=== PATIENT | male | born 1930 | race Caucasian/White ===

== ENCOUNTER 2016-07-24 11:16 | Inpatient (IN) | payer MEDICARE, BC ==
[2016-07-24] MEDS: Albuterol/Ipratropium 3.0-0.5 MG/3 ML Neb Soln NEB SCH ×3 (12:00→20:33)
[2016-07-24 12:30] LABS: CHLORIDE,CL 97 mEq/L (98-106); SODIUM,NA 135 mEq/L (136-145)
[2016-07-24] MEDS ORDERED: Magnesium Hydroxide 400 MG/5 ML Susp 30 ML Cup PO PRN (13:12)
[2016-07-24] MEDS ORDERED: Acetaminophen 325 MG Tab PO PRN (13:12)
[2016-07-24] MEDS ORDERED: Azithromycin 500 MG in Sodium Chloride 0.9% 250 ML IV ONE (14:30)
[2016-07-24] MEDS ORDERED: Insulin Aspart 100 Units/ML 3 ML Pen SUBCUT ONE (14:45)
[2016-07-24] MEDS: Furosemide 40 MG Tab PO SCH (15:35)
[2016-07-24] MEDS: Insulin Aspart 100 Units/ML 3 ML Pen SUBCUT SCH ×2 (17:28→20:35)
[2016-07-24] MEDS: Folic Acid 1 MG Tab PO SCH (19:40)
[2016-07-24] MEDS: Lisinopril 20 MG Tab PO SCH (19:40)
[2016-07-24] MEDS: Carvedilol 12.5 MG Tab PO SCH (19:41)
[2016-07-24] MEDS: Simvastatin 20 MG Tab PO SCH (19:41)
[2016-07-24] MEDS: Budesonide 0.5 MG/2 ML Neb Susp NEB SCH (20:33)
[2016-07-24] MEDS: Insulin Detemir 100 Units/ML 3 ML Pen SUBCUT SCH (20:36)
[2016-07-24] MEDS: Zolpidem 5 MG Tab PO PRN (20:40)
[2016-07-25] MEDS: Psyllium Husk Powder Sugar Free 5.85 GM Packet PO SCH (07:47)
[2016-07-25] MEDS: Aspirin 81 MG Tab.EC PO SCH (07:47)
[2016-07-25] MEDS: Furosemide 40 MG Tab PO SCH ×2 (07:48→16:00)
[2016-07-25] MEDS: Carvedilol 12.5 MG Tab PO SCH ×2 (07:48→19:34)
[2016-07-25] MEDS: Lisinopril 20 MG Tab PO SCH ×2 (07:48→19:34)
[2016-07-25] MEDS: Insulin Aspart 100 Units/ML 3 ML Pen SUBCUT SCH ×4 (07:50→20:43)
[2016-07-25] MEDS: [UNRECOGNIZED DRUG - REMARK] SCH (07:50)
[2016-07-25] MEDS ORDERED: Azithromycin 500 MG in Sodium Chloride 0.9% 250 ML IV SCH (08:00)
[2016-07-25 08:09] LABS: CHLORIDE,CL 103 mEq/L (98-106); SODIUM,NA 140 mEq/L (136-145)
[2016-07-25] MEDS: Albuterol/Ipratropium 3.0-0.5 MG/3 ML Neb Soln NEB SCH ×4 (10:21→20:45)
[2016-07-25] MEDS: Budesonide 0.5 MG/2 ML Neb Susp NEB SCH ×2 (10:21→20:45)
[2016-07-25] MEDS: Digoxin 250 MCG Tab PO SCH (12:29)
[2016-07-25] MEDS ORDERED: Warfarin 2.5 MG Tab PO ONE (14:30)
[2016-07-25] MEDS: Fluconazole 100 MG Tab PO SCH (16:00)
[2016-07-25] MEDS: Folic Acid 1 MG Tab PO SCH (19:33)
[2016-07-25] MEDS: Simvastatin 20 MG Tab PO SCH (19:33)
[2016-07-25] MEDS: Insulin Detemir 100 Units/ML 3 ML Pen SUBCUT SCH (20:39)
[2016-07-25] MEDS: Zolpidem 5 MG Tab PO PRN (20:51)
--- NOTE | 2016-07-26 07:06 | PN ---
DATE: 07/25/2016 S: Veronica Lawrence came in with uncontrolled diabetes yesterday, admitted in the hospital, started on insulin. He is doing nicely. Blood sugars have dropped nicely at 16 units of short-acting and then longer acting 12 units at night. Still coughing. O: NECK: Supple. CHEST: Wheezing. CARDIAC: Sounds are good. ASSESSMENT: BRONCHIOLITIS. C-REACTIVE PROTEIN IS NORMAL. SO, I AM QUESTIONING WHETHER HE MAY HAVE LIKE A YEAST TYPE INFECTION, SO I AM GOING TO GO AHEAD AND STOP ZITHROMAX AND START HIM ON DIFLUCAN, AND MONITOR HIS BLOOD SUGARS AND HIS INR. DIAGNOSES: 1. Uncontrolled diabetes. 2. Bronchiolitis. 3. Atrial fibrillation. 4. Left ventricular systolic congestive heart failure. We will get an echo. WILLIAN /[id number]
[2016-07-26 07:19] LABS: CHLORIDE,CL 106 mEq/L (98-106); SODIUM,NA 140 mEq/L (136-145)
[2016-07-26] MEDS: Psyllium Husk Powder Sugar Free 5.85 GM Packet PO SCH (07:40)
[2016-07-26] MEDS: Aspirin 81 MG Tab.EC PO SCH (07:41)
[2016-07-26] MEDS: Fluconazole 100 MG Tab PO SCH (07:41)
[2016-07-26] MEDS: Carvedilol 12.5 MG Tab PO SCH (07:41)
[2016-07-26] MEDS: Furosemide 40 MG Tab PO SCH (07:42)
[2016-07-26] MEDS: Lisinopril 20 MG Tab PO SCH (07:42)
[2016-07-26] MEDS: [UNRECOGNIZED DRUG - REMARK] SCH (07:43)
[2016-07-26] MEDS: Insulin Aspart 100 Units/ML 3 ML Pen SUBCUT SCH ×2 (07:43→12:11)
[2016-07-26] MEDS: Albuterol/Ipratropium 3.0-0.5 MG/3 ML Neb Soln NEB SCH ×2 (09:12→13:03)
[2016-07-26] MEDS: Budesonide 0.5 MG/2 ML Neb Susp NEB SCH (09:12)
--- NOTE | 2016-07-26 11:21 | PN ---
DATE: 07/26/2016 S: Veronica Lawrence has congestive heart failure, bronchiolitis, uncontrolled diabetes. He says he feels much better today. O: NECK: Supple. CHEST: Occasional wheeze. CARDIAC: Sounds are good. No edema. ASSESSMENT: 1. LEFT VENTRICULAR SYSTOLIC CONGESTIVE HEART FAILURE. ECHO PENDING. 2. UNCONTROLLED DIABETES, THAT IS NOW CONTROLLED. HE HAS BEEN INSTRUCTED TO HOW TO INJECT HIS INSULIN. 3. BRONCHIOLITIS. I STARTED HIM ON DIFLUCAN. HE HAS THE POSSIBILITY OF YEAST INFECTION, MUCH IMPROVED. HOPEFULLY THAT IS WHAT THE PROBLEM IS. ABHIJEET/SANTO /[id number]
[2016-07-26 11:42] VITALS: BP 127/73
[2016-07-26] MEDS: Digoxin 250 MCG Tab PO SCH (12:12)
--- NOTE | 2016-07-29 07:20 | DISCH ---
Veronica Lawrence is an elderly gentleman who came in to the clinic feeling markedly weak with a diagnosis of bronchiolitis, congestive heart failure and uncontrolled diabetes. Admitted to the hospital, started on insulin and responded nicely. At the time of discharge, blood sugars were running great fasting 90 on 12 units. He was given diabetic teaching and also glucose monitoring teaching while here in the hospital. I was concerned because the antibiotics had not been doing his bronchiolitis any good, so I switched him over to Diflucan and in fact he does have yeast in his sputum and much improved just through yesterday and today after being on the yeast medications. 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 I am more concerned about the fungal infection myself. Echocardiogram is pending. Labs, CBC looked good. INRs were iatrogenically elevated. Blood sugar went from 622 to 87. Creatinine is normal. Potassium looked good. Digoxin level was perfect, proBNP 2583 that is about where he had been at before and we will follow that as soon as he gets the diabetes under control. An echo is pending. DISPOSITION: The patient now discharged home. He will see diabetic teaching next week. He will see me back next week to do a panel with a 2 hour postprandial blood sugar in it, INR. DISCHARGE MEDICATIONS: Home medications plus Diflucan 100 daily for 10 days. Levemir 12 units. DISCHARGE DIAGNOSIS: 1. UNCONTROLLED DIABETES. 2. YEAST BRONCHIOLITIS. 3. LEFT VENTRICULAR SYSTOLIC CONGESTIVE HEART FAILURE. 4. CORONARY ARTERY DISEASE. 5. HYPERTENSION. 6. HYPERLIPIDEMIA. WILLIAN /[id number]
== END 2016-07-26 14:45 | disposition home or self-care (01) | DRG 638 ==
LOC: CC.MS 11:16 → CC.FCMC 11:16 → UNDOADMIN 12:22 → CC.MS 12:22
PROVIDERS: ADMIT General Practice; ATTEND General Practice
DX: E11.65 Type 2 diabetes mellitus with hyperglycemia (principal); J21.8 Acute bronchiolitis due to other specified organisms; I50.20 Unspecified systolic (congestive) heart failure; I10 Essential (primary) hypertension; I25.10 Atherosclerotic heart disease of native coronary artery without angina pectoris; E11.9 Type 2 diabetes mellitus without complications; E78.00 Pure hypercholesterolemia, unspecified; Z85.46 Personal history of malignant neoplasm of prostate; E78.5 Hyperlipidemia, unspecified; I48.91 Unspecified atrial fibrillation; Z88.1 Allergy status to other antibiotic agents; Z79.82 Long term (current) use of aspirin; Z79.01 Long term (current) use of anticoagulants; Z79.899 Other long term (current) drug therapy
CPT/HCPCS: 36415; 71020; 80048; 80162; 82607; 82746; 82962; 83735; 83880; 84443; 85025; 85610; 86140; 87070; 87077; 87106; 87186; 87205; 93005; 93010; 93306; 94640; 94640-76; A9270-GY; J0456; J1815-GY; J3370; J7050

== ENCOUNTER 2016-08-27 16:30 | Inpatient (IN) | payer MEDICARE, BC ==
[2016-08-27] MEDS ORDERED: Docusate Sodium 100 MG Cap PO PRN (17:28)
[2016-08-27] MEDS ORDERED: Magnesium Hydroxide 400 MG/5 ML Susp 30 ML Cup PO PRN (17:28)
[2016-08-27] MEDS ORDERED: Sodium Chloride 0.9% 10 ML Syringe FLUSH PRN (17:28)
[2016-08-27 18:09] LABS: CHLORIDE,CL 106 mEq/L (98-106); SODIUM,NA 142 mEq/L (136-145)
[2016-08-27] MEDS ORDERED: Levofloxacin/Dextrose 5%-Water 500 MG in Premix Bag 1 BAG IV ONE (19:00)
[2016-08-27] MEDS: Carvedilol 12.5 MG Tab PO SCH (19:54)
[2016-08-27] MEDS: Furosemide 40 MG Tab PO SCH (19:55)
[2016-08-27] MEDS: Lisinopril 20 MG Tab PO SCH (19:55)
[2016-08-27] MEDS: Simvastatin 20 MG Tab PO SCH (19:56)
[2016-08-27] MEDS ORDERED: Insulin Detemir 100 Units/ML 3 ML Pen SUBCUT SCH ×2 (20:00→20:36)
[2016-08-27] MEDS: Temazepam 15 MG Cap PO PRN (20:57)
[2016-08-27] MEDS ORDERED: Budesonide 0.5 MG/2 ML Neb Susp NEB SCH (21:00)
[2016-08-28] MEDS: Acetaminophen 325 MG Tab PO PRN ×2 (05:38→19:47)
[2016-08-28] MEDS: Furosemide 40 MG Tab PO SCH ×2 (07:41→13:00)
[2016-08-28] MEDS: Aspirin 81 MG Tab.EC PO SCH (07:42)
[2016-08-28] MEDS: Carvedilol 12.5 MG Tab PO SCH ×2 (07:42→19:47)
[2016-08-28] MEDS: Ascorbic Acid 500 MG Tab PO SCH (07:42)
[2016-08-28] MEDS: Lisinopril 20 MG Tab PO SCH ×2 (07:42→19:47)
[2016-08-28 08:00] LABS: CHLORIDE,CL 107 mEq/L (98-106); SODIUM,NA 142 mEq/L (136-145)
[2016-08-28] MEDS ORDERED: Insulin Detemir 100 Units/ML 3 ML Pen SUBCUT SCH ×4 (08:00→20:00)
[2016-08-28] MEDS ORDERED: Fluconazole 100 MG Tab PO SCH (08:00)
--- NOTE | 2016-08-28 12:45 | PN ---
DATE: 08/28/2016 Veronica Lawrence is in with probable MRSA of his left upper extremity. He came in with moderate severe cellulitis, started him on IV vancomycin. He responded dramatically and today he is 50% better. He has less pain. Rest of lab looks good. INR was adequate. Panel-8 looks good. ABHIJEET/SANTO /[id number]
[2016-08-28] MEDS: Digoxin 250 MCG Tab PO SCH (13:00)
[2016-08-28] MEDS ORDERED: Furosemide 40 MG Tab PO SCH (16:00)
[2016-08-28] MEDS: Warfarin 2 MG Tab PO SCH (17:33)
[2016-08-28] MEDS: Levofloxacin/Dextrose 5%-Water 500 MG in Premix Bag 1 BAG IV SCH (19:43)
[2016-08-28] MEDS: Folic Acid 1 MG Tab PO SCH (19:46)
[2016-08-28] MEDS: Simvastatin 20 MG Tab PO SCH (19:46)
[2016-08-28] MEDS: Insulin Detemir 100 Units/ML 3 ML Pen SUBCUT SCH (19:50)
[2016-08-28] MEDS: Temazepam 15 MG Cap PO PRN (21:56)
[2016-08-29 07:44] LABS: CHLORIDE,CL 108 mEq/L (98-106); SODIUM,NA 142 mEq/L (136-145)
[2016-08-29] MEDS: Carvedilol 12.5 MG Tab PO SCH ×2 (08:30→20:50)
[2016-08-29] MEDS: Furosemide 40 MG Tab PO SCH ×2 (08:31→12:41)
[2016-08-29] MEDS: Ascorbic Acid 500 MG Tab PO SCH (08:32)
[2016-08-29] MEDS: Aspirin 81 MG Tab.EC PO SCH (08:33)
[2016-08-29] MEDS: Insulin Detemir 100 Units/ML 3 ML Pen SUBCUT SCH ×2 (08:34→20:51)
[2016-08-29] MEDS: Lisinopril 20 MG Tab PO SCH ×2 (08:34→20:50)
--- NOTE | 2016-08-29 10:42 | PN ---
DATE: 08/29/2016 PROBLEM: MRSA, significant cellulitis of left upper extremity. O: On examination, the patient is alert, orientated. The swelling, erythema, and edema are gone down. ASSESSMENT: CELLULITIS. P: Continue present therapy. ABHIJEET/SANTO /[id number]
[2016-08-29] MEDS: Warfarin 2 MG Tab PO SCH (12:18)
[2016-08-29] MEDS: Digoxin 250 MCG Tab PO SCH (12:18)
[2016-08-29] MEDS: Folic Acid 1 MG Tab PO SCH (20:49)
[2016-08-29] MEDS: Simvastatin 20 MG Tab PO SCH (20:49)
[2016-08-29] MEDS: Temazepam 15 MG Cap PO PRN (20:50)
[2016-08-29] MEDS: Levofloxacin/Dextrose 5%-Water 500 MG in Premix Bag 1 BAG IV SCH (20:50)
[2016-08-30] MEDS: Furosemide 40 MG Tab PO SCH ×2 (07:51→12:23)
[2016-08-30] MEDS: Carvedilol 12.5 MG Tab PO SCH (07:51)
[2016-08-30] MEDS: Aspirin 81 MG Tab.EC PO SCH (07:51)
[2016-08-30] MEDS: Lisinopril 20 MG Tab PO SCH (07:52)
[2016-08-30] MEDS: Ascorbic Acid 500 MG Tab PO SCH (07:52)
[2016-08-30] MEDS: Insulin Detemir 100 Units/ML 3 ML Pen SUBCUT SCH (08:22)
[2016-08-30 08:32] LABS: CHLORIDE,CL 108 mEq/L (98-106); SODIUM,NA 141 mEq/L (136-145)
[2016-08-30 11:40] VITALS: BP 133/76
[2016-08-30] MEDS: Digoxin 250 MCG Tab PO SCH (12:19)
--- NOTE | 2016-09-02 07:26 | DISCH ---
HOSPITAL COURSE: Veronica Lawrence came in with moderate severe cellulitis of his left upper extremity, probably MRSA because he has improved after we started him on IV vancomycin. He has had MRSA before in his lungs, responded nicely at the time of discharge, minimal erythema, minimal edema of that left upper extremity. He said he felt well enough to go home. LABORATORY DATA: Labs here in the hospital, CBC looked good. INR's remained stable. For his atrial fibrillation Panel-8 looked good. Blood sugars were good. C-reactive protein was elevated and now is coming down. Urine looked clear. Digoxin level was good. DISPOSITION: The patient now is discharged home. We will see him back in the clinic on Friday. We will check an INR and a panel 8 because of the outpatient IV vancomycin for 7 days. DISCHARGE MEDICATIONS: Hospital medications except Levaquin, he will be on IV vancomycin. I will give him prednisone 20 daily. DISCHARGE DIAGNOSIS: 1. CELLULITIS. 2. ATRIAL FIBRILLATION. 3. CHRONIC LEFT VENTRICULAR SYSTOLIC CONGESTIVE HEART FAILURE. 4. DIABETES MELLITUS. 5. HYPERTENSION. 6. HYPERLIPIDEMIA. WILLIAN /[id number]
== END 2016-08-30 13:00 | disposition home or self-care (01) | DRG 603 ==
LOC: CC.MS 16:30 → UNDOADMIN 16:30 → CC.MS 17:28
PROVIDERS: ADMIT General Practice; ATTEND General Practice
DX: L03.114 Cellulitis of left upper limb (principal); I50.22 Chronic systolic (congestive) heart failure; A49.02 Methicillin resistant Staphylococcus aureus infection, unspecified site; I48.91 Unspecified atrial fibrillation; M19.90 Unspecified osteoarthritis, unspecified site; I11.0 Hypertensive heart disease with heart failure; E78.5 Hyperlipidemia, unspecified; E78.00 Pure hypercholesterolemia, unspecified; E11.9 Type 2 diabetes mellitus without complications; Z85.46 Personal history of malignant neoplasm of prostate; Z79.01 Long term (current) use of anticoagulants; Z79.82 Long term (current) use of aspirin; Z79.4 Long term (current) use of insulin; Z79.899 Other long term (current) drug therapy; Z88.1 Allergy status to other antibiotic agents
CPT/HCPCS: 36415; 80048; 80053; 80162; 80202; 81001; 82962; 83735; 84443; 85025; 85610; 86140; A9270-GY; J1815-GY; J1956; J3370; J7050

== ENCOUNTER 2016-12-30 15:42 | Inpatient (IN) | payer MEDICARE, BC ==
[2016-12-30] MEDS ORDERED: Acetaminophen 325 MG Tab PO ONE (16:26)
[2016-12-30] MEDS ORDERED: Sodium Chloride 0.9% 10 ML Syringe FLUSH PRN (16:30)
[2016-12-30] MEDS ORDERED: Temazepam 15 MG Cap PO PRN (16:30)
[2016-12-30] MEDS ORDERED: Magnesium Hydroxide 400 MG/5 ML Susp 30 ML Cup PO PRN (16:30)
[2016-12-30] MEDS: Albuterol/Ipratropium 3.0-0.5 MG/3 ML Neb Soln NEB SCH ×2 (17:00→20:26)
[2016-12-30] MEDS ORDERED: methylPREDNISolone Sodium Succinate 125 MG/2 ML SDV IV ONE (17:00)
[2016-12-30] MEDS: cefTRIAXone 1 GM Vial IVPUSH SCH (17:02)
[2016-12-30] MEDS: Furosemide 40 MG Tab PO SCH (17:11)
[2016-12-30 17:20] LABS: CHLORIDE,CL 103 mEq/L (98-106); SODIUM,NA 139 mEq/L (136-145)
[2016-12-30] MEDS ORDERED: Insulin Aspart 100 Units/ML 3 ML Pen SUBCUT SCH (17:30)
[2016-12-30] MEDS: Insulin Aspart 100 Units/ML 3 ML Pen SUBCUT SCH ×2 (17:46→20:29)
[2016-12-30] MEDS: Azithromycin 500 MG in Sodium Chloride 0.9% 250 ML IV SCH (18:04)
[2016-12-30] MEDS: Lisinopril 20 MG Tab PO SCH (19:46)
[2016-12-30] MEDS: Simvastatin 20 MG Tab PO SCH (19:46)
[2016-12-30] MEDS: Folic Acid 1 MG Tab PO SCH (19:46)
[2016-12-30] MEDS: Carvedilol 12.5 MG Tab PO SCH (19:47)
[2016-12-30] MEDS: Psyllium Husk Powder Sugar Free 5.85 GM Packet PO SCH (19:49)
[2016-12-30] MEDS: Insulin Detemir 100 Units/ML 3 ML Pen SUBCUT SCH (20:29)
[2016-12-30] MEDS: Zolpidem 5 MG Tab PO PRN (20:58)
[2016-12-31 07:35] LABS: CHLORIDE,CL 105 mEq/L (98-106); SODIUM,NA 139 mEq/L (136-145)
[2016-12-31] MEDS: methylPREDNISolone Sodium Succinate 125 MG/2 ML SDV IVPUSH SCH (07:56)
[2016-12-31] MEDS ORDERED: Non-Formulary Medication 1 Each (Psyllium Husk [Metamucil] 660 GM) PO SCH (08:00)
[2016-12-31] MEDS ORDERED: ASPARTAME PO SCH (08:00)
[2016-12-31] MEDS ORDERED: PSYLLIUM SEED PO SCH (08:00)
[2016-12-31] MEDS: Carvedilol 12.5 MG Tab PO SCH ×2 (08:04→19:45)
[2016-12-31] MEDS: Spironolactone 25 MG Tab PO SCH (08:04)
[2016-12-31] MEDS: Aspirin 81 MG Tab.EC PO SCH (08:04)
[2016-12-31] MEDS: Lisinopril 20 MG Tab PO SCH ×2 (08:04→19:40)
[2016-12-31] MEDS: Furosemide 40 MG Tab PO SCH ×2 (08:05→12:23)
[2016-12-31] MEDS: Psyllium Husk Powder Sugar Free 5.85 GM Packet PO SCH (08:06)
[2016-12-31] MEDS: Insulin Detemir 100 Units/ML 3 ML Pen SUBCUT SCH ×3 (08:07→20:33)
[2016-12-31] MEDS: Insulin Aspart 100 Units/ML 3 ML Pen SUBCUT SCH ×4 (08:08→20:35)
[2016-12-31] MEDS: Albuterol/Ipratropium 3.0-0.5 MG/3 ML Neb Soln NEB SCH ×4 (09:01→20:27)
--- NOTE | 2016-12-31 10:17 | PN ---
DATE: 12/31/2016 S: This gentleman came in with [id number] bronchiolitis and congestive heart failure, which is chronic. O: NECK: Supple. CHEST: A little bit of wheezing, but much improved. CARDIAC: Sounds are okay. EXTREMITIES: No edema. ASSESSMENT: 1. CHRONIC LEFT VENTRICULAR SYSTOLIC CONGESTIVE HEART FAILURE. 2. BRONCHIOLITIS. P: Continue present therapy. ABHIJEET/SANTO /[id number]
[2016-12-31] MEDS ORDERED: Digoxin 250 MCG Tab PO SCH (12:00)
[2016-12-31] MEDS: cefTRIAXone 1 GM Vial IVPUSH SCH (15:50)
[2016-12-31] MEDS: Azithromycin 500 MG in Sodium Chloride 0.9% 250 ML IV SCH (16:47)
[2016-12-31] MEDS: Simvastatin 20 MG Tab PO SCH (19:44)
[2016-12-31] MEDS: Folic Acid 1 MG Tab PO SCH (19:45)
[2016-12-31] MEDS: Zolpidem 5 MG Tab PO PRN (20:27)
[2017-01-01] MEDS: Zolpidem 5 MG Tab PO PRN (00:24)
[2017-01-01] MEDS: Aspirin 81 MG Tab.EC PO SCH (07:31)
[2017-01-01] MEDS: Carvedilol 12.5 MG Tab PO SCH (07:31)
[2017-01-01] MEDS: Spironolactone 25 MG Tab PO SCH (07:31)
[2017-01-01] MEDS: Furosemide 40 MG Tab PO SCH (07:32)
[2017-01-01] MEDS: methylPREDNISolone Sodium Succinate 125 MG/2 ML SDV IVPUSH SCH (07:33)
[2017-01-01] MEDS: Lisinopril 20 MG Tab PO SCH (07:33)
[2017-01-01 07:34] VITALS: BP 142/70
[2017-01-01] MEDS: Insulin Detemir 100 Units/ML 3 ML Pen SUBCUT SCH (07:43)
[2017-01-01] MEDS: Insulin Aspart 100 Units/ML 3 ML Pen SUBCUT SCH (07:46)
[2017-01-01] MEDS ORDERED: Psyllium Husk Powder Sugar Free 5.85 GM Packet PO SCH (08:00)
[2017-01-01] MEDS: Albuterol/Ipratropium 3.0-0.5 MG/3 ML Neb Soln NEB SCH (09:01)
[2017-01-01] MEDS ORDERED: Warfarin 2 MG Tab PO SCH (12:00)
--- NOTE | 2017-01-02 08:37 | DISCH ---
HOSPITAL COURSE: Veronica Lawrence is an elderly gentleman came in with shortness of breath, diagnosis of bronchiolitis, admitted, now started on IV antibiotics. Some IV steroids have caused his blood sugar to go high. At the time of discharge, neck was supple, chest clear, cardiac sounds are good. He had no edema. Lab here in the hospital, digoxin level borderline. INR was going up from IV antibiotics. We will modify that. On admission, his white count was 14.6 and now repeat that. Kidney functions were good. Blood sugars were elevated. C- reactive protein 5.3. ProBNP was 3238, which he has been at for years from his chronic congestive heart failure. Urinalysis looked good. DISPOSITION: The patient now discharged home. We will see him back in the clinic next Friday for an INR. DISCHARGE MEDICATIONS: Home medications, but we will decrease his Coumadin to 1 mg daily because of continue antibiotics. Discharge medications, again home medications other than the Coumadin and prednisone 20 daily for 5 days, Levaquin 500 daily. DISCHARGE DIAGNOSIS: 1. ACUTE BRONCHIOLITIS. 2. LEFT VENTRICULAR SYSTOLIC CONGESTIVE HEART FAILURE. 3. DIABETES MELLITUS. 4. ATRIAL FIBRILLATION. 5. HYPERLIPIDEMIA. 6. HYPERTENSION. 7. CORONARY ARTERY DISEASE. 8. PROSTATE CANCER. ABHIJEET/SANTO /[id number]
== END 2017-01-01 10:15 | disposition home or self-care (01) | DRG 202 ==
LOC: CC.MS 16:02 → UNDOADMIN 16:02 → CC.MS 16:30
PROVIDERS: ADMIT General Practice; ATTEND General Practice
DX: J21.9 Acute bronchiolitis, unspecified (principal); I50.1 Left ventricular failure, unspecified; I50.22 Chronic systolic (congestive) heart failure; I11.0 Hypertensive heart disease with heart failure; I48.91 Unspecified atrial fibrillation; E11.9 Type 2 diabetes mellitus without complications; E78.5 Hyperlipidemia, unspecified; I25.10 Atherosclerotic heart disease of native coronary artery without angina pectoris; C61 Malignant neoplasm of prostate; Z79.01 Long term (current) use of anticoagulants; Z79.82 Long term (current) use of aspirin; Z79.4 Long term (current) use of insulin; Z79.899 Other long term (current) drug therapy
CPT/HCPCS: 36415; 71020; 80048; 80053; 80162; 81001; 82962; 83735; 83880; 84443; 85025; 85610; 86140; 87070; 87205; 93005; 94640; 94640-76; 94644; 97161-GP; A9270-GY; J0456; J0696; J1815-GY; J2930; J7050

== ENCOUNTER 2017-05-05 10:53 | Inpatient (IN) | payer MEDICARE, BC ==
[2017-05-05] MEDS ORDERED: Temazepam 15 MG Cap PO PRN (12:07)
[2017-05-05] MEDS ORDERED: Acetaminophen 325 MG Tab PO PRN (12:07)
[2017-05-05] MEDS ORDERED: Sodium Chloride 0.9% 10 ML Syringe FLUSH PRN (12:07)
[2017-05-05] MEDS ORDERED: Ondansetron 4 MG/2 ML SDV IV PRN (12:07)
[2017-05-05] MEDS ORDERED: Magnesium Hydroxide 400 MG/5 ML Susp 30 ML Cup PO PRN (12:07)
[2017-05-05] MEDS ORDERED: IPRATROPIUM BROMIDE NS PRN (13:02)
[2017-05-05] MEDS: Albuterol/Ipratropium 3.0-0.5 MG/3 ML Neb Soln NEB SCH ×3 (13:34→21:01)
[2017-05-05] MEDS: cefTRIAXone 1 GM Vial IVPUSH SCH (13:52)
[2017-05-05] MEDS: methylPREDNISolone Sodium Succinate 125 MG/2 ML SDV IVPUSH SCH (13:53)
[2017-05-05] MEDS: Warfarin 2 MG Tab PO SCH (14:56)
[2017-05-05] MEDS: Azithromycin 500 MG in Sodium Chloride 0.9% 250 ML IV SCH (14:57)
[2017-05-05] MEDS: Insulin Aspart 100 Units/ML 3 ML Pen SUBCUT SCH ×2 (19:02→21:00)
[2017-05-05] MEDS: Carvedilol 12.5 MG Tab PO SCH (20:02)
[2017-05-05] MEDS: Simvastatin 20 MG Tab PO SCH (20:02)
[2017-05-05] MEDS: Cholecalciferol (Vitamin D3) 1,000 Unit Tab PO SCH (20:03)
[2017-05-05] MEDS: Folic Acid 1 MG Tab PO SCH (20:03)
[2017-05-05] MEDS: Insulin Detemir 100 Units/ML 3 ML Pen SUBCUT SCH (21:00)
[2017-05-05] MEDS: Zolpidem 5 MG Tab PO PRN (21:29)
[2017-05-06] MEDS: Carvedilol 12.5 MG Tab PO SCH ×2 (08:00→20:02)
[2017-05-06] MEDS: Aspirin 81 MG Tab.EC PO SCH (08:00)
[2017-05-06] MEDS: Spironolactone 25 MG Tab PO SCH (08:00)
[2017-05-06] MEDS: Montelukast 10 MG Tab PO SCH (08:00)
[2017-05-06] MEDS: Warfarin 2 MG Tab PO SCH (08:00)
[2017-05-06] MEDS: Furosemide 40 MG Tab PO SCH ×2 (08:00→12:00)
[2017-05-06] MEDS: Insulin Detemir 100 Units/ML 3 ML Pen SUBCUT SCH ×2 (08:00→20:04)
[2017-05-06] MEDS: Digoxin 125 MCG Tab PO SCH (08:00)
[2017-05-06] MEDS: Psyllium Husk Powder Sugar Free 5.85 GM Packet PO SCH (08:00)
[2017-05-06] MEDS: Albuterol/Ipratropium 3.0-0.5 MG/3 ML Neb Soln NEB SCH ×4 (08:00→20:02)
[2017-05-06] MEDS: Insulin Aspart 100 Units/ML 3 ML Pen SUBCUT SCH ×4 (12:00→20:48)
[2017-05-06] MEDS: Azithromycin 500 MG in Sodium Chloride 0.9% 250 ML IV SCH (14:36)
[2017-05-06] MEDS: methylPREDNISolone Sodium Succinate 125 MG/2 ML SDV IVPUSH SCH (14:38)
[2017-05-06] MEDS: cefTRIAXone 1 GM Vial IVPUSH SCH (14:38)
[2017-05-06] MEDS: Cholecalciferol (Vitamin D3) 1,000 Unit Tab PO SCH (20:02)
[2017-05-06] MEDS: Simvastatin 20 MG Tab PO SCH (20:02)
[2017-05-06] MEDS: Folic Acid 1 MG Tab PO SCH (20:02)
[2017-05-06] MEDS: Zolpidem 5 MG Tab PO PRN (20:51)
[2017-05-07] MEDS: Psyllium Husk Powder Sugar Free 5.85 GM Packet PO SCH (08:08)
[2017-05-07] MEDS: Albuterol/Ipratropium 3.0-0.5 MG/3 ML Neb Soln NEB SCH ×4 (08:08→21:05)
[2017-05-07] MEDS: Carvedilol 12.5 MG Tab PO SCH ×2 (08:09→21:04)
[2017-05-07] MEDS: Lisinopril 5 MG Tab PO SCH (08:09)
[2017-05-07] MEDS: Spironolactone 25 MG Tab PO SCH (08:09)
[2017-05-07] MEDS: Furosemide 40 MG Tab PO SCH ×2 (08:10→11:32)
[2017-05-07] MEDS: Digoxin 125 MCG Tab PO SCH (08:10)
[2017-05-07] MEDS: Aspirin 81 MG Tab.EC PO SCH (08:10)
[2017-05-07] MEDS: Montelukast 10 MG Tab PO SCH (08:10)
[2017-05-07] MEDS: Insulin Detemir 100 Units/ML 3 ML Pen SUBCUT SCH ×2 (08:11→21:07)
[2017-05-07] MEDS: Insulin Aspart 100 Units/ML 3 ML Pen SUBCUT SCH ×4 (08:11→21:07)
[2017-05-07] MEDS: Warfarin 2 MG Tab PO SCH (08:12)
--- NOTE | 2017-05-07 08:20 | PN ---
DATE: 05/06/2017 S: Veronica Lawrence is in with acute bronchiolitis, atrial fibrillation, and congestive heart failure, presently on IV therapy. He says he feels much better today. O: NECK: Supple. CHEST: Only occasional wheeze today. CARDIAC: Sounds are good. No edema. ASSESSMENT: BRONCHIOLITIS, QUESTION EARLY ASPIRATION PNEUMONITIS. P: Continue present therapy. ABHIJEET/SANTO /[id number]
[2017-05-07] MEDS: Lactated Ringers 1,000 ML IV SCH ×2 (11:32→21:43)
--- NOTE | 2017-05-07 11:59 | PN ---
DATE: 05/07/2017 Veronica Lawrence is in with probably aspiration bronchiolitis with left ventricular systolic congestive heart failure. On review of lab, his white counts drop, INR is adequate, blood sugars have been okay, C-reactive protein is up a little bit. Otherwise, he is doing better physically, so we will continue to monitor him. DIAGNOSES: Bronchiolitis, question aspiration pneumonitis; left ventricular systolic congestive heart failure; and diabetes mellitus. ABHIJEET/SANTO /[id number]
[2017-05-07] MEDS: Azithromycin 500 MG in Sodium Chloride 0.9% 250 ML IV SCH (13:00)
[2017-05-07] MEDS: cefTRIAXone 1 GM Vial IVPUSH SCH (13:00)
[2017-05-07] MEDS: methylPREDNISolone Sodium Succinate 125 MG/2 ML SDV IVPUSH SCH (13:00)
[2017-05-07] MEDS: Sulfamethoxazole/Trimethoprim 800-160 MG Tab PO SCH (21:04)
[2017-05-07] MEDS: Folic Acid 1 MG Tab PO SCH (21:04)
[2017-05-07] MEDS: Cholecalciferol (Vitamin D3) 1,000 Unit Tab PO SCH (21:04)
[2017-05-07] MEDS: Simvastatin 20 MG Tab PO SCH (21:05)
[2017-05-07] MEDS: Zolpidem 5 MG Tab PO PRN (21:43)
[2017-05-08] MEDS: Carvedilol 12.5 MG Tab PO SCH ×2 (07:53→19:52)
[2017-05-08] MEDS: Albuterol/Ipratropium 3.0-0.5 MG/3 ML Neb Soln NEB SCH ×4 (07:53→19:52)
[2017-05-08] MEDS: Sulfamethoxazole/Trimethoprim 800-160 MG Tab PO SCH ×2 (07:53→19:52)
[2017-05-08] MEDS: Montelukast 10 MG Tab PO SCH (07:53)
[2017-05-08] MEDS: Lisinopril 5 MG Tab PO SCH (07:53)
[2017-05-08] MEDS: Digoxin 125 MCG Tab PO SCH (07:53)
[2017-05-08] MEDS: Psyllium Husk Powder Sugar Free 5.85 GM Packet PO SCH (07:53)
[2017-05-08] MEDS: Aspirin 81 MG Tab.EC PO SCH (07:53)
[2017-05-08] MEDS: Spironolactone 25 MG Tab PO SCH (07:53)
[2017-05-08] MEDS: Furosemide 40 MG Tab PO SCH ×2 (07:53→11:51)
[2017-05-08] MEDS: Warfarin 2 MG Tab PO SCH (07:53)
[2017-05-08] MEDS: Insulin Aspart 100 Units/ML 3 ML Pen SUBCUT SCH ×4 (07:55→20:07)
[2017-05-08] MEDS: Insulin Detemir 100 Units/ML 3 ML Pen SUBCUT SCH ×2 (07:57→20:07)
--- NOTE | 2017-05-08 09:54 | PCM.PN ---
- General Info Date of Service: 05/08/17 Admission Dx/Problem (Free Text): RUL and RML Pneumonia Subjective Update: Patient reports he was feeling better yesterday. He reports he was up walking around in the halls. He does report that this morning he feels a little worse. Patient is requiring 1 L O2. He reports continued cough, productive of a small amount of sputum. Denies any fever or chills. Denies any shortness of breath at rest. Functional Status: Reports: Pain Controlled, Tolerating Diet, Ambulating, Urinating. Denies: New Symptoms - Review of Systems General: Reports: No Symptoms. Denies: Fever, Weakness, Fatigue HEENT: Reports: No Symptoms Pulmonary: Reports: Cough, Wheezing. Denies: Shortness of Breath, Pleuritic Chest Pain, Sputum, Hemoptysis Cardiovascular: Reports: Dyspnea on Exertion. Denies: Chest Pain, Palpitations , Edema, Lightheadedness Gastrointestinal: Reports: No Symptoms Genitourinary: Reports: No Symptoms Musculoskeletal: Reports: No Symptoms Skin: Reports: No Symptoms Neurological: Reports: No Symptoms Psychiatric: Reports: No Symptoms - Patient Data Vitals - Most Recent: Last Vital Signs Temp 96.2 F 05/08/17 08:00 Pulse 70 05/08/17 08:00 Resp 21 H 05/08/17 08:00 BP 148/75 H 05/08/17 08:00 Pulse Ox 95 05/08/17 08:00 Weight - Most Recent: 170 lb I&O - Last 24 Hours: Intake & Output 05/07/17 05/08/17 05/08/17 22:59 06:59 14:59 Intake Total 764 Balance 764 Lab Results Last 24 Hours: Laboratory Results - last 24 hr 05/07/17 05/07/17 05/07/17 Range/Units 11:41 17:11 19:56 WBC (5.0-10.0) 10^3/uL RBC (4.50-6.00) 10^6/uL Hgb (14.0-18.0) g/dL Hct (40.0-54.0) % MCV (82.0-94.0) fL MCH (27.0-32.0) pg MCHC (33.0-38.0) g/dL RDW Coeff of Brooke (11.0-15.0) % Plt Count (150-400) 10^3/uL Neut % (Auto) (35-85) % Lymph % (Auto) (10-55) % [place] % (Auto) (0-16) % Eos % (Auto) (0-5) % Baso % (Auto) (0-3) % Neut # (Auto) (1.80-7.00) 10^3/uL Lymph # (Auto) (1.00-4.80) 10^3/uL [place] # (Auto) (0.00-0.80) 10^3/uL Eos # (Auto) (0.00-0.45) 10^3/uL Baso # (Auto) 10^3/uL PT (9.7-12.3) SEC INR (0.92-1.18) Sodium (136-145) mEq/L Potassium (3.5-5.0) mEq/L Chloride (98-106) mEq/L Carbon Dioxide (21-32) mmol/L BUN (7-18) mg/dL Creatinine (0.7-1.3) mg/dL Est Cr Clr Drug Dosing mL/min Estimated GFR (MDRD) (>=60) mL/min Glucose (75-99) mg/dL POC Glucose 238 H 162 H 237 H (75-105) mg/dl Calcium (8.4-10.1) mg/dL C-Reactive Protein (0.2-0.8) mg/dL 05/08/17 05/08/17 05/08/17 Range/Units 07:15 07:15 07:15 WBC 16.1 H (5.0-10.0) 10^3/uL RBC 4.22 L (4.50-6.00) 10^6/uL Hgb 13.4 L (14.0-18.0) g/dL Hct 40.9 (40.0-54.0) % MCV 96.9 H (82.0-94.0) fL MCH 31.8 (27.0-32.0) pg MCHC 32.8 L (33.0-38.0) g/dL RDW Coeff of Brooke 14.8 (11.0-15.0) % Plt Count 246 (150-400) 10^3/uL Neut % (Auto) 89.5 H (35-85) % Lymph % (Auto) 5.7 L (10-55) % [place] % (Auto) 4.8 (0-16) % Eos % (Auto) 0 (0-5) % Baso % (Auto) 0 (0-3) % Neut # (Auto) 14.36 H (1.80-7.00) 10^3/uL Lymph # (Auto) 0.92 L (1.00-4.80) 10^3/uL [place] # (Auto) 0.77 (0.00-0.80) 10^3/uL Eos # (Auto) 0.00 (0.00-0.45) 10^3/uL Baso # (Auto) 0.00 10^3/uL PT 28.5 H (9.7-12.3) SEC INR 2.56 H (0.92-1.18) Sodium 142 (136-145) mEq/L Potassium 4.3 (3.5-5.0) mEq/L Chloride 108 H (98-106) mEq/L Carbon Dioxide 28 (21-32) mmol/L BUN 44 H (7-18) mg/dL Creatinine 1.4 H (0.7-1.3) mg/dL Est Cr Clr Drug Dosing 34.81 mL/min Estimated GFR (MDRD) 48 L (>=60) mL/min Glucose 137 H (75-99) mg/dL POC Glucose (75-105) mg/dl Calcium 8.4 (8.4-10.1) mg/dL C-Reactive Protein 3.9 H (0.2-0.8) mg/dL 05/08/17 Range/Units 07:50 WBC (5.0-10.0) 10^3/uL RBC (4.50-6.00) 10^6/uL Hgb (14.0-18.0) g/dL Hct (40.0-54.0) % MCV (82.0-94.0) fL MCH (27.0-32.0) pg MCHC (33.0-38.0) g/dL RDW Coeff of Brooke (11.0-15.0) % Plt Count (150-400) 10^3/uL Neut % (Auto) (35-85) % Lymph % (Auto) (10-55) % [place] % (Auto) (0-16) % Eos % (Auto) (0-5) % Baso % (Auto) (0-3) % Neut # (Auto) (1.80-7.00) 10^3/uL Lymph # (Auto) (1.00-4.80) 10^3/uL [place] # (Auto) (0.00-0.80) 10^3/uL Eos # (Auto) (0.00-0.45) 10^3/uL Baso # (Auto) 10^3/uL PT (9.7-12.3) SEC INR (0.92-1.18) Sodium (136-145) mEq/L Potassium (3.5-5.0) mEq/L Chloride (98-106) mEq/L Carbon Dioxide (21-32) mmol/L BUN (7-18) mg/dL Creatinine (0.7-1.3) mg/dL Est Cr Clr Drug Dosing mL/min Estimated GFR (MDRD) (>=60) mL/min Glucose (75-99) mg/dL POC Glucose 128 H (75-105) mg/dl Calcium (8.4-10.1) mg/dL C-Reactive Protein (0.2-0.8) mg/dL [place] Results Last 24 Hours: Microbiology 05/05/17 12:07 Gram Stain - Final Sputum - Expectorated Sputum Culture - Final (Mrsa) Staphylococcus Aureus Med Orders - Current: Current Medications Acetaminophen (Tylenol) 650 mg PO Q4H PRN PRN Reason: Pain (Mild 1-3)/fever Last Admin: 05/05/17 14:05 Dose: 650 mg Albuterol/Ipratropium (Duoneb 3.0-0.5 Mg/3 Ml) 3 ml NEB QID [facility] Last Admin: 05/08/17 07:53 Dose: 3 ml Aspirin (Halfprin) 81 mg PO DAILY [facility] Last Admin: 05/08/17 07:53 Dose: 81 mg Carvedilol (Coreg) 25 mg PO BID [facility] Last Admin: 05/08/17 07:53 Dose: 25 mg Cholecalciferol (Vitamin D3) 2,000 units PO BEDTIME [facility] Last Admin: 05/07/17 21:04 Dose: 2,000 units Digoxin (Lanoxin) 125 mcg PO DAILY [facility] Last Admin: 05/08/17 07:53 Dose: 125 mcg Folic Acid (Folic Acid) 0.5 mg PO BEDTIME [facility] Last Admin: 05/07/17 21:04 Dose: 0.5 mg Furosemide (Lasix) 40 mg PO 1200 [facility] Last Admin: 05/07/17 11:32 Dose: 40 mg Furosemide (Lasix) 40 mg PO WITHBREAKFAST [facility] Last Admin: 05/08/17 07:53 Dose: 40 mg Lactated Ringer's (Ringers, Lactated) 1,000 mls @ 75 mls/hr IV ASDIRECTED [facility] Last Admin: 05/07/17 21:43 Dose: 75 mls/hr Vancomycin HCl 1 gm/ Sodium (Chloride) 250 mls @ 167 mls/hr IV Q24H [facility] Last Admin: 05/08/17 07:55 Dose: 167 mls/hr Insulin Aspart (Novolog) 0 unit SUBCUT WITHMEALSANDBED [facility] PRN Reason: Protocol Last Admin: 05/08/17 07:55 Dose: Not Given Insulin Detemir (Levemir) 8 unit SUBCUT BEDTIME [facility] Last Admin: 05/07/17 21:07 Dose: 8 units Insulin Detemir (Levemir) 12 unit SUBCUT WITHBREAKFAST [facility] Last Admin: 05/08/17 07:57 Dose: 12 units Lisinopril (Prinivil) 5 mg PO DAILY [facility] Last Admin: 05/08/17 07:53 Dose: 5 mg Magnesium Hydroxide (Milk Of Magnesia) 30 ml PO Q12H PRN PRN Reason: Constipation Methylprednisolone Sodium Succinate (Solu-Medrol) 62.5 mg IVPUSH Q24H [facility] Last Admin: 05/07/17 13:00 Dose: 62.5 mg Montelukast Sodium (Singulair) 10 mg PO DAILY [facility] Last Admin: 05/08/17 07:53 Dose: 10 mg Ondansetron HCl (Zofran) 4 mg IV Q6H PRN PRN Reason: Nausea/Vomiting Psyllium Husk (Metamucil Sugar Free) 1 pkt PO DAILY [facility] Last Admin: 05/08/17 07:53 Dose: 1 pkt Simvastatin (Zocor) 20 mg PO BEDTIME [facility] Last Admin: 05/07/17 21:05 Dose: 20 mg Sodium Chloride (Saline Flush) 10 ml FLUSH ASDIRECTED PRN PRN Reason: Keep Vein Open Spironolactone (Aldactone) 25 mg PO DAILY [facility] Last Admin: 05/08/17 07:53 Dose: 25 mg Temazepam (Restoril) 15 mg PO BEDTIME PRN PRN Reason: Sleep Trimethoprim/Sulfamethoxazole (Septra Ds) 1 tab PO BID [facility] Last Admin: 05/08/17 07:53 Dose: 1 tab Vancomycin HCl (Pharmacy To Dose - Vancomycin) 1 dose .XX ASDIRECTED [facility] Warfarin Sodium (Coumadin) 2 mg PO DAILY [facility] Last Admin: 05/08/17 07:53 Dose: 2 mg Zolpidem Tartrate (Ambien) 5 mg PO BEDTIME PRN PRN Reason: Insomnia Last Admin: 05/07/17 21:43 Dose: 5 mg Discontinued Medications Ceftriaxone Sodium (Rocephin) 1 gm IVPUSH Q24H [facility] Last Admin: 05/07/17 13:00 Dose: 1 gm Azithromycin 500 mg/ Sodium (Chloride) 250 mls @ 250 mls/hr IV Q24H [facility] Last Admin: 05/07/17 13:00 Dose: 250 mls/hr - Exam Quality Assessment: Supplemental Oxygen, DVT Prophylaxis General: Alert, Oriented, No Acute Distress HEENT: Pupils Equal, Pupils Reactive, EOMI, Mucous Membr. Moist/Bug Tussle Neck: Supple Lungs: Decreased Breath Sounds, Wheezing Cardiovascular: Regular Rate, Regular Rhythm, No Murmurs GI/Abdominal Exam: Normal Bowel Sounds, Soft, Non-Tender, No Organomegaly, No Distention, No Abnormal Bruit, No Mass, Pelvis Stable Back Exam: Normal Inspection, Full Range of Motion Extremities: Normal Inspection, Normal Range of Motion, Non-Tender, No Pedal Edema, Normal Capillary Refill Skin: Warm, Dry, Intact Neurological: No New Focal Deficit Psy/Mental Status: Alert, Normal Affect, Normal Mood - Problem List & Annotations (1) Pneumonia SNOMED Code(s): 845838972 Code(s): J18.9 - PNEUMONIA, UNSPECIFIED ORGANISM Status: Acute Priority: High Current Visit: Yes Qualifiers: Pneumonia type: due to methicillin-resistant Staphylococcus aureus (MRSA) Laterality: right Lung location: upper lobe of lung Qualified Code(s): J15.212 - Pneumonia due to Methicillin resistant Staphylococcus aureus (2) Congestive heart failure (CHF) SNOMED Code(s): 84633830 Code(s): I50.9 - HEART FAILURE, UNSPECIFIED Status: Chronic Current Visit : No Qualifiers: Congestive heart failure type: systolic Congestive heart failure chronicity : chronic Qualified Code(s): I50.22 - Chronic systolic (congestive) heart failure (3) HTN, Benign hypertension SNOMED Code(s): 80192089 Code(s): I10 - ESSENTIAL (PRIMARY) HYPERTENSION Status: Chronic Priority : Medium Current Visit: No (4) Hyperlipidemia SNOMED Code(s): 55833956 Code(s): E78.5 - HYPERLIPIDEMIA, UNSPECIFIED Status: Chronic Priority: Low Current Visit: No - Problem List Review Problem List Initiated/Reviewed/Updated: Yes - My Orders Last 24 Hours: My Active Orders 05/09/17 06:00 BMP [BASIC METABOLIC PANEL,BMP] [CHEM] DAILY C-REACTIVE PROTEIN [CHEM] DAILY CBC WITH AUTO DIFF [HEME] DAILY INR,PT,PROTHROMBIN TIME [COAG] DAILY - Plan Plan:: WBCs remain elevated at 16.1. They are trending down. CRP also trending down. Will switch patient to IV Vancomycin as sputum culture shows MRSA. Wean oxygen as able. Plan to get at least 2 doses of IV Vanco prior to discharge. Will reevaluate patient tomorrow morning to determine readiness for discharge.
[2017-05-08] MEDS: methylPREDNISolone Sodium Succinate 125 MG/2 ML SDV IVPUSH SCH (12:20)
[2017-05-08] MEDS: Lactated Ringers 1,000 ML IV SCH ×2 (17:26→19:53)
[2017-05-08] MEDS: Folic Acid 1 MG Tab PO SCH (19:52)
[2017-05-08] MEDS: Simvastatin 20 MG Tab PO SCH (19:53)
[2017-05-08] MEDS: Zolpidem 5 MG Tab PO PRN (19:53)
[2017-05-08] MEDS: Cholecalciferol (Vitamin D3) 1,000 Unit Tab PO SCH (19:53)
[2017-05-09] MEDS: Psyllium Husk Powder Sugar Free 5.85 GM Packet PO SCH (07:23)
[2017-05-09] MEDS: Albuterol/Ipratropium 3.0-0.5 MG/3 ML Neb Soln NEB SCH (07:23)
[2017-05-09] MEDS: Warfarin 2 MG Tab PO SCH (07:24)
[2017-05-09] MEDS: Sulfamethoxazole/Trimethoprim 800-160 MG Tab PO SCH (07:24)
[2017-05-09] MEDS: Montelukast 10 MG Tab PO SCH (07:24)
[2017-05-09] MEDS: Digoxin 125 MCG Tab PO SCH (07:24)
[2017-05-09] MEDS: Furosemide 40 MG Tab PO SCH (07:24)
[2017-05-09] MEDS: Carvedilol 12.5 MG Tab PO SCH (07:24)
[2017-05-09] MEDS: Lisinopril 5 MG Tab PO SCH (07:24)
[2017-05-09] MEDS: Aspirin 81 MG Tab.EC PO SCH (07:24)
[2017-05-09] MEDS: Spironolactone 25 MG Tab PO SCH (07:24)
[2017-05-09] MEDS: Insulin Detemir 100 Units/ML 3 ML Pen SUBCUT SCH (07:28)
[2017-05-09] MEDS: Insulin Aspart 100 Units/ML 3 ML Pen SUBCUT SCH (07:31)
[2017-05-09] MEDS ORDERED: Furosemide 40 MG Tab PO ONE (08:18)
[2017-05-09 08:20] VITALS: BP 139/72
--- NOTE | 2017-05-09 08:29 | PCM.DCSUM1 ---
Discharge Summary - Discharge Data Discharge Date: 05/09/17 Discharge Disposition: DC/Tfer W/I Hosp To Swing 61 Condition: Good - Discharge Diagnosis/Problem(s) (1) Pneumonia SNOMED Code(s): 575174171 ICD Code: J18.9 - PNEUMONIA, UNSPECIFIED ORGANISM Status: Acute Priority : High Qualifiers: Pneumonia type: due to methicillin-resistant Staphylococcus aureus (MRSA) Laterality: right Lung location: upper lobe of lung Qualified Code(s): J15.212 - Pneumonia due to Methicillin resistant Staphylococcus aureus (2) Congestive heart failure (CHF) SNOMED Code(s): 82173389 ICD Code: I50.9 - HEART FAILURE, UNSPECIFIED Status: Chronic Qualifiers: Congestive heart failure type: systolic Congestive heart failure chronicity : acute on chronic Qualified Code(s): I50.23 - Acute on chronic systolic ( congestive) heart failure (3) HTN, Benign hypertension SNOMED Code(s): 55750312 ICD Code: I10 - ESSENTIAL (PRIMARY) HYPERTENSION Status: Chronic Priority : Medium (4) Hyperlipidemia SNOMED Code(s): 99145674 ICD Code: E78.5 - HYPERLIPIDEMIA, UNSPECIFIED Status: Chronic Priority: Low (5) Palliative care patient SNOMED Code(s): 329120390 ICD Code: Z51.5 - ENCOUNTER FOR PALLIATIVE CARE Status: Chronic - Patient Summary/Data Hospital Course: Patient was admitted to the hospital on 05/05/2017 from the clinic with RUL pneumonia. At time of admission patient's WBCs were 26.2. Throughout hospital stay, WBCs have been trending down. Today WBCs are 12.3. CRP has also trended down. CRP was highest at 16.2. Today CRP is 1.9. Patient continues to have expiratory wheezes and crackles in bilateral lungs. He continues to have dyspnea with exertion. He does complain of productive cough. He does feel that he is improving, but still does not feel back to baseline. Today, he is on room air at rest. Nursing reports he desats to the upper 80's with activity and gets very winded with activity. Patient reports he does still feel fatigued. We will transfer him to swing bed for continued IV antibiotics and respiratory monitoring. Will increase morning dose of lasix as patient has CHF with an EF of 35%. Will also stop IVF. - Patient Instructions Diet: Diabetic Diet Activity: As Tolerated - Discharge Plan Home Medications: Home Meds Ascorbate Calcium [Vitamin C] 500 mg PO DAILY 12/20/13 [History] Aspirin [Halfprin] 81 mg PO DAILY 12/20/13 [History] Calcium Carb/Mag Ox/Zinc Gluc [Hmlcoze-Jigaehhvd-Glyy] 2 each PO DAILY 12/20/13 [History] Carvedilol 25 mg PO BID 12/20/13 [History] Cholecalciferol (Vitamin D3) [Vitamin D3] 2,000 unit PO BEDTIME 12/20/13 [ History] Digoxin 125 mcg PO DAILY 12/20/13 [History] Folic Acid 0.4 mg PO BEDTIME 12/20/13 [History] Psyllium Seed/Aspartame [Metamucil Powder] 1 tbsp PO DAILY 12/20/13 [History] Zolpidem [Ambien] 1 - 2 tab PO BEDTIME PRN 12/20/13 [History] Vitamin B Complex [B Complex] 1 tab PO DAILY 11/22/15 [History] Simvastatin [Zocor] 20 mg PO BEDTIME tablet 11/25/15 [Rx] Insulin Detemir [Levemir] 12 units SQ WITHBREAKFAST 08/27/16 [History] Furosemide 40 mg PO 1200 08/28/16 [History] Furosemide 40 mg PO WITHBREAKFAST 08/28/16 [History] Insulin Detemir [Levemir Flextouch] 8 unit SUBCUT BEDTIME 08/28/16 [History] Spironolactone [Aldactone] 25 mg PO DAILY 12/30/16 [History] Montelukast Sodium 10 mg PO DAILY 05/05/17 [History] Warfarin [Coumadin] 2 mg PO DAILY 05/05/17 [History] Patient Handouts: Pneumonitis, Community-Acquired Pneumonia, Adult - Discharge Summary/Plan Comment Discharge Summary/Plan Comment: Transfer to swing bed for continued IV antibiotics and oxygen needs Patients lung sounds continue to have wheezes and crackles. Patient continues to desat to upper 80's and get short of breath with activity. Continue to monitor oxygen saturations. Would like to keep him for continued IV antibiotics given MRSA infection. Continue IV vancomycin. Pharmacy to dose based on creatinine clearance. Will increase lasix dose to 80 in am and 40 at noon given underlying CHF with EF of 35%. Discontinue IVF. Hold coumadin today given INR of 3.26 Stop telemetry - General Info Date of Service: 05/09/17 Admission Dx/Problem (Free Text: RUL and RML Pneumonia Subjective Update: Patient reports he still does not feel back to baseline. He reports continued cough, productive of a small amount of sputum. Denies any fever or chills. Denies any shortness of breath at rest. Nursing reports he gets very short of breath with activity. He is currently on RA. Functional Status: Reports: Pain Controlled, Tolerating Diet, Ambulating, Urinating. Denies: New Symptoms - Review of Systems General: Reports: Weakness, Fatigue. Denies: Fever, Chills HEENT: Reports: No Symptoms Pulmonary: Reports: Cough, Sputum. Denies: Shortness of Breath Cardiovascular: Reports: Dyspnea on Exertion. Denies: Chest Pain, Palpitations , Lightheadedness Gastrointestinal: Reports: No Symptoms Genitourinary: Reports: No Symptoms Musculoskeletal: Reports: No Symptoms Skin: Reports: No Symptoms Neurological: Reports: No Symptoms Psychiatric: Reports: No Symptoms - Patient Data Vitals - Most Recent: Last Vital Signs Temp 97.4 F 05/09/17 08:00 Pulse 70 05/09/17 08:00 Resp 18 05/09/17 08:00 BP 139/72 05/09/17 08:00 Pulse Ox 94 L 05/09/17 08:00 Weight - Most Recent: 170 lb I&O - Last 24 hours: Intake & Output 05/08/17 05/09/17 05/09/17 22:59 06:59 14:59 Intake Total 184 Balance 184 Lab Results - Last 24 hrs: Laboratory Results - last 24 hr 05/08/17 05/08/17 05/08/17 Range/Units 11:57 17:19 19:57 WBC (5.0-10.0) 10^3/uL RBC (4.50-6.00) 10^6/uL Hgb (14.0-18.0) g/dL Hct (40.0-54.0) % MCV (82.0-94.0) fL MCH (27.0-32.0) pg MCHC (33.0-38.0) g/dL RDW Coeff of Brooke (11.0-15.0) % Plt Count (150-400) 10^3/uL Neut % (Auto) (35-85) % Lymph % (Auto) (10-55) % [place] % (Auto) (0-16) % Eos % (Auto) (0-5) % Baso % (Auto) (0-3) % Neut # (Auto) (1.80-7.00) 10^3/uL Lymph # (Auto) (1.00-4.80) 10^3/uL [place] # (Auto) (0.00-0.80) 10^3/uL Eos # (Auto) (0.00-0.45) 10^3/uL Baso # (Auto) 10^3/uL PT (9.7-12.3) SEC INR (0.92-1.18) Sodium (136-145) mEq/L Potassium (3.5-5.0) mEq/L Chloride (98-106) mEq/L Carbon Dioxide (21-32) mmol/L BUN (7-18) mg/dL Creatinine (0.7-1.3) mg/dL Est Cr Clr Drug Dosing mL/min Estimated GFR (MDRD) (>=60) mL/min Glucose (75-99) mg/dL POC Glucose 226 H 129 H 226 H (75-105) mg/dl Calcium (8.4-10.1) mg/dL C-Reactive Protein (0.2-0.8) mg/dL 05/09/17 05/09/17 05/09/17 Range/Units 07:00 07:00 07:00 WBC 12.3 H (5.0-10.0) 10^3/uL RBC 4.11 L (4.50-6.00) 10^6/uL Hgb 13.0 L (14.0-18.0) g/dL Hct 39.5 L (40.0-54.0) % MCV 96.1 H (82.0-94.0) fL MCH 31.6 (27.0-32.0) pg MCHC 32.9 L (33.0-38.0) g/dL RDW Coeff of Brooke 14.5 (11.0-15.0) % Plt Count 252 (150-400) 10^3/uL Neut % (Auto) 83.5 (35-85) % Lymph % (Auto) 9.2 L (10-55) % [place] % (Auto) 7.3 (0-16) % Eos % (Auto) 0 (0-5) % Baso % (Auto) 0 (0-3) % Neut # (Auto) 10.22 H (1.80-7.00) 10^3/uL Lymph # (Auto) 1.13 (1.00-4.80) 10^3/uL [place] # (Auto) 0.90 H (0.00-0.80) 10^3/uL Eos # (Auto) 0.00 (0.00-0.45) 10^3/uL Baso # (Auto) 0.00 10^3/uL PT 36.5 H (9.7-12.3) SEC INR 3.26 H (0.92-1.18) Sodium 142 (136-145) mEq/L Potassium 4.4 (3.5-5.0) mEq/L Chloride 107 H (98-106) mEq/L Carbon Dioxide 27 (21-32) mmol/L BUN 40 H (7-18) mg/dL Creatinine 1.5 H (0.7-1.3) mg/dL Est Cr Clr Drug Dosing 32.49 mL/min Estimated GFR (MDRD) 44 L (>=60) mL/min Glucose 152 H (75-99) mg/dL POC Glucose (75-105) mg/dl Calcium 8.2 L (8.4-10.1) mg/dL C-Reactive Protein 1.9 H (0.2-0.8) mg/dL 05/09/17 Range/Units 07:28 WBC (5.0-10.0) 10^3/uL RBC (4.50-6.00) 10^6/uL Hgb (14.0-18.0) g/dL Hct (40.0-54.0) % MCV (82.0-94.0) fL MCH (27.0-32.0) pg MCHC (33.0-38.0) g/dL RDW Coeff of Brooke (11.0-15.0) % Plt Count (150-400) 10^3/uL Neut % (Auto) (35-85) % Lymph % (Auto) (10-55) % [place] % (Auto) (0-16) % Eos % (Auto) (0-5) % Baso % (Auto) (0-3) % Neut # (Auto) (1.80-7.00) 10^3/uL Lymph # (Auto) (1.00-4.80) 10^3/uL [place] # (Auto) (0.00-0.80) 10^3/uL Eos # (Auto) (0.00-0.45) 10^3/uL Baso # (Auto) 10^3/uL PT (9.7-12.3) SEC INR (0.92-1.18) Sodium (136-145) mEq/L Potassium (3.5-5.0) mEq/L Chloride (98-106) mEq/L Carbon Dioxide (21-32) mmol/L BUN (7-18) mg/dL Creatinine (0.7-1.3) mg/dL Est Cr Clr Drug Dosing mL/min Estimated GFR (MDRD) (>=60) mL/min Glucose (75-99) mg/dL POC Glucose 129 H (75-105) mg/dl Calcium (8.4-10.1) mg/dL C-Reactive Protein (0.2-0.8) mg/dL Med Orders - Current: Current Medications Acetaminophen (Tylenol) 650 mg PO Q4H PRN PRN Reason: Pain (Mild 1-3)/fever Last Admin: 05/05/17 14:05 Dose: 650 mg Albuterol/Ipratropium (Duoneb 3.0-0.5 Mg/3 Ml) 3 ml NEB QID [facility] Last Admin: 05/09/17 07:23 Dose: 3 ml Aspirin (Halfprin) 81 mg PO DAILY [facility] Last Admin: 05/09/17 07:24 Dose: 81 mg Carvedilol (Coreg) 25 mg PO BID [facility] Last Admin: 05/09/17 07:24 Dose: 25 mg Cholecalciferol (Vitamin D3) 2,000 units PO BEDTIME [facility] Last Admin: 05/08/17 19:53 Dose: 2,000 units Digoxin (Lanoxin) 125 mcg PO DAILY [facility] Last Admin: 05/09/17 07:24 Dose: 125 mcg Folic Acid (Folic Acid) 0.5 mg PO BEDTIME [facility] Last Admin: 05/08/17 19:52 Dose: 0.5 mg Furosemide (Lasix) 40 mg PO 1200 [facility] Last Admin: 05/08/17 11:51 Dose: 40 mg Furosemide (Lasix) 80 mg PO DAILY [facility] Furosemide (Lasix) 40 mg PO ONETIME ONE Stop: 05/09/17 08:19 Vancomycin HCl 1 gm/ Sodium (Chloride) 250 mls @ 167 mls/hr IV Q24H [facility] Last Admin: 05/09/17 07:27 Dose: 167 mls/hr Insulin Aspart (Novolog) 0 unit SUBCUT WITHMEALSANDBED [facility] PRN Reason: Protocol Last Admin: 05/09/17 07:31 Dose: Not Given Insulin Detemir (Levemir) 8 unit SUBCUT BEDTIME [facility] Last Admin: 05/08/17 20:07 Dose: 8 units Insulin Detemir (Levemir) 12 unit SUBCUT WITHBREAKFAST [facility] Last Admin: 05/09/17 07:28 Dose: 12 units Lisinopril (Prinivil) 5 mg PO DAILY [facility] Last Admin: 05/09/17 07:24 Dose: 5 mg Magnesium Hydroxide (Milk Of Magnesia) 30 ml PO Q12H PRN PRN Reason: Constipation Methylprednisolone Sodium Succinate (Solu-Medrol) 62.5 mg IVPUSH Q24H [facility] Last Admin: 05/08/17 12:20 Dose: 62.5 mg Montelukast Sodium (Singulair) 10 mg PO DAILY [facility] Last Admin: 05/09/17 07:24 Dose: 10 mg Ondansetron HCl (Zofran) 4 mg IV Q6H PRN PRN Reason: Nausea/Vomiting Psyllium Husk (Metamucil Sugar Free) 1 pkt PO DAILY [facility] Last Admin: 05/09/17 07:23 Dose: 1 pkt Simvastatin (Zocor) 20 mg PO BEDTIME [facility] Last Admin: 05/08/17 19:53 Dose: 20 mg Sodium Chloride (Saline Flush) 10 ml FLUSH ASDIRECTED PRN PRN Reason: Keep Vein Open Spironolactone (Aldactone) 25 mg PO DAILY [facility] Last Admin: 05/09/17 07:24 Dose: 25 mg Temazepam (Restoril) 15 mg PO BEDTIME PRN PRN Reason: Sleep Trimethoprim/Sulfamethoxazole (Septra Ds) 1 tab PO BID [facility] Last Admin: 12/22/17 07:24 Dose: 1 tab Vancomycin HCl (Pharmacy To Dose - Vancomycin) 1 dose .XX ASDIRECTED [facility] Warfarin Sodium (Coumadin) 2 mg PO DAILY [facility] Last Admin: 05/09/17 07:24 Dose: 2 mg Zolpidem Tartrate (Ambien) 5 mg PO BEDTIME PRN PRN Reason: Insomnia Last Admin: 05/08/17 19:53 Dose: 5 mg Discontinued Medications Ceftriaxone Sodium (Rocephin) 1 gm IVPUSH Q24H [facility] Last Admin: 05/07/17 13:00 Dose: 1 gm Furosemide (Lasix) 40 mg PO WITHBREAKFAST [facility] Last Admin: 05/09/17 07:24 Dose: 40 mg Azithromycin 500 mg/ Sodium (Chloride) 250 mls @ 250 mls/hr IV Q24H [facility] Last Admin: 05/07/17 13:00 Dose: 250 mls/hr Lactated Ringer's (Ringers, Lactated) 1,000 mls @ 75 mls/hr IV ASDIRECTED [facility] Last Admin: 05/08/17 19:53 Dose: 75 mls/hr - Exam Quality Assessment: Denies: Supplemental Oxygen General: Reports: Alert, Oriented, No Acute Distress Neck: Reports: Supple Lungs: Reports: Crackles, Wheezing Cardiovascular: Reports: Regular Rate, Regular Rhythm, No Murmurs GI/Abdominal Exam: Normal Bowel Sounds, Soft, Non-Tender, No Organomegaly, No Distention, No Abnormal Bruit, No Mass, Pelvis Stable Extremities: Normal Inspection, Normal Range of Motion, Non-Tender, No Pedal Edema, Normal Capillary Refill Skin: Reports: Warm, Dry, Intact Neurological: Reports: No New Focal Deficit Psy/Mental Status: Reports: Alert, Normal Affect, Normal Mood *Q Meaningful Use (DIS) - VTE *Q VTE Criteria *Q: - Stroke *Q Stroke Criteria *Q: - AMI *Q AMI Criteria *Q:
[2017-05-10] MEDS ORDERED: Furosemide 80 MG Tab PO SCH (08:00)
== END 2017-05-09 08:34 | disposition swing bed (61) | DRG 177 ==
LOC: UNDOADMIN 10:53 → CC.MS 10:53
PROVIDERS: ADMIT General Practice; ATTEND General Practice
DX: J15.212 Pneumonia due to Methicillin resistant Staphylococcus aureus (principal); I50.23 Acute on chronic systolic (congestive) heart failure; I11.0 Hypertensive heart disease with heart failure; E11.9 Type 2 diabetes mellitus without complications; Z85.46 Personal history of malignant neoplasm of prostate; E78.5 Hyperlipidemia, unspecified; M19.90 Unspecified osteoarthritis, unspecified site; I48.91 Unspecified atrial fibrillation; Z79.82 Long term (current) use of aspirin; Z79.01 Long term (current) use of anticoagulants; Z88.1 Allergy status to other antibiotic agents; Z51.5 Encounter for palliative care; Z79.4 Long term (current) use of insulin
CPT/HCPCS: 36415; 71020; 80048; 80053; 80162; 81001; 82962; 83735; 83880; 84443; 85025; 85610; 86140; 87070; 87077; 87186; 87205; 93005; 94640; A9270-GY; J0456; J0696; J1815-GY; J2930; J3370; J7050; J7120

== ENCOUNTER 2019-05-18 11:25 | Inpatient (IN) | payer MEDICARE, BC ==
[2019-05-18] MEDS ORDERED: Albuterol/Ipratropium 3.0-0.5 MG/3 ML Neb Soln ONE (11:31)
[2019-05-18] MEDS ORDERED: Albuterol/Ipratropium 3.0-0.5 MG/3 ML Neb Soln NEB ONE (11:47)
[2019-05-18] MEDS ORDERED: Ondansetron 4 MG Tab.DIS PO PRN (14:11)
[2019-05-18] MEDS ORDERED: Sodium Chloride 0.9% 10 ML Syringe FLUSH PRN (14:11)
[2019-05-18] MEDS ORDERED: Temazepam 15 MG Cap PO PRN (14:11)
[2019-05-18] MEDS ORDERED: Ondansetron 4 MG/2 ML SDV IV PRN (14:11)
[2019-05-18] MEDS ORDERED: Acetaminophen 325 MG Tab PO PRN (14:11)
[2019-05-18] MEDS ORDERED: Furosemide 20 MG Tab PO SCH (14:45)
--- NOTE | 2019-05-18 15:19 | EDM.PDOC ---
ED HPI GENERAL MEDICAL PROBLEM - General Chief Complaint: Respiratory Problem Stated Complaint: cough Time Seen by Provider: 05/18/19 11:40 Source of Information: Reports: Patient, Family History Limitations: Reports: No Limitations - History of Present Illness INITIAL COMMENTS - FREE TEXT/NARRATIVE: Patient presents to ER with complaints of increased shortness of breath for the last few days. He has noted increased cough with sputum production. Has been chilled at times, denies any fevers. He notes his chest has been wheezy and rattly. Daughter states he has been more weak, not eating or drinking as much as his norm. Patient states he got his second shingles vaccine last week and wonders if that led to this. Hypoxic on arrival, oxygen sats 88% on room air. Onset: Gradual Duration: Day(s):, Getting Worse Location: Reports: Chest Quality: Reports: Ache Improves with: Reports: Rest Worsens with: Reports: Movement Associated Symptoms: Reports: Cough, cough w sputum, Fever/Chills, Shortness of Breath, Weakness. Denies: Confusion, Chest Pain, Headaches, Loss of Appetite, Nausea/Vomiting - Related Data Allergies Allergy/AdvReac Type Severity Reaction Status Date / Time amoxicillin Allergy Abdominal Verified 05/18/19 12:17 Pain Home Meds: Home Meds Ascorbate Calcium [Vitamin C] 500 mg PO DAILY 12/20/13 [History] Calcium Carb/Mag Ox/Zinc Gluc [Jxmsatv-Hsxqkcapq-Neah] 2 each PO DAILY 12/20/13 [History] Cholecalciferol (Vitamin D3) [Vitamin D3] 2,000 unit PO BEDTIME 12/20/13 [ History] Folic Acid 0.4 mg PO BEDTIME 12/20/13 [History] Psyllium Seed/Aspartame [Metamucil Powder] 1 tbsp PO DAILY 12/20/13 [History] Zolpidem [Ambien] 2 tab PO BEDTIME PRN 12/20/13 [History] carvediloL [Carvedilol] 12.5 mg PO BID 12/20/13 [History] Vitamin B Complex [B Complex] 1 tab PO DAILY 11/22/15 [History] Simvastatin [Zocor] 20 mg PO BEDTIME tablet 11/25/15 [Rx] Insulin Detemir [Levemir] 8 units SQ WITHBREAKFAST 08/27/16 [History] Furosemide 20 mg PO 1200 08/28/16 [History] Furosemide 20 mg PO WITHBREAKFAST 08/28/16 [History] Insulin Detemir [Levemir Flextouch] 8 unit SUBCUT BEDTIME 08/28/16 [History] Spironolactone [Aldactone] 12.5 mg PO 1200 12/30/16 [History] Montelukast Sodium 10 mg PO DAILY 05/05/17 [History] Warfarin [Coumadin] 1 mg PO SUTUWETHFRSA 05/05/17 [History] Albuterol/Ipratropium [DuoNeb 3.0-0.5 MG/3 ML] 3 ml NEB DAILY 05/18/19 [History] Warfarin [Coumadin] 2 mg PO MO 05/18/19 [History] allopurinoL [Zyloprim] 100 mg PO 1200 05/18/19 [History] Past Medical History HEENT History: Reports: Hard of Hearing, Impaired Vision Other HEENT History: wears bilateral hearing aides Cardiovascular History: Reports: Bypass, Heart Failure, High Cholesterol, Hypertension, [place], Pacemaker, SOB on Exertion Other Cardiovascular History: 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 Dermatologic History: Reports: Cellulitis Other Dermatologic History: buttock rash at times, skin cancerous cells removed to right side of face. - Infectious Disease History Infectious Disease History: Reports: MRSA - Past Surgical History Cardiovascular Surgical History: Reports: Pacer GI Surgical History: Reports: Appendectomy, Colonoscopy Male Surgical History: Reports: Prostatectomy Social & Family History - Family History Family Medical History: Noncontributory - Tobacco Use Smoking Status *Q: Never Smoker - Caffeine Use Caffeine Use: Reports: None - Recreational Drug Use Recreational Drug Use: No ED ROS GENERAL - Review of Systems Review Of Systems: See Below Constitutional: Reports: Fever, Chills, Malaise, Weakness, Fatigue, Decreased Appetite HEENT: Reports: Rhinitis. Denies: Ear Pain, Throat Pain, Vertigo Respiratory: Reports: Shortness of Breath, Wheezing, Cough, Sputum Cardiovascular: Denies: Chest Pain, Edema, Lightheadedness Endocrine: Reports: Fatigue GI/Abdominal: Denies: Abdominal Pain, Nausea, Vomiting : Reports: No Symptoms Musculoskeletal: Reports: No Symptoms Skin: Reports: No Symptoms Neurological: Reports: Weakness. Denies: Dizziness, Headache ED EXAM, GENERAL - Physical Exam Exam: See Below Exam Limited By: No Limitations General Appearance: Alert, WD/WN, Mild Distress Ears: Normal External Exam, Normal TMs Nose: Normal Inspection, Normal Mucosa, No Blood Throat/Mouth: Normal Inspection, Normal Oropharynx Head: Normocephalic Neck: Normal Inspection, Supple, Non-Tender Respiratory/Chest: Respiratory Distress, Rhonchi, Wheezing Cardiovascular: Regular Rate, Rhythm GI/Abdominal: Normal Bowel Sounds, Soft, Non-Tender Extremities: Normal Inspection, No Pedal Edema Neurological: Alert, Oriented Skin Exam: Warm, Dry Course - Vital Signs Last Recorded V/S: Last Vital Signs Temp 97.8 F 05/18/19 11:30 Pulse 100 05/18/19 11:30 Resp 20 05/18/19 11:30 BP 117/61 05/18/19 11:30 Pulse Ox 90 L 05/18/19 12:15 - Orders/Labs/Meds Orders: Active Orders 24 hr Category Date Time Status RT Aerosol Therapy [RC] ASDIRECTED Care 05/18/19 11:48 Active Chest 2V [CR] Stat Exams 05/18/19 11:48 Taken Medication Orders Acetaminophen (Tylenol) 650 mg PO Q4H PRN PRN Reason: Pain (Mild 1-3)/fever Albuterol (Proventil Neb Soln) 2.5 mg NEB QIDRT [facility] Allopurinol (Zyloprim) 100 mg PO DAILY@1200 [facility] Calcium/Magnesium/Zinc (Calcium & Magnesium Plus Zinc) 2 tab PO DAILY [facility] Carvedilol (Coreg) 12.5 mg PO BID [facility] Ceftriaxone Sodium (Rocephin) 1 gm IVPUSH Q24H [facility] Cholecalciferol (Vitamin D3) 50 mcg PO BEDTIME JADEN Folic Acid (Folic Acid) 0.5 mg PO BEDTIME JADEN Furosemide (Lasix) 20 mg PO BID@0800,1200 [facility] Azithromycin 500 mg/ Sodium (Chloride) 250 mls @ 250 mls/hr IV Q24H [facility] Insulin Glargine (Lantus Solostar) 8 units SUBCUT BID [facility] Insulin Human Lispro (Humalog) 0 unit SUBCUT WITHMEALSANDBED [facility]; Protocol Methylprednisolone Sodium Succinate (Solu-Medrol) 62.5 mg IVPUSH Q12H [facility] Montelukast Sodium (Singulair) 10 mg PO DAILY [facility] Ondansetron HCl (Zofran Odt) 4 mg PO Q4H PRN PRN Reason: nausea, able to take PO Ondansetron HCl (Zofran) 4 mg IV Q4H PRN PRN Reason: Nausea/Vomiting Psyllium Husk (Metamucil Sugar Free) 1 pkt PO DAILY [facility] Simvastatin (Zocor) 20 mg PO BEDTIME [facility] Sodium Chloride (Saline Flush) 10 ml FLUSH ASDIRECTED PRN PRN Reason: Keep Vein Open Spironolactone (Aldactone) 12.5 mg PO DAILY@1200 [facility] Temazepam (Restoril) 15 mg PO BEDTIME PRN PRN Reason: Sleep Vitamin B Complex (Vitamin B Complex) 1 each PO DAILY [facility] Warfarin Sodium (Coumadin) 1 mg PO SuTuWeThFrSa@1200 [facility] Warfarin Sodium (Coumadin) 2 mg PO Mo@1200 [facility] Labs: Laboratory Tests 05/18/19 05/18/19 05/18/19 Range/Units 11:47 11:47 11:47 WBC 16.9 H (5.0-10.0) 10^3/uL RBC 4.34 L (4.50-6.00) 10^6/uL Hgb 14.2 (14.0-18.0) g/dL Hct 42.6 (40.0-54.0) % MCV 98.2 H (82.0-94.0) fL MCH 32.7 H (27.0-32.0) pg MCHC 33.3 (33.0-38.0) g/dL RDW Coeff of Brooke 14.3 (11.0-15.0) % Plt Count 175 (150-400) 10^3/uL Neut % (Auto) 86.9 H (35-85) % Lymph % (Auto) 7.9 L (10-55) % [place] % (Auto) 5.1 (0-16) % Eos % (Auto) 0 (0-5) % Baso % (Auto) 0.1 (0-3) % Neut # (Auto) 14.65 H (1.80-7.00) 10^3/uL Lymph # (Auto) 1.33 (1.00-4.80) 10^3/uL [place] # (Auto) 0.86 H (0.00-0.80) 10^3/uL Eos # (Auto) 0.00 (0.00-0.45) 10^3/uL Baso # (Auto) 0.01 10^3/uL PT 24.4 H (9.7-12.3) SEC INR 2.49 H (0.92-1.18) D-Dimer, Quantitative 0.46 (0.00-0.50) Sodium 139 (136-145) mEq/L Potassium 4.7 (3.5-5.0) mEq/L Chloride 103 (98-106) mEq/L Carbon Dioxide 28 (21-32) mmol/L BUN 64 H D (7-18) mg/dL Creatinine 2.1 H (0.7-1.3) mg/dL Est Cr Clr Drug Dosing 22.36 mL/min Estimated GFR (MDRD) 30 L (>=60) mL/min Glucose 131 H D (75-99) mg/dL Calcium 9.3 (8.4-10.1) mg/dL Total Bilirubin 1.6 H (0.0-1.0) mg/dL AST 44 H (15-37) U/L ALT 41 (12-78) U/L Alkaline Phosphatase 81 (46-116) U/L C-Reactive Protein 55.7 H (0.2-0.8) mg/dL Total Protein 7.1 (6.4-8.2) g/dL Albumin 2.9 L (3.4-5.0) g/dL Meds: Medications Generic Name Dose Route Start Last Admin Trade Name Freq PRN Reason Stop Dose Admin Acetaminophen 650 mg 05/18/19 14:11 Tylenol PO Q4H PRN Pain (Mild 1-3)/fever Albuterol 2.5 mg 05/18/19 16:00 Proventil Neb Soln NEB QIDRT JADEN Allopurinol 100 mg 05/18/19 14:45 Zyloprim PO DAILY@1200 [facility] Calcium/Magnesium/Zinc 2 tab 05/19/19 08:00 Calcium & Magnesium Plus Zinc PO DAILY [facility] Carvedilol 12.5 mg 05/18/19 20:00 Coreg PO BID [facility] Ceftriaxone Sodium 1 gm 05/18/19 14:30 Rocephin IVPUSH Q24H [facility] Cholecalciferol 50 mcg 05/18/19 20:00 Vitamin D3 PO BEDTIME [facility] Folic Acid 0.5 mg 05/18/19 20:00 Folic Acid PO BEDTIME [facility] Furosemide 20 mg 05/18/19 14:45 Lasix PO BID@0800,1200 [facility] Azithromycin 500 mg/ Sodium 250 mls @ 250 mls/hr 05/18/19 14:30 Chloride IV Q24H [facility] Insulin Glargine 8 units 05/18/19 20:00 Lantus Solostar SUBCUT BID [facility] Insulin Human Lispro 0 unit 05/18/19 17:30 Humalog SUBCUT WITHMEALSANDBED [facility] Protocol Methylprednisolone Sodium Succinate 62.5 mg 05/18/19 14:30 Solu-Medrol IVPUSH Q12H [facility] Montelukast Sodium 10 mg 05/19/19 08:00 Singulair PO DAILY [facility] Ondansetron HCl 4 mg 05/18/19 14:11 Zofran Odt PO Q4H PRN nausea, able to take PO Ondansetron HCl 4 mg 05/18/19 14:11 Zofran IV Q4H PRN Nausea/Vomiting Psyllium Husk 1 pkt 05/19/19 08:00 Metamucil Sugar Free PO DAILY [facility] Simvastatin 20 mg 05/18/19 20:00 Zocor PO BEDTIME [facility] Sodium Chloride 10 ml 05/18/19 14:11 Saline Flush FLUSH ASDIRECTED PRN Keep Vein Open Spironolactone 12.5 mg 05/18/19 14:45 Aldactone PO DAILY@1200 [facility] Temazepam 15 mg 05/18/19 14:11 Restoril PO BEDTIME PRN Sleep Vitamin B Complex 1 each 05/19/19 08:00 Vitamin B Complex PO DAILY [facility] Warfarin Sodium 1 mg 05/18/19 14:45 Coumadin PO SuTuWeThFrSa@1200 [facility] Warfarin Sodium 2 mg 05/24/19 12:00 Coumadin PO Mo@1200 [facility] Discontinued Medications Generic Name Dose Route Start Last Admin Trade Name Freq PRN Reason Stop Dose Admin Albuterol/Ipratropium 3 ml 05/18/19 11:47 05/18/19 11:50 Duoneb 3.0-0.5 Mg/3 Ml NEB 05/18/19 11:48 3 ml ONETIME ONE Administration Albuterol/Ipratropium Confirm 05/18/19 11:31 05/18/19 12:37 Duoneb 3.0-0.5 Mg/3 Ml Administered 05/18/19 11:32 Not Given Dose 3 ml .ROUTE .STK-MED ONE Furosemide 20 mg 05/19/19 12:00 Lasix PO 1200 [facility] Non-Formulary Medication 8 unit 05/18/19 20:00 Insulin Detemir [Levemir Flextouch] SUBCUT BEDTIME [facility] - Re-Assessments/Exams Free Text/Narrative Re-Assessment/Exam: 05/18/19 Labs noted, elevated WBC at 16.9, CRP of 55.7. BUN 64, creatinine 2.1, baseline 1.5. Liver enzymes mildly elevated. INR stable at 2.49. chest xray shows right mid lobe infiltrate. Will admit to acute inpatient, start nebs, IV antibiotics and steroids. Departure - Departure Time of Disposition: 14:10 Disposition: Admitted As Inpatient 67 Condition: Fair Clinical Impression: Respiratory distress Pneumonia Qualifiers: Pneumonia type: due to methicillin-resistant Staphylococcus aureus (MRSA) Laterality: right Lung location: middle lobe of lung Qualified Code(s): J15.212 - Pneumonia due to Methicillin resistant Staphylococcus aureus - Discharge Information *PRESCRIPTION DRUG MONITORING PROGRAM REVIEWED*: No *COPY OF PRESCRIPTION DRUG MONITORING REPORT IN PATIENT ADRIENNE: No Sepsis Event Note - Evaluation Sepsis Screening Result: No Definite Risk - Focused Exam Vital Signs: Vital Signs Temp Pulse Resp BP Pulse Ox 05/18/19 12:15 90 L 05/18/19 11:30 97.8 F 100 20 117/61 88 L Date Exam was Performed: 05/18/19 Time Exam was Performed: 14:59 - Problem List & Annotations (1) Diabetes mellitus SNOMED Code(s): 67722227 Code(s): E11.9 - TYPE 2 DIABETES MELLITUS WITHOUT COMPLICATIONS Status: Acute Priority: Medium Current Visit: Yes Qualifiers: Diabetes mellitus type: type 2 Diabetes mellitus mcc insulin use: with mcc use Diabetes mellitus complication status: without complication Qualified Code(s): E11.9 - Type 2 diabetes mellitus without complications; Z79.4 - buttermilk drier operator (current) use of insulin (2) Pneumonia SNOMED Code(s): 645863861 Code(s): J18.9 - PNEUMONIA, UNSPECIFIED ORGANISM Status: Acute Priority: High Current Visit: Yes Qualifiers: Pneumonia type: due to other aerobic Gram-negative bacteria Laterality: right Lung location: middle lobe of lung Qualified Code(s): J15.6 - Pneumonia due to other Gram-negative bacteria (3) Palliative care patient SNOMED Code(s): 947602288 Code(s): Z51.5 - ENCOUNTER FOR PALLIATIVE CARE Status: Chronic Priority: High Current Visit: Yes (4) General weakness SNOMED Code(s): 06931614 Code(s): R53.1 - WEAKNESS Status: Acute Priority: High Current Visit: Yes (5) Respiratory distress SNOMED Code(s): 186541996 Code(s): R06.03 - ACUTE RESPIRATORY DISTRESS Status: Acute Priority: High Current Visit: Yes - Problem List Review Problem List Initiated/Reviewed/Updated: Yes - My Orders Last 24 Hours: My Active Orders 05/18/19 11:48 RT Aerosol Therapy [RC] ASDIRECTED Chest 2V [CR] Stat - Assessment/Plan Admission H&P: Please use this note as an admission H&P Last 24 Hours: My Active Orders 05/18/19 11:48 RT Aerosol Therapy [RC] ASDIRECTED Chest 2V [CR] Stat Assessment:: Pneumonia, RML Respiratory Distress Weakness Diabetes mellitus Plan: Admit inpatient to Dr. Da Silva for RML pneumonia. Will start IV antibiotics, steroids, nebs. Cover with humalog per sliding scale, blood sugars QID. Dr. Da Silva aware of admission and agrees with plan.
[2019-05-18] MEDS: Allopurinol 100 MG Tab PO SCH (16:23)
[2019-05-18] MEDS: Albuterol 0.083% 2.5 MG/3 ML Neb Soln NEB SCH ×2 (16:23→20:06)
[2019-05-18] MEDS: Spironolactone 25 MG Tab PO SCH (16:23)
[2019-05-18] MEDS: cefTRIAXone 1 GM Vial IVPUSH SCH (16:40)
[2019-05-18] MEDS: methylPREDNISolone Sodium Succinate 125 MG/2 ML SDV IVPUSH SCH (16:42)
[2019-05-18] MEDS: Azithromycin 500 MG in Sodium Chloride 0.9% 250 ML IV SCH (16:45)
[2019-05-18] MEDS: Insulin Lispro 100 Units/ML 3 ML Vial SUBCUT SCH ×2 (17:29→20:24)
[2019-05-18] MEDS ORDERED: INSULIN DETEMIR 8 UNIT SUBCUT SCH (20:00)
[2019-05-18] MEDS: Folic Acid 1 MG Tab PO SCH (20:02)
[2019-05-18] MEDS: Cholecalciferol (Vitamin D3) 25 MCG Tab PO SCH (20:02)
[2019-05-18] MEDS: Carvedilol 12.5 MG Tab PO SCH (20:02)
[2019-05-18] MEDS: Simvastatin 20 MG Tab PO SCH (20:02)
[2019-05-18] MEDS: Insulin Glargine,Human Rec. Analog 100 Units/ML 3 ML Pen SUBCUT SCH (20:25)
[2019-05-18] MEDS ORDERED: Zolpidem 5 MG Tab ONE (21:58)
[2019-05-18] MEDS ORDERED: Zolpidem 5 MG Tab PO PRN (22:30)
[2019-05-18] MEDS: Albuterol 0.083% 2.5 MG/3 ML Neb Soln NEB PRN (22:49)
[2019-05-19] MEDS ORDERED: Furosemide 40 MG/4 ML VIAL IVPUSH SCH (00:15)
[2019-05-19] MEDS: methylPREDNISolone Sodium Succinate 125 MG/2 ML SDV IVPUSH SCH ×2 (02:20→19:50)
[2019-05-19] MEDS: Albuterol 0.083% 2.5 MG/3 ML Neb Soln NEB PRN (03:15)
[2019-05-19] MEDS: Albuterol 0.083% 2.5 MG/3 ML Neb Soln NEB SCH ×4 (07:33→19:50)
[2019-05-19] MEDS: Calcium Carbonate/Magnesium Oxide/Zinc Oxide Tab PO SCH (07:34)
[2019-05-19] MEDS: Montelukast 10 MG Tab PO SCH (07:34)
[2019-05-19] MEDS: Carvedilol 12.5 MG Tab PO SCH ×2 (07:34→19:51)
[2019-05-19] MEDS: Psyllium Husk Powder Sugar Free 5.85 GM Packet PO SCH (07:34)
[2019-05-19] MEDS: Vitamin B Complex Cap PO SCH (07:35)
[2019-05-19] MEDS: Insulin Glargine,Human Rec. Analog 100 Units/ML 3 ML Pen SUBCUT SCH ×2 (07:36→20:00)
[2019-05-19] MEDS: Insulin Lispro 100 Units/ML 3 ML Vial SUBCUT SCH ×4 (07:51→20:01)
[2019-05-19] MEDS ORDERED: Furosemide 40 MG Tab PO SCH (12:00)
[2019-05-19] MEDS: Allopurinol 100 MG Tab PO SCH (13:01)
[2019-05-19] MEDS: Spironolactone 25 MG Tab PO SCH (13:01)
--- NOTE | 2019-05-19 14:00 | PCM.PN ---
- General Info Date of Service: 05/19/19 Subjective Update: Veronica's oxygen saturation did drop into the 80's last night, which I did come in and examine. We did do further work up to include influenza screen, ProBNp, which did show mild CHF. We were able to keep oxygen saturation greater than 92% . He admits to sleeping well. States today he is feeling better than yesterday. Admits he does get short of breath with exertion but this has slightly improved as well. He overall feels as if he is getting better. Functional Status: Reports: Pain Controlled - Review of Systems General: Reports: Weakness, Fatigue. Denies: Fever HEENT: Reports: No Symptoms Pulmonary: Reports: Cough, Sputum, Wheezing Cardiovascular: Denies: Chest Pain, Palpitations, Dyspnea on Exertion Gastrointestinal: Reports: No Symptoms Genitourinary: Reports: No Symptoms Neurological: Reports: No Symptoms Psychiatric: Reports: No Symptoms - Patient Data Vitals - Most Recent: Last Vital Signs Temp 97.5 F 05/19/19 11:40 Pulse 68 05/19/19 11:40 Resp 22 H 05/19/19 11:40 BP 103/58 L 05/19/19 11:40 Pulse Ox 92 L 05/19/19 11:40 Weight - Most Recent: 192 lb 12.8 oz Lab Results Last 24 Hours: Laboratory Results - last 24 hr 05/18/19 05/18/19 05/18/19 Range/Units 17:25 20:19 22:25 WBC (5.0-10.0) 10^3/uL RBC (4.50-6.00) 10^6/uL Hgb (14.0-18.0) g/dL Hct (40.0-54.0) % MCV (82.0-94.0) fL MCH (27.0-32.0) pg MCHC (33.0-38.0) g/dL RDW Coeff of Brooke (11.0-15.0) % Plt Count (150-400) 10^3/uL Neut % (Auto) (35-85) % Lymph % (Auto) (10-55) % Haakon % (Auto) (0-16) % Eos % (Auto) (0-5) % Baso % (Auto) (0-3) % Neut # (Auto) (1.80-7.00) 10^3/uL Lymph # (Auto) (1.00-4.80) 10^3/uL Haakon # (Auto) (0.00-0.80) 10^3/uL Eos # (Auto) (0.00-0.45) 10^3/uL Baso # (Auto) 10^3/uL Sodium (136-145) mEq/L Potassium (3.5-5.0) mEq/L Chloride (98-106) mEq/L Carbon Dioxide (21-32) mmol/L BUN (7-18) mg/dL Creatinine (0.7-1.3) mg/dL Est Cr Clr Drug Dosing mL/min Estimated GFR (MDRD) (>=60) mL/min Glucose (75-99) mg/dL POC Glucose 124 H 188 H (75-105) mg/dl Lactic Acid 1.0 (0.4-2.0) mmol/L Calcium (8.4-10.1) mg/dL Total Bilirubin (0.0-1.0) mg/dL AST (15-37) U/L ALT (12-78) U/L Alkaline Phosphatase (46-116) U/L Creatine Kinase (35-232) U/L Troponin I (0.00-0.06) ng/mL C-Reactive Protein (0.2-0.8) mg/dL NT-Pro-B Natriuret Pep (0-1000) pg/mL Total Protein (6.4-8.2) g/dL Albumin (3.4-5.0) g/dL 05/18/19 05/19/19 05/19/19 Range/Units 23:25 06:55 06:55 WBC 10.2 H (5.0-10.0) 10^3/uL RBC 4.09 L (4.50-6.00) 10^6/uL Hgb 13.2 L (14.0-18.0) g/dL Hct 40.7 (40.0-54.0) % MCV 99.5 H (82.0-94.0) fL MCH 32.3 H (27.0-32.0) pg MCHC 32.4 L (33.0-38.0) g/dL RDW Coeff of Brooke 14.1 (11.0-15.0) % Plt Count 180 (150-400) 10^3/uL Neut % (Auto) 88.8 H (35-85) % Lymph % (Auto) 8.8 L (10-55) % Haakon % (Auto) 2.3 (0-16) % Eos % (Auto) 0 (0-5) % Baso % (Auto) 0.1 (0-3) % Neut # (Auto) 9.05 H (1.80-7.00) 10^3/uL Lymph # (Auto) 0.90 L (1.00-4.80) 10^3/uL Haakon # (Auto) 0.23 (0.00-0.80) 10^3/uL Eos # (Auto) 0.00 (0.00-0.45) 10^3/uL Baso # (Auto) 0.01 10^3/uL Sodium 139 (136-145) mEq/L Potassium 4.5 (3.5-5.0) mEq/L Chloride 102 (98-106) mEq/L Carbon Dioxide 26 (21-32) mmol/L BUN 66 H (7-18) mg/dL Creatinine 2.0 H (0.7-1.3) mg/dL Est Cr Clr Drug Dosing 23.48 mL/min Estimated GFR (MDRD) 32 L (>=60) mL/min Glucose 162 H (75-99) mg/dL POC Glucose (75-105) mg/dl Lactic Acid (0.4-2.0) mmol/L Calcium 8.3 L (8.4-10.1) mg/dL Total Bilirubin 0.7 (0.0-1.0) mg/dL AST 32 (15-37) U/L ALT 37 (12-78) U/L Alkaline Phosphatase 71 (46-116) U/L Creatine Kinase 361 H (35-232) U/L Troponin I 0.026 (0.00-0.06) ng/mL C-Reactive Protein 25.3 H (0.2-0.8) mg/dL NT-Pro-B Natriuret Pep 3558 H (0-1000) pg/mL Total Protein 6.5 (6.4-8.2) g/dL Albumin 2.4 L (3.4-5.0) g/dL 05/19/19 Range/Units 11:34 WBC (5.0-10.0) 10^3/uL RBC (4.50-6.00) 10^6/uL Hgb (14.0-18.0) g/dL Hct (40.0-54.0) % MCV (82.0-94.0) fL MCH (27.0-32.0) pg MCHC (33.0-38.0) g/dL RDW Coeff of Brooke (11.0-15.0) % Plt Count (150-400) 10^3/uL Neut % (Auto) (35-85) % Lymph % (Auto) (10-55) % Haakon % (Auto) (0-16) % Eos % (Auto) (0-5) % Baso % (Auto) (0-3) % Neut # (Auto) (1.80-7.00) 10^3/uL Lymph # (Auto) (1.00-4.80) 10^3/uL Haakon # (Auto) (0.00-0.80) 10^3/uL Eos # (Auto) (0.00-0.45) 10^3/uL Baso # (Auto) 10^3/uL Sodium (136-145) mEq/L Potassium (3.5-5.0) mEq/L Chloride (98-106) mEq/L Carbon Dioxide (21-32) mmol/L BUN (7-18) mg/dL Creatinine (0.7-1.3) mg/dL Est Cr Clr Drug Dosing mL/min Estimated GFR (MDRD) (>=60) mL/min Glucose (75-99) mg/dL POC Glucose 251 H (75-105) mg/dl Lactic Acid (0.4-2.0) mmol/L Calcium (8.4-10.1) mg/dL Total Bilirubin (0.0-1.0) mg/dL AST (15-37) U/L ALT (12-78) U/L Alkaline Phosphatase (46-116) U/L Creatine Kinase (35-232) U/L Troponin I (0.00-0.06) ng/mL C-Reactive Protein (0.2-0.8) mg/dL NT-Pro-B Natriuret Pep (0-1000) pg/mL Total Protein (6.4-8.2) g/dL Albumin (3.4-5.0) g/dL [place] Results Last 24 Hours: Microbiology 05/18/19 15:24 Gram Stain - Final Sputum - Expectorated 05/18/19 23:25 Influenza Type A Antigen Screen - Final Nasopharyngeal Swab NEGATIVE INFLUENZA A VIRUS AG REFERENCE RANGE: NEGATIVE Influenza Type B Antigen Screen - Final NEGATIVE INFLUENZA B VIRUS AG REFERENCE RANGE: NEGATIVE Med Orders - Current: Current Medications Acetaminophen (Tylenol) 650 mg PO Q4H PRN PRN Reason: Pain (Mild 1-3)/fever Albuterol (Proventil Neb Soln) 2.5 mg NEB QIDRT [facility] Last Admin: 05/19/19 13:01 Dose: 2.5 mg Albuterol (Proventil Neb Soln) 2.5 mg NEB Q4H PRN PRN Reason: Dyspnea Last Admin: 05/19/19 03:15 Dose: 2.5 mg Allopurinol (Zyloprim) 100 mg PO DAILY@1200 [facility] Last Admin: 05/19/19 13:01 Dose: 100 mg Calcium/Magnesium/Zinc (Calcium & Magnesium Plus Zinc) 2 tab PO DAILY [facility] Last Admin: 05/19/19 07:34 Dose: 2 tab Carvedilol (Coreg) 12.5 mg PO BID [facility] Last Admin: 05/19/19 07:34 Dose: 12.5 mg Ceftriaxone Sodium (Rocephin) 1 gm IVPUSH Q24H [facility] Last Admin: 05/18/19 16:40 Dose: 1 gm Cholecalciferol (Vitamin D3) 50 mcg PO BEDTIME [facility] Last Admin: 05/18/19 20:02 Dose: 50 mcg Folic Acid (Folic Acid) 0.5 mg PO BEDTIME [facility] Last Admin: 05/18/19 20:02 Dose: 0.5 mg Furosemide (Lasix) 40 mg IVPUSH Q24H [facility] Azithromycin 500 mg/ Sodium (Chloride) 250 mls @ 250 mls/hr IV Q24H [facility] Last Admin: 05/18/19 16:45 Dose: 250 mls/hr Insulin Glargine (Lantus Solostar) 8 units SUBCUT BID [facility] Last Admin: 05/19/19 07:36 Dose: 8 units Insulin Human Lispro (Humalog) 0 unit SUBCUT WITHMEALSANDBED [facility]; Protocol Last Admin: 05/19/19 13:05 Dose: 9 units Methylprednisolone Sodium Succinate (Solu-Medrol) 62.5 mg IVPUSH Q12H [facility] Montelukast Sodium (Singulair) 10 mg PO DAILY [facility] Last Admin: 05/19/19 07:34 Dose: 10 mg Ondansetron HCl (Zofran Odt) 4 mg PO Q4H PRN PRN Reason: nausea, able to take PO Ondansetron HCl (Zofran) 4 mg IV Q4H PRN PRN Reason: Nausea/Vomiting Psyllium Husk (Metamucil Sugar Free) 1 pkt PO DAILY [facility] Last Admin: 05/19/19 07:34 Dose: 1 pkt Simvastatin (Zocor) 20 mg PO BEDTIME [facility] Last Admin: 05/18/19 20:02 Dose: 20 mg Sodium Chloride (Saline Flush) 10 ml FLUSH ASDIRECTED PRN PRN Reason: Keep Vein Open Spironolactone (Aldactone) 12.5 mg PO DAILY@1200 [facility] Last Admin: 05/19/19 13:01 Dose: 12.5 mg Vitamin B Complex (Vitamin B Complex) 1 each PO DAILY [facility] Last Admin: 05/19/19 07:35 Dose: 1 each Warfarin Sodium (Coumadin) 1 mg PO SuTuWeThFrSa@1200 [facility] Last Admin: 05/19/19 13:04 Dose: 1 mg Warfarin Sodium (Coumadin) 2 mg PO Mo@1200 [facility] Zolpidem Tartrate (Ambien) 10 mg PO BEDTIME PRN PRN Reason: Insomnia Discontinued Medications Albuterol/Ipratropium (Duoneb 3.0-0.5 Mg/3 Ml) 3 ml NEB ONETIME ONE Stop: 05/18/19 11:48 Last Admin: 05/18/19 11:50 Dose: 3 ml Albuterol/Ipratropium (Duoneb 3.0-0.5 Mg/3 Ml) Confirm Administered Dose 3 ml .ROUTE .STK-MED ONE Stop: 05/18/19 11:32 Last Admin: 05/18/19 12:37 Dose: Not Given Furosemide (Lasix) 20 mg PO 1200 [facility] Furosemide (Lasix) 20 mg PO BID@0800,1200 [facility] Last Admin: 05/18/19 16:23 Dose: 20 mg Furosemide (Lasix) 40 mg IVPUSH Q24H [facility] Last Admin: 05/19/19 02:20 Dose: 40 mg Methylprednisolone Sodium Succinate (Solu-Medrol) 62.5 mg IVPUSH Q12H [facility] Last Admin: 05/19/19 02:20 Dose: 62.5 mg Non-Formulary Medication (Insulin Detemir [Levemir Flextouch]) 8 unit SUBCUT BEDTIME [facility] Temazepam (Restoril) 15 mg PO BEDTIME PRN PRN Reason: Sleep Last Admin: 05/18/19 20:25 Dose: 15 mg Zolpidem Tartrate (Ambien) Confirm Administered Dose 5 mg .ROUTE .STK-MED ONE Stop: 05/18/19 21:59 Last Admin: 05/18/19 22:46 Dose: Not Given Zolpidem Tartrate (Ambien) 5 mg PO BEDTIME PRN PRN Reason: Insomnia - Exam Quality Assessment: Supplemental Oxygen General: Alert, Oriented, Cooperative HEENT: Mucous Membr. Moist/[place] Neck: Supple Lungs: Rhonchi, Wheezing (improved from last night) Cardiovascular: Regular Rate, Regular Rhythm GI/Abdominal Exam: Normal Bowel Sounds, Soft, No Distention, No Mass Extremities: Normal Inspection, No Pedal Edema, Normal Capillary Refill Skin: Warm, Dry, Intact Neurological: No New Focal Deficit Psy/Mental Status: Alert, Normal Affect Sepsis Event Note - Evaluation Sepsis Screening Result: No Definite Risk - Focused Exam Vital Signs: Vital Signs Temp Pulse Pulse Resp BP BP Pulse Ox 05/19/19 11:40 97.5 F 68 22 H 103/58 L 92 L 05/19/19 07:34 76 116/62 05/19/19 06:36 97.9 F 80 20 118/62 91 L 05/19/19 03:18 98.2 F 75 18 118/58 L 92 L Date Exam was Performed: 05/19/19 Time Exam was Performed: 13:54 - Problem List & Annotations (1) Pneumonia SNOMED Code(s): 774491688 Code(s): J18.9 - PNEUMONIA, UNSPECIFIED ORGANISM Status: Acute Priority: High Current Visit: Yes Qualifiers: Pneumonia type: due to other aerobic Gram-negative bacteria Laterality: right Lung location: middle lobe of lung Qualified Code(s): J15.6 - Pneumonia due to other Gram-negative bacteria (2) Palliative care patient SNOMED Code(s): 968065070 Code(s): Z51.5 - ENCOUNTER FOR PALLIATIVE CARE Status: Chronic Priority: High Current Visit: Yes (3) Congestive heart failure (CHF) SNOMED Code(s): 84667272 Code(s): I50.9 - HEART FAILURE, UNSPECIFIED Status: Chronic Current Visit : No Qualifiers: Qualified Code(s): I50.23 - Acute on chronic systolic (congestive) heart failure - Problem List Review Problem List Initiated/Reviewed/Updated: Yes - My Orders Last 24 Hours: My Active Orders 05/19/19 23:01 Zolpidem [Ambien] 10 mg PO BEDTIME PRN 05/20/19 08:00 Furosemide [Lasix] 40 mg IVPUSH Q24H 05/18/19 22:31 Albuterol [Proventil Neb Soln] 2.5 mg NEB Q4H PRN - Plan Plan:: [place] appears better today than last night. WBC and CRP have improved today. We did start IV lasix for elevated ProBNP and lung sounds have improved today. We will continue current treatment plan. Will closely monitor.
[2019-05-19] MEDS: Azithromycin 500 MG in Sodium Chloride 0.9% 250 ML IV SCH (15:01)
[2019-05-19] MEDS: cefTRIAXone 1 GM Vial IVPUSH SCH (15:01)
[2019-05-19] MEDS: Cholecalciferol (Vitamin D3) 25 MCG Tab PO SCH (19:50)
[2019-05-19] MEDS: Simvastatin 20 MG Tab PO SCH (19:51)
[2019-05-19] MEDS: Folic Acid 1 MG Tab PO SCH (19:51)
[2019-05-19] MEDS ORDERED: Zolpidem 5 MG Tab ONE ×2 (20:06→20:18)
[2019-05-19] MEDS: Zolpidem 5 MG Tab PO PRN (20:08)
[2019-05-20] MEDS: Calcium Carbonate/Magnesium Oxide/Zinc Oxide Tab PO SCH (08:28)
[2019-05-20] MEDS: Montelukast 10 MG Tab PO SCH (08:28)
[2019-05-20] MEDS: Vitamin B Complex Cap PO SCH (08:28)
[2019-05-20] MEDS: Psyllium Husk Powder Sugar Free 5.85 GM Packet PO SCH (08:29)
[2019-05-20] MEDS: Carvedilol 12.5 MG Tab PO SCH ×2 (08:29→19:53)
[2019-05-20] MEDS: methylPREDNISolone Sodium Succinate 125 MG/2 ML SDV IVPUSH SCH ×2 (08:30→19:54)
[2019-05-20] MEDS: Albuterol 0.083% 2.5 MG/3 ML Neb Soln NEB SCH ×4 (08:32→19:53)
[2019-05-20] MEDS: Furosemide 40 MG/4 ML VIAL IVPUSH SCH (08:33)
--- NOTE | 2019-05-20 09:21 | PCM.PN ---
- General Info Date of Service: 05/20/19 Admission Dx/Problem (Free Text): RML pneumonia Respiratory Distress Functional Status: Reports: Pain Controlled, Tolerating Diet. Denies: Ambulating - Review of Systems General: Reports: Weakness, Fatigue, Malaise. Denies: Fever HEENT: Reports: Rhinitis. Denies: Ear Pain, Sinus Congestion Pulmonary: Reports: Shortness of Breath, Cough, Sputum, Hemoptysis, Wheezing Cardiovascular: Denies: Chest Pain, Edema, Lightheadedness Gastrointestinal: Denies: Abdominal Pain, Nausea, Vomiting Genitourinary: Reports: No Symptoms Musculoskeletal: Reports: No Symptoms Skin: Reports: No Symptoms Neurological: Reports: Weakness - Patient Data Vitals - Most Recent: Last Vital Signs Temp 96.9 F 05/20/19 08:00 Pulse 77 05/20/19 08:29 Resp 22 H 05/20/19 08:00 BP 118/73 05/20/19 08:29 Pulse Ox 92 L 05/20/19 08:00 Weight - Most Recent: 192 lb 12.8 oz Lab Results Last 24 Hours: Laboratory Results - last 24 hr 05/19/19 05/19/19 05/19/19 Range/Units 11:34 15:58 19:37 WBC (5.0-10.0) 10^3/uL RBC (4.50-6.00) 10^6/uL Hgb (14.0-18.0) g/dL Hct (40.0-54.0) % MCV (82.0-94.0) fL MCH (27.0-32.0) pg MCHC (33.0-38.0) g/dL RDW Coeff of Brooke (11.0-15.0) % Plt Count (150-400) 10^3/uL Neut % (Auto) (35-85) % Lymph % (Auto) (10-55) % Cottle % (Auto) (0-16) % Eos % (Auto) (0-5) % Baso % (Auto) (0-3) % Neut # (Auto) (1.80-7.00) 10^3/uL Lymph # (Auto) (1.00-4.80) 10^3/uL Cottle # (Auto) (0.00-0.80) 10^3/uL Eos # (Auto) (0.00-0.45) 10^3/uL Baso # (Auto) 10^3/uL PT (9.7-12.3) SEC INR (0.92-1.18) Sodium (136-145) mEq/L Potassium (3.5-5.0) mEq/L Chloride (98-106) mEq/L Carbon Dioxide (21-32) mmol/L BUN (7-18) mg/dL Creatinine (0.7-1.3) mg/dL Est Cr Clr Drug Dosing mL/min Estimated GFR (MDRD) (>=60) mL/min Glucose (75-99) mg/dL POC Glucose 251 H 269 H 209 H (75-105) mg/dl Calcium (8.4-10.1) mg/dL C-Reactive Protein (0.2-0.8) mg/dL 05/20/19 05/20/19 05/20/19 Range/Units 07:47 07:55 07:55 WBC 16.6 H (5.0-10.0) 10^3/uL RBC 4.09 L (4.50-6.00) 10^6/uL Hgb 13.3 L (14.0-18.0) g/dL Hct 40.0 (40.0-54.0) % MCV 97.8 H (82.0-94.0) fL MCH 32.5 H (27.0-32.0) pg MCHC 33.3 (33.0-38.0) g/dL RDW Coeff of Brooke 13.7 (11.0-15.0) % Plt Count 206 (150-400) 10^3/uL Neut % (Auto) 89.3 H (35-85) % Lymph % (Auto) 6.6 L (10-55) % Cottle % (Auto) 4.0 (0-16) % Eos % (Auto) 0 (0-5) % Baso % (Auto) 0.1 (0-3) % Neut # (Auto) 14.80 H (1.80-7.00) 10^3/uL Lymph # (Auto) 1.10 (1.00-4.80) 10^3/uL Cottle # (Auto) 0.67 (0.00-0.80) 10^3/uL Eos # (Auto) 0.00 (0.00-0.45) 10^3/uL Baso # (Auto) 0.01 10^3/uL PT 45.7 H (9.7-12.3) SEC INR 4.85 H* (0.92-1.18) Sodium (136-145) mEq/L Potassium (3.5-5.0) mEq/L Chloride (98-106) mEq/L Carbon Dioxide (21-32) mmol/L BUN (7-18) mg/dL Creatinine (0.7-1.3) mg/dL Est Cr Clr Drug Dosing mL/min Estimated GFR (MDRD) (>=60) mL/min Glucose (75-99) mg/dL POC Glucose 158 H (75-105) mg/dl Calcium (8.4-10.1) mg/dL C-Reactive Protein (0.2-0.8) mg/dL 05/20/19 Range/Units 07:55 WBC (5.0-10.0) 10^3/uL RBC (4.50-6.00) 10^6/uL Hgb (14.0-18.0) g/dL Hct (40.0-54.0) % MCV (82.0-94.0) fL MCH (27.0-32.0) pg MCHC (33.0-38.0) g/dL RDW Coeff of Brooke (11.0-15.0) % Plt Count (150-400) 10^3/uL Neut % (Auto) (35-85) % Lymph % (Auto) (10-55) % Cottle % (Auto) (0-16) % Eos % (Auto) (0-5) % Baso % (Auto) (0-3) % Neut # (Auto) (1.80-7.00) 10^3/uL Lymph # (Auto) (1.00-4.80) 10^3/uL Cottle # (Auto) (0.00-0.80) 10^3/uL Eos # (Auto) (0.00-0.45) 10^3/uL Baso # (Auto) 10^3/uL PT (9.7-12.3) SEC INR (0.92-1.18) Sodium 140 (136-145) mEq/L Potassium 4.3 (3.5-5.0) mEq/L Chloride 103 (98-106) mEq/L Carbon Dioxide 26 (21-32) mmol/L BUN 72 H* (7-18) mg/dL Creatinine 1.8 H (0.7-1.3) mg/dL Est Cr Clr Drug Dosing 26.09 mL/min Estimated GFR (MDRD) 36 L (>=60) mL/min Glucose 167 H (75-99) mg/dL POC Glucose (75-105) mg/dl Calcium 8.2 L (8.4-10.1) mg/dL C-Reactive Protein 13.8 H (0.2-0.8) mg/dL [place] Results Last 24 Hours: Microbiology 05/18/19 15:24 Gram Stain - Final Sputum - Expectorated Med Orders - Current: Current Medications Acetaminophen (Tylenol) 650 mg PO Q4H PRN PRN Reason: Pain (Mild 1-3)/fever Albuterol (Proventil Neb Soln) 2.5 mg NEB QIDRT [facility] Last Admin: 05/20/19 08:32 Dose: 2.5 mg Albuterol (Proventil Neb Soln) 2.5 mg NEB Q4H PRN PRN Reason: Dyspnea Last Admin: 05/19/19 03:15 Dose: 2.5 mg Allopurinol (Zyloprim) 100 mg PO DAILY@1200 [facility] Last Admin: 05/19/19 13:01 Dose: 100 mg Calcium/Magnesium/Zinc (Calcium & Magnesium Plus Zinc) 2 tab PO DAILY [facility] Last Admin: 05/20/19 08:28 Dose: 2 tab Carvedilol (Coreg) 12.5 mg PO BID [facility] Last Admin: 05/20/19 08:29 Dose: 12.5 mg Ceftriaxone Sodium (Rocephin) 1 gm IVPUSH Q24H [facility] Last Admin: 05/19/19 15:01 Dose: 1 gm Cholecalciferol (Vitamin D3) 50 mcg PO BEDTIME [facility] Last Admin: 05/19/19 19:50 Dose: 50 mcg Folic Acid (Folic Acid) 0.5 mg PO BEDTIME [facility] Last Admin: 05/19/19 19:51 Dose: 0.5 mg Furosemide (Lasix) 40 mg IVPUSH Q24H [facility] Last Admin: 05/20/19 08:33 Dose: 40 mg Azithromycin 500 mg/ Sodium (Chloride) 250 mls @ 250 mls/hr IV Q24H [facility] Last Admin: 05/19/19 15:01 Dose: 250 mls/hr Insulin Glargine (Lantus Solostar) 8 units SUBCUT BID [facility] Last Admin: 05/19/19 20:00 Dose: 8 units Insulin Human Lispro (Humalog) 0 unit SUBCUT WITHMEALSANDBED [facility]; Protocol Last Admin: 05/19/19 20:01 Dose: 6 units Methylprednisolone Sodium Succinate (Solu-Medrol) 62.5 mg IVPUSH Q12H [facility] Last Admin: 05/20/19 08:30 Dose: 62.5 mg Montelukast Sodium (Singulair) 10 mg PO DAILY [facility] Last Admin: 05/20/19 08:28 Dose: 10 mg Ondansetron HCl (Zofran Odt) 4 mg PO Q4H PRN PRN Reason: nausea, able to take PO Ondansetron HCl (Zofran) 4 mg IV Q4H PRN PRN Reason: Nausea/Vomiting Psyllium Husk (Metamucil Sugar Free) 1 pkt PO DAILY [facility] Last Admin: 05/20/19 08:29 Dose: 1 pkt Simvastatin (Zocor) 20 mg PO BEDTIME [facility] Last Admin: 05/19/19 19:51 Dose: 20 mg Sodium Chloride (Saline Flush) 10 ml FLUSH ASDIRECTED PRN PRN Reason: Keep Vein Open Spironolactone (Aldactone) 12.5 mg PO DAILY@1200 [facility] Last Admin: 05/19/19 13:01 Dose: 12.5 mg Vitamin B Complex (Vitamin B Complex) 1 each PO DAILY [facility] Last Admin: 05/20/19 08:28 Dose: 1 each Warfarin Sodium (Coumadin) 1 mg PO SuTuWeThFrSa@1200 [facility] Last Admin: 05/19/19 13:04 Dose: 1 mg Warfarin Sodium (Coumadin) 2 mg PO Mo@1200 [facility] Zolpidem Tartrate (Ambien) 10 mg PO BEDTIME PRN PRN Reason: Insomnia Last Admin: 05/19/19 20:08 Dose: 10 mg Discontinued Medications Albuterol/Ipratropium (Duoneb 3.0-0.5 Mg/3 Ml) 3 ml NEB ONETIME ONE Stop: 05/18/19 11:48 Last Admin: 05/18/19 11:50 Dose: 3 ml Albuterol/Ipratropium (Duoneb 3.0-0.5 Mg/3 Ml) Confirm Administered Dose 3 ml .ROUTE .STK-MED ONE Stop: 05/18/19 11:32 Last Admin: 05/18/19 12:37 Dose: Not Given Furosemide (Lasix) 20 mg PO 1200 [facility] Furosemide (Lasix) 20 mg PO BID@0800,1200 [facility] Last Admin: 05/18/19 16:23 Dose: 20 mg Furosemide (Lasix) 40 mg IVPUSH Q24H [facility] Last Admin: 05/19/19 02:20 Dose: 40 mg Methylprednisolone Sodium Succinate (Solu-Medrol) 62.5 mg IVPUSH Q12H [facility] Last Admin: 05/19/19 02:20 Dose: 62.5 mg Non-Formulary Medication (Insulin Detemir [Levemir Flextouch]) 8 unit SUBCUT BEDTIME [facility] Temazepam (Restoril) 15 mg PO BEDTIME PRN PRN Reason: Sleep Last Admin: 05/18/19 20:25 Dose: 15 mg Zolpidem Tartrate (Ambien) Confirm Administered Dose 5 mg .ROUTE .STK-MED ONE Stop: 05/18/19 21:59 Last Admin: 05/18/19 22:46 Dose: Not Given Zolpidem Tartrate (Ambien) 5 mg PO BEDTIME PRN PRN Reason: Insomnia Zolpidem Tartrate (Ambien) Confirm Administered Dose 5 mg .ROUTE .STK-MED ONE Stop: 05/19/19 20:07 Last Admin: 05/19/19 20:04 Dose: Not Given Zolpidem Tartrate (Ambien) Confirm Administered Dose 5 mg .ROUTE .STK-MED ONE Stop: 05/19/19 20:19 Last Admin: 05/19/19 20:29 Dose: Not Given - Exam Quality Assessment: Supplemental Oxygen General: Alert, Oriented HEENT: Mucous Membr. Moist/[place] Neck: Supple Lungs: Decreased Breath Sounds, Wheezing Cardiovascular: Regular Rate, Regular Rhythm GI/Abdominal Exam: Normal Bowel Sounds, Soft, Non-Tender Extremities: Normal Inspection, Pedal Edema (1+) Skin: Warm, Dry Neurological: No New Focal Deficit Sepsis Event Note - Evaluation Sepsis Screening Result: No Definite Risk - Focused Exam Vital Signs: Vital Signs Temp Pulse Pulse Resp BP BP Pulse Ox 05/20/19 08:29 77 118/73 05/20/19 08:00 96.9 F 77 22 H 118/73 92 L 05/20/19 03:51 97.2 F 75 18 127/72 91 L 05/20/19 00:00 97.8 F 20 109/63 96 Date Exam was Performed: 05/20/19 Time Exam was Performed: 09:16 - Problem List & Annotations (1) Diabetes mellitus SNOMED Code(s): 62618534 Code(s): E11.9 - TYPE 2 DIABETES MELLITUS WITHOUT COMPLICATIONS Status: Acute Priority: Medium Current Visit: Yes Qualifiers: Diabetes mellitus type: type 2 Diabetes mellitus longterm insulin use: with lobsterman use Diabetes mellitus complication status: without complication Qualified Code(s): E11.9 - Type 2 diabetes mellitus without complications; Z79.4 - [facility] (current) use of insulin (2) Pneumonia SNOMED Code(s): 716520175 Code(s): J18.9 - PNEUMONIA, UNSPECIFIED ORGANISM Status: Acute Priority: High Current Visit: Yes Qualifiers: Pneumonia type: due to other aerobic Gram-negative bacteria Laterality: right Lung location: middle lobe of lung Qualified Code(s): J15.6 - Pneumonia due to other Gram-negative bacteria (3) Palliative care patient SNOMED Code(s): 402878421 Code(s): Z51.5 - ENCOUNTER FOR PALLIATIVE CARE Status: Chronic Priority: High Current Visit: Yes (4) General weakness SNOMED Code(s): 41163159 Code(s): R53.1 - WEAKNESS Status: Acute Priority: High Current Visit: Yes (5) Respiratory distress SNOMED Code(s): 291363076 Code(s): R06.03 - ACUTE RESPIRATORY DISTRESS Status: Acute Priority: High Current Visit: Yes (6) Congestive heart failure (CHF) SNOMED Code(s): 24226731 Code(s): I50.9 - HEART FAILURE, UNSPECIFIED Status: Acute Priority: High Current Visit: Yes Qualifiers: Qualified Code(s): I50.23 - Acute on chronic systolic (congestive) heart failure Annotation/Comment:: Acute on Chronic systolic heart failure, class II - Problem List Review Problem List Initiated/Reviewed/Updated: Yes - My Orders Last 24 Hours: My Active Orders 05/19/19 20:00 methylPREDNISolone Sod Succ [Solu-MEDROL] 62.5 mg IVPUSH Q12H 05/20/19 09:04 Chest wo Cont [CT] Routine 05/21/19 05:11 INR,PT,PROTHROMBIN TIME [COAG] DAILY 05/22/19 05:11 INR,PT,PROTHROMBIN TIME [COAG] DAILY 05/23/19 05:11 INR,PT,PROTHROMBIN TIME [COAG] DAILY 05/24/19 12:00 Warfarin [Coumadin] 2 mg PO Mo@1200 - Assessment Assessment:: RML Pneumonia Respiratory Distress Weakness Palliative Care Acute on Chronic Systolic Failure, class II - Plan Plan:: [place] appears better today than last night. WBC and CRP have improved today. We did start IV lasix for elevated ProBNP and lung sounds have improved today. We will continue current treatment plan. Will closely monitor. 05-20-2019 Patient feeling better than on admit. Does still feel weak. Continues to have persistent cough, now note hemoptysis. Did collect sputum on admit, awaiting sensitivities. Continues to be hypoxic at times, sats drop to 90-91 on 4 liters. Chest less rattly than on admit, continues to have inspiratory and expiratory wheezing. Labs show improvement, WBC still high at 16.6 but is on IV steroids. CRP has improved to 13.8. Creatinine stable at 1.8. INR is critical today at 1.85 Will hold Coumadin, daily INR. Repeat labs in am. Continue IV antibiotics, Lasix. Will obtain CT scan of chest today. Continue nebs. Await sputum.
[2019-05-20] MEDS: Insulin Lispro 100 Units/ML 3 ML Vial SUBCUT SCH ×4 (10:52→20:00)
[2019-05-20] MEDS: Insulin Glargine,Human Rec. Analog 100 Units/ML 3 ML Pen SUBCUT SCH ×2 (10:57→20:02)
[2019-05-20] MEDS: Allopurinol 100 MG Tab PO SCH (11:22)
[2019-05-20] MEDS: Spironolactone 25 MG Tab PO SCH (11:22)
[2019-05-20] MEDS: cefTRIAXone 1 GM Vial IVPUSH SCH (13:36)
[2019-05-20] MEDS: Azithromycin 500 MG in Sodium Chloride 0.9% 250 ML IV SCH (13:36)
[2019-05-20] MEDS: Folic Acid 1 MG Tab PO SCH (19:53)
[2019-05-20] MEDS: Simvastatin 20 MG Tab PO SCH (19:53)
[2019-05-20] MEDS: Cholecalciferol (Vitamin D3) 25 MCG Tab PO SCH (19:53)
[2019-05-20] MEDS: Zolpidem 5 MG Tab PO PRN (20:06)
[2019-05-21] MEDS: Vitamin B Complex Cap PO SCH (07:52)
[2019-05-21] MEDS: Calcium Carbonate/Magnesium Oxide/Zinc Oxide Tab PO SCH (07:52)
[2019-05-21] MEDS: Carvedilol 12.5 MG Tab PO SCH (07:53)
[2019-05-21] MEDS: Montelukast 10 MG Tab PO SCH (07:53)
[2019-05-21 07:54] VITALS: BP 137/77; PULSE 77
[2019-05-21] MEDS: Albuterol 0.083% 2.5 MG/3 ML Neb Soln NEB SCH (07:54)
[2019-05-21] MEDS: Psyllium Husk Powder Sugar Free 5.85 GM Packet PO SCH (07:54)
[2019-05-21] MEDS: Furosemide 40 MG/4 ML VIAL IVPUSH SCH (07:55)
[2019-05-21] MEDS: Insulin Lispro 100 Units/ML 3 ML Vial SUBCUT SCH (09:03)
[2019-05-21] MEDS: Insulin Glargine,Human Rec. Analog 100 Units/ML 3 ML Pen SUBCUT SCH (09:05)
[2019-05-21] MEDS: methylPREDNISolone Sodium Succinate 125 MG/2 ML SDV IVPUSH SCH (09:06)
[2019-05-24] MEDS ORDERED: Warfarin 2 MG Tab PO SCH (12:00)
--- NOTE | 2019-05-24 21:33 | PCM.DCSUM1 ---
Discharge Summary - Hospital Course Free Text/Narrative:: Patient presented to ER with complaints of increased shortness of breath, cough. Had noted more intolerance with activity. He had not been eating or drinking well over the last few days prior to presentation. Lungs wet, rattly and wheezy. No fevers, has been chilled. Patient had recently gotten his second shingles vaccine and questioned if it is possibly related. Chest xray shows a right mid lobe infiltrate. WBC 16.9. CRP 55.7. Creatinine 2.1. INR 2.45. ADmitted, started on IV fluids, antibiotics, nebs. Oxygen sats in 80s in ER, started on oxygen at 4 liters. Diagnosis: Stroke: No Modified [place] Scale: No Symptoms at All Modified [place] Scale Score: 0 - Discharge Data Discharge Date: 05/21/19 Discharge Disposition: DC/Tfer W/I Hosp To Swing 61 Condition: Good - Referral to Home Health Primary Care Physician: MICAH Gómez - Discharge Diagnosis/Problem(s) (1) Diabetes mellitus SNOMED Code(s): 37981548 ICD Code: E11.9 - TYPE 2 DIABETES MELLITUS WITHOUT COMPLICATIONS Status: Acute Priority: Medium Qualifiers: Diabetes mellitus type: type 2 Diabetes mellitus director long term care insulin use: with director long term care use Diabetes mellitus complication status: without complication Qualified Code(s): E11.9 - Type 2 diabetes mellitus without complications; Z79.4 - director long term care (current) use of insulin (2) Pneumonia SNOMED Code(s): 594569565 ICD Code: J18.9 - PNEUMONIA, UNSPECIFIED ORGANISM Status: Acute Priority : High Qualifiers: Pneumonia type: due to other aerobic Gram-negative bacteria Laterality: right Lung location: middle lobe of lung Qualified Code(s): J15.6 - Pneumonia due to other Gram-negative bacteria (3) Palliative care patient SNOMED Code(s): 987734404 ICD Code: Z51.5 - ENCOUNTER FOR PALLIATIVE CARE Status: Chronic Priority : High (4) General weakness SNOMED Code(s): 33448499 ICD Code: R53.1 - WEAKNESS Status: Acute Priority: High (5) Respiratory distress SNOMED Code(s): 631321579 ICD Code: R06.03 - ACUTE RESPIRATORY DISTRESS Status: Acute Priority: High (6) Congestive heart failure (CHF) SNOMED Code(s): 33810118 ICD Code: I50.9 - HEART FAILURE, UNSPECIFIED Status: Acute Priority: High Problem Details: Acute on Chronic systolic heart failure, class II Qualifiers: Qualified Code(s): I50.23 - Acute on chronic systolic (congestive) heart failure - Patient Summary/Data Complications: none Hospital Course: Patient is slowly improving. On the first night, patient did have increased respiratory distress. Oxygen was increased, neb given. ProBNP tested, 3558. Given IV Lasix. On day 2, did start to show improvement. Lung sounds continue to have crackles and wheezing. Is ambulating short distances with standby assist and oxygen on at 4 liters. WBC remained high at 6.9, currently on steroids. INR high at 4.85, coumadin on hold. Creatinine improved to 1.8. CRP has decreased to 13.8. Still requiring 3-4 liters to maintain sats. Will transfer to swing bed for ongoing IV antibiotics, nebs. Solu Medrol decreased to daily as lungs improving and having difficulty sleeping. INR daily, Coumadin on hold. Watch blood sugars, humalog per sliding scale. Has had hemoptysis, large amount of sputum production. CT scan was done of chest, shows bilateral lower lobe pneumonia, right upper lobe infiltrate as well. - Patient Instructions Diet: Diabetic Diet Activity: As Tolerated - Discharge Plan *PRESCRIPTION DRUG MONITORING PROGRAM REVIEWED*: No *COPY OF PRESCRIPTION DRUG MONITORING REPORT IN PATIENT ADRIENNE: No Home Medications: Home Meds Ascorbate Calcium [Vitamin C] 500 mg PO DAILY 12/20/13 [History] Calcium Carb/Mag Ox/Zinc Gluc [Lbqzmet-Oxyrarcbm-Xzld] 2 each PO DAILY 12/20/13 [History] Cholecalciferol (Vitamin D3) [Vitamin D3] 2,000 unit PO BEDTIME 12/20/13 [ History] Folic Acid 0.4 mg PO BEDTIME 12/20/13 [History] Psyllium Seed/Aspartame [Metamucil Powder] 1 tbsp PO DAILY 12/20/13 [History] Zolpidem [Ambien] 2 tab PO BEDTIME PRN 12/20/13 [History] carvediloL [Carvedilol] 12.5 mg PO BID 12/20/13 [History] Vitamin B Complex [B Complex] 1 tab PO DAILY 11/22/15 [History] Simvastatin [Zocor] 20 mg PO BEDTIME tablet 11/25/15 [Rx] Insulin Detemir [Levemir] 8 units SQ WITHBREAKFAST 08/27/16 [History] Furosemide 20 mg PO 1200 08/28/16 [History] Furosemide 20 mg PO WITHBREAKFAST 08/28/16 [History] Insulin Detemir [Levemir Flextouch] 8 unit SUBCUT BEDTIME 08/28/16 [History] Spironolactone [Aldactone] 12.5 mg PO 1200 12/30/16 [History] Montelukast Sodium 10 mg PO DAILY 05/05/17 [History] Warfarin [Coumadin] 1 mg PO SUTUWETHFRSA 05/05/17 [History] Albuterol/Ipratropium [DuoNeb 3.0-0.5 MG/3 ML] 3 ml NEB DAILY 05/18/19 [History] Warfarin [Coumadin] 2 mg PO MO 05/18/19 [History] allopurinoL [Zyloprim] 100 mg PO 1200 05/18/19 [History] Oxygen Therapy Mode: Nasal Cannula Patient Handouts: Community-Acquired Pneumonia, Adult Forms: ED Department Discharge Referrals: Cathy Mckeon PA [Primary Care Provider] - - Discharge Summary/Plan Comment DC Time >30 min.: No - General Info Date of Service: 05/21/19 Admission Dx/Problem (Free Text: RML pneumonia Respiratory Distress Functional Status: Reports: Pain Controlled, Tolerating Diet, Ambulating - Review of Systems General: Reports: Weakness, Fatigue, Malaise HEENT: Reports: Rhinitis Pulmonary: Reports: Shortness of Breath, Cough, Sputum, Hemoptysis, Wheezing Gastrointestinal: Denies: Abdominal Pain, Nausea, Vomiting Genitourinary: Reports: No Symptoms Musculoskeletal: Reports: No Symptoms Skin: Reports: No Symptoms - Patient Data Vitals - Most Recent: Last Vital Signs Temp 97.3 F 05/21/19 08:00 Pulse 77 05/21/19 08:00 Resp 05/21/19 08:00 BP 137/77 05/21/19 08:00 Pulse Ox 99 05/21/19 08:00 Weight - Most Recent: 192 lb 12.8 oz Lab Results - Last 24 hrs: Laboratory Results - last 24 hr 05/22/19 05/22/19 05/23/19 Range/Units 07:53 17:09 11:51 POC Glucose Cancelled Cancelled Cancelled 05/23/19 Range/Units 17:20 POC Glucose Cancelled Med Orders - Current: Current Medications Discontinued Medications Acetaminophen (Tylenol) 650 mg PO Q4H PRN PRN Reason: Pain (Mild 1-3)/fever Albuterol (Proventil Neb Soln) 2.5 mg NEB QIDRT [facility] Last Admin: 05/21/19 07:54 Dose: 2.5 mg Albuterol (Proventil Neb Soln) 2.5 mg NEB Q4H PRN PRN Reason: Dyspnea Last Admin: 05/19/19 03:15 Dose: 2.5 mg Albuterol/Ipratropium (Duoneb 3.0-0.5 Mg/3 Ml) 3 ml NEB ONETIME ONE Stop: 05/18/19 11:48 Last Admin: 05/18/19 11:50 Dose: 3 ml Albuterol/Ipratropium (Duoneb 3.0-0.5 Mg/3 Ml) Confirm Administered Dose 3 ml .ROUTE .STK-MED ONE Stop: 05/18/19 11:32 Last Admin: 05/18/19 12:37 Dose: Not Given Allopurinol (Zyloprim) 100 mg PO DAILY@1200 [facility] Last Admin: 05/20/19 11:22 Dose: 100 mg Calcium/Magnesium/Zinc (Calcium & Magnesium Plus Zinc) 2 tab PO DAILY [facility] Last Admin: 05/21/19 07:52 Dose: 2 tab Carvedilol (Coreg) 12.5 mg PO BID [facility] Last Admin: 05/21/19 07:53 Dose: 12.5 mg Ceftriaxone Sodium (Rocephin) 1 gm IVPUSH Q24H [facility] Last Admin: 05/20/19 13:36 Dose: 1 gm Cholecalciferol (Vitamin D3) 50 mcg PO BEDTIME [facility] Last Admin: 05/20/19 19:53 Dose: 50 mcg Folic Acid (Folic Acid) 0.5 mg PO BEDTIME [facility] Last Admin: 05/20/19 19:53 Dose: 0.5 mg Furosemide (Lasix) 20 mg PO 1200 [facility] Furosemide (Lasix) 20 mg PO BID@0800,1200 [facility] Last Admin: 05/18/19 16:23 Dose: 20 mg Furosemide (Lasix) 40 mg IVPUSH Q24H [facility] Last Admin: 05/19/19 02:20 Dose: 40 mg Furosemide (Lasix) 40 mg IVPUSH Q24H [facility] Last Admin: 05/21/19 07:55 Dose: 40 mg Azithromycin 500 mg/ Sodium (Chloride) 250 mls @ 250 mls/hr IV Q24H [facility] Last Admin: 05/20/19 13:36 Dose: 250 mls/hr Insulin Glargine (Lantus Solostar) 8 units SUBCUT BID [facility] Last Admin: 05/21/19 09:05 Dose: 8 units Insulin Human Lispro (Humalog) 0 unit SUBCUT WITHMEALSANDBED [facility]; Protocol Last Admin: 05/21/19 09:03 Dose: 3 units Methylprednisolone Sodium Succinate (Solu-Medrol) 62.5 mg IVPUSH Q12H [facility] Last Admin: 05/19/19 02:20 Dose: 62.5 mg Methylprednisolone Sodium Succinate (Solu-Medrol) 62.5 mg IVPUSH Q12H [facility] Last Admin: 05/21/19 09:06 Dose: 62.5 mg Montelukast Sodium (Singulair) 10 mg PO DAILY [facility] Last Admin: 05/21/19 07:53 Dose: 10 mg Non-Formulary Medication (Insulin Detemir [Levemir Flextouch]) 8 unit SUBCUT BEDTIME [facility] Ondansetron HCl (Zofran Odt) 4 mg PO Q4H PRN PRN Reason: nausea, able to take PO Ondansetron HCl (Zofran) 4 mg IV Q4H PRN PRN Reason: Nausea/Vomiting Phytonadione (Aquamephyton) 1 mg SUBCUT ONETIME ONE Stop: 05/21/19 08:18 Psyllium Husk (Metamucil Sugar Free) 1 pkt PO DAILY [facility] Last Admin: 05/21/19 07:54 Dose: 1 pkt Simvastatin (Zocor) 20 mg PO BEDTIME [facility] Last Admin: 05/20/19 19:53 Dose: 20 mg Sodium Chloride (Saline Flush) 10 ml FLUSH ASDIRECTED PRN PRN Reason: Keep Vein Open Spironolactone (Aldactone) 12.5 mg PO DAILY@1200 [facility] Last Admin: 05/20/19 11:22 Dose: 12.5 mg Temazepam (Restoril) 15 mg PO BEDTIME PRN PRN Reason: Sleep Last Admin: 05/18/19 20:25 Dose: 15 mg Vitamin B Complex (Vitamin B Complex) 1 each PO DAILY [facility] Last Admin: 05/21/19 07:52 Dose: 1 each Warfarin Sodium (Coumadin) 1 mg PO SuTuWeThFrSa@1200 [facility] Last Admin: 05/19/19 13:04 Dose: 1 mg Warfarin Sodium (Coumadin) 2 mg PO Mo@1200 [facility] Zolpidem Tartrate (Ambien) Confirm Administered Dose 5 mg .ROUTE .STK-MED ONE Stop: 05/18/19 21:59 Last Admin: 05/18/19 22:46 Dose: Not Given Zolpidem Tartrate (Ambien) 5 mg PO BEDTIME PRN PRN Reason: Insomnia Zolpidem Tartrate (Ambien) 10 mg PO BEDTIME PRN PRN Reason: Insomnia Last Admin: 05/20/19 20:06 Dose: 10 mg Zolpidem Tartrate (Ambien) Confirm Administered Dose 5 mg .ROUTE .STK-MED ONE Stop: 05/19/19 20:07 Last Admin: 05/19/19 20:04 Dose: Not Given Zolpidem Tartrate (Ambien) Confirm Administered Dose 5 mg .ROUTE .STK-MED ONE Stop: 05/19/19 20:19 Last Admin: 05/19/19 20:29 Dose: Not Given - Exam Quality Assessment: Reports: Supplemental Oxygen General: Reports: Alert, Oriented HEENT: Reports: Mucous Membr. Moist/[place] Neck: Reports: Supple Lungs: Reports: Crackles, Wheezing Cardiovascular: Reports: Regular Rate, Regular Rhythm GI/Abdominal Exam: Normal Bowel Sounds, Soft, Non-Tender Extremities: Normal Inspection, No Pedal Edema Skin: Reports: Warm, Dry Neurological: Reports: No New Focal Deficit
== END 2019-05-21 10:49 | disposition swing bed (61) | DRG 177 ==
LOC: CC.ED 11:25 → CC.MS 13:48 → UNDOADMIN 13:48 → CC.MS 13:52
PROVIDERS: ADMIT Physician Assistant Medical; ATTEND Family Medicine
DX: J15.212 Pneumonia due to Methicillin resistant Staphylococcus aureus (principal); R09.02 Hypoxemia; J15.6 Pneumonia due to other Gram-negative bacteria; H91.90 Unspecified hearing loss, unspecified ear; I50.9 Heart failure, unspecified; I50.23 Acute on chronic systolic (congestive) heart failure; I11.0 Hypertensive heart disease with heart failure; Z51.5 Encounter for palliative care; E11.9 Type 2 diabetes mellitus without complications; H54.7 Unspecified visual loss; H91.93 Unspecified hearing loss, bilateral; E78.00 Pure hypercholesterolemia, unspecified; G47.30 Sleep apnea, unspecified; K21.9 Gastro-esophageal reflux disease without esophagitis; R53.1 Weakness; R06.03 Acute respiratory distress; M19.90 Unspecified osteoarthritis, unspecified site; G89.29 Other chronic pain; Z85.89 Personal history of malignant neoplasm of other organs and systems; M54.9 Dorsalgia, unspecified; M10.9 Gout, unspecified; Z85.46 Personal history of malignant neoplasm of prostate; Z79.4 Long term (current) use of insulin; Z79.01 Long term (current) use of anticoagulants; Z79.899 Other long term (current) drug therapy; Z86.14 Personal history of Methicillin resistant Staphylococcus aureus infection; Z88.1 Allergy status to other antibiotic agents; Z85.828 Personal history of other malignant neoplasm of skin; Z90.79 Acquired absence of other genital organ(s); Z95.1 Presence of aortocoronary bypass graft; I25.2 Old myocardial infarction; Z95.0 Presence of cardiac pacemaker; Z87.01 Personal history of pneumonia (recurrent); Z90.49 Acquired absence of other specified parts of digestive tract
CPT/HCPCS: 36415; 71046; 71250; 80048; 80053; 82550; 82962; 83605; 83880; 84484; 85025; 85379; 85610; 86140; 87070; 87205; 87804; 94640; 99285-25; A9270-GY; J0456; J0696; J1815; J1815-GY; J1940; J2930; J7050; J7613-GY; J7620-GY

== ENCOUNTER 2019-05-21 08:52 | Inpatient (IN) | payer MEDICARE, BC ==
[2019-05-21] MEDS ORDERED: Ondansetron 4 MG Tab.DIS PO PRN (13:02)
[2019-05-21] MEDS ORDERED: Sodium Chloride 0.9% 10 ML Syringe FLUSH PRN ×2 (13:02)
[2019-05-21] MEDS ORDERED: Acetaminophen 325 MG Tab PO PRN (13:02)
[2019-05-21] MEDS ORDERED: Ondansetron 4 MG/2 ML SDV IV PRN (13:02)
[2019-05-21] MEDS ORDERED: Albuterol 0.083% 2.5 MG/3 ML Neb Soln NEB PRN (13:02)
[2019-05-21] MEDS: Insulin Lispro 100 Units/ML 3 ML Vial SUBCUT SCH ×5 (15:01→20:25)
[2019-05-21] MEDS: Azithromycin 500 MG in Sodium Chloride 0.9% 250 ML IV SCH (15:02)
[2019-05-21] MEDS: cefTRIAXone 1 GM Vial IVPUSH SCH (15:02)
[2019-05-21] MEDS: Albuterol 0.083% 2.5 MG/3 ML Neb Soln NEB SCH ×2 (16:19→19:50)
[2019-05-21] MEDS: methylPREDNISolone Sodium Succinate 125 MG/2 ML SDV IVPUSH SCH (19:50)
[2019-05-21] MEDS: Folic Acid 1 MG Tab PO SCH (19:51)
[2019-05-21] MEDS: Simvastatin 20 MG Tab PO SCH (19:52)
[2019-05-21] MEDS: Carvedilol 12.5 MG Tab PO SCH (19:52)
[2019-05-21] MEDS: Cholecalciferol (Vitamin D3) 25 MCG Tab PO SCH (19:52)
[2019-05-21] MEDS: Insulin Glargine,Human Rec. Analog 100 Units/ML 3 ML Pen SUBCUT SCH (20:22)
[2019-05-21] MEDS: Zolpidem 5 MG Tab PO PRN (20:23)
[2019-05-22] MEDS ORDERED: methylPREDNISolone Sodium Succinate 125 MG/2 ML SDV IVPUSH SCH (08:00)
[2019-05-22] MEDS: Psyllium Husk Powder Sugar Free 5.85 GM Packet PO SCH (08:53)
[2019-05-22] MEDS: Insulin Lispro 100 Units/ML 3 ML Vial SUBCUT SCH ×4 (08:54→20:39)
[2019-05-22] MEDS: Insulin Glargine,Human Rec. Analog 100 Units/ML 3 ML Pen SUBCUT SCH ×2 (08:54→20:38)
[2019-05-22] MEDS: Albuterol 0.083% 2.5 MG/3 ML Neb Soln NEB SCH ×4 (08:56→20:32)
[2019-05-22] MEDS: Carvedilol 12.5 MG Tab PO SCH ×2 (08:56→20:31)
[2019-05-22] MEDS: Montelukast 10 MG Tab PO SCH (08:57)
[2019-05-22] MEDS: Vitamin B Complex Cap PO SCH (08:57)
[2019-05-22] MEDS: Calcium Carbonate/Magnesium Oxide/Zinc Oxide Tab PO SCH (08:57)
[2019-05-22] MEDS: methylPREDNISolone Sodium Succinate 125 MG/2 ML SDV IVPUSH SCH ×2 (08:57→20:32)
[2019-05-22] MEDS: Furosemide 40 MG/4 ML VIAL IVPUSH SCH (08:59)
[2019-05-22] MEDS: Allopurinol 100 MG Tab PO SCH (12:29)
[2019-05-22] MEDS: cefTRIAXone 1 GM Vial IVPUSH SCH (14:47)
[2019-05-22] MEDS: Azithromycin 500 MG in Sodium Chloride 0.9% 250 ML IV SCH (14:49)
[2019-05-22] MEDS: Zolpidem 5 MG Tab PO PRN (20:30)
[2019-05-22] MEDS: Simvastatin 20 MG Tab PO SCH (20:31)
[2019-05-22] MEDS: Folic Acid 1 MG Tab PO SCH (20:31)
[2019-05-22] MEDS: Cholecalciferol (Vitamin D3) 25 MCG Tab PO SCH (20:32)
[2019-05-23] MEDS: methylPREDNISolone Sodium Succinate 125 MG/2 ML SDV IVPUSH SCH ×2 (07:48→19:32)
[2019-05-23] MEDS: Albuterol 0.083% 2.5 MG/3 ML Neb Soln NEB SCH ×4 (07:48→19:36)
[2019-05-23] MEDS: Psyllium Husk Powder Sugar Free 5.85 GM Packet PO SCH (07:48)
[2019-05-23] MEDS: Vitamin B Complex Cap PO SCH (07:50)
[2019-05-23] MEDS: Calcium Carbonate/Magnesium Oxide/Zinc Oxide Tab PO SCH (07:50)
[2019-05-23] MEDS: Montelukast 10 MG Tab PO SCH (07:50)
[2019-05-23] MEDS: Carvedilol 12.5 MG Tab PO SCH ×2 (07:51→19:37)
[2019-05-23] MEDS: Furosemide 40 MG/4 ML VIAL IVPUSH SCH (07:53)
[2019-05-23] MEDS: Insulin Lispro 100 Units/ML 3 ML Vial SUBCUT SCH ×4 (08:20→20:24)
[2019-05-23] MEDS: Insulin Glargine,Human Rec. Analog 100 Units/ML 3 ML Pen SUBCUT SCH ×2 (08:21→20:23)
[2019-05-23] MEDS: Allopurinol 100 MG Tab PO SCH (12:01)
[2019-05-23] MEDS: cefTRIAXone 1 GM Vial IVPUSH SCH (14:37)
[2019-05-23] MEDS: Azithromycin 500 MG in Sodium Chloride 0.9% 250 ML IV SCH (14:51)
[2019-05-23] MEDS: Folic Acid 1 MG Tab PO SCH (19:37)
[2019-05-23] MEDS: Cholecalciferol (Vitamin D3) 25 MCG Tab PO SCH (19:38)
[2019-05-23] MEDS: Simvastatin 20 MG Tab PO SCH (19:39)
[2019-05-23] MEDS: Zolpidem 5 MG Tab PO PRN (20:22)
[2019-05-24] MEDS: Psyllium Husk Powder Sugar Free 5.85 GM Packet PO SCH (08:05)
[2019-05-24] MEDS: Montelukast 10 MG Tab PO SCH (08:05)
[2019-05-24] MEDS: Vitamin B Complex Cap PO SCH (08:05)
[2019-05-24] MEDS: Albuterol 0.083% 2.5 MG/3 ML Neb Soln NEB SCH ×4 (08:05→20:30)
[2019-05-24] MEDS: Calcium Carbonate/Magnesium Oxide/Zinc Oxide Tab PO SCH (08:05)
[2019-05-24] MEDS: methylPREDNISolone Sodium Succinate 125 MG/2 ML SDV IVPUSH SCH ×2 (08:05→20:29)
[2019-05-24] MEDS: Carvedilol 12.5 MG Tab PO SCH ×2 (08:06→20:24)
[2019-05-24] MEDS: Insulin Lispro 100 Units/ML 3 ML Vial SUBCUT SCH ×4 (08:06→20:26)
[2019-05-24] MEDS: Furosemide 40 MG/4 ML VIAL IVPUSH SCH (08:06)
[2019-05-24] MEDS: Insulin Glargine,Human Rec. Analog 100 Units/ML 3 ML Pen SUBCUT SCH ×2 (08:07→20:25)
[2019-05-24] MEDS: Allopurinol 100 MG Tab PO SCH (11:34)
[2019-05-24] MEDS ORDERED: Warfarin 2 MG Tab PO SCH (12:00)
[2019-05-24] MEDS: cefTRIAXone 1 GM Vial IVPUSH SCH (14:04)
[2019-05-24] MEDS: Azithromycin 500 MG in Sodium Chloride 0.9% 250 ML IV SCH (14:04)
[2019-05-24] MEDS: Cholecalciferol (Vitamin D3) 25 MCG Tab PO SCH (20:24)
[2019-05-24] MEDS: Folic Acid 1 MG Tab PO SCH (20:24)
[2019-05-24] MEDS: Simvastatin 20 MG Tab PO SCH (20:30)
[2019-05-24] MEDS: Zolpidem 5 MG Tab PO PRN (20:40)
[2019-05-25] MEDS: Insulin Glargine,Human Rec. Analog 100 Units/ML 3 ML Pen SUBCUT SCH ×2 (07:58→20:17)
[2019-05-25] MEDS: Albuterol 0.083% 2.5 MG/3 ML Neb Soln NEB SCH ×4 (07:58→20:11)
[2019-05-25] MEDS: Insulin Lispro 100 Units/ML 3 ML Vial SUBCUT SCH ×4 (07:59→20:19)
[2019-05-25] MEDS: Calcium Carbonate/Magnesium Oxide/Zinc Oxide Tab PO SCH (07:59)
[2019-05-25] MEDS: methylPREDNISolone Sodium Succinate 125 MG/2 ML SDV IVPUSH SCH (08:00)
[2019-05-25] MEDS: Psyllium Husk Powder Sugar Free 5.85 GM Packet PO SCH (08:00)
[2019-05-25] MEDS: Vitamin B Complex Cap PO SCH (08:00)
[2019-05-25] MEDS: Furosemide 40 MG/4 ML VIAL IVPUSH SCH (08:00)
[2019-05-25] MEDS: Carvedilol 12.5 MG Tab PO SCH ×2 (08:01→20:11)
[2019-05-25] MEDS: Montelukast 10 MG Tab PO SCH (08:01)
[2019-05-25] MEDS: Allopurinol 100 MG Tab PO SCH (12:23)
[2019-05-25] MEDS: cefTRIAXone 1 GM Vial IVPUSH SCH (14:30)
[2019-05-25] MEDS: Azithromycin 500 MG in Sodium Chloride 0.9% 250 ML IV SCH (14:30)
[2019-05-25] MEDS: Folic Acid 1 MG Tab PO SCH (20:11)
[2019-05-25] MEDS: Cholecalciferol (Vitamin D3) 25 MCG Tab PO SCH (20:12)
[2019-05-25] MEDS: Simvastatin 20 MG Tab PO SCH (20:12)
[2019-05-25] MEDS: Zolpidem 5 MG Tab PO PRN (20:27)
[2019-05-26] MEDS: Montelukast 10 MG Tab PO SCH (07:27)
[2019-05-26] MEDS: Furosemide 40 MG/4 ML VIAL IVPUSH SCH (07:27)
[2019-05-26] MEDS: Albuterol 0.083% 2.5 MG/3 ML Neb Soln NEB SCH ×4 (07:27→19:42)
[2019-05-26] MEDS: Vitamin B Complex Cap PO SCH (07:28)
[2019-05-26] MEDS: methylPREDNISolone Sodium Succinate 125 MG/2 ML SDV IVPUSH SCH (07:28)
[2019-05-26] MEDS: Calcium Carbonate/Magnesium Oxide/Zinc Oxide Tab PO SCH (07:28)
[2019-05-26] MEDS: Psyllium Husk Powder Sugar Free 5.85 GM Packet PO SCH (07:28)
[2019-05-26] MEDS: Insulin Lispro 100 Units/ML 3 ML Vial SUBCUT SCH ×4 (07:47→20:08)
[2019-05-26] MEDS: Insulin Glargine,Human Rec. Analog 100 Units/ML 3 ML Pen SUBCUT SCH ×2 (07:47→19:46)
[2019-05-26] MEDS: Carvedilol 12.5 MG Tab PO SCH ×2 (07:48→19:41)
[2019-05-26] MEDS: Allopurinol 100 MG Tab PO SCH (11:30)
[2019-05-26] MEDS: cefTRIAXone 1 GM Vial IVPUSH SCH (14:26)
[2019-05-26] MEDS: Azithromycin 500 MG in Sodium Chloride 0.9% 250 ML IV SCH (14:26)
[2019-05-26] MEDS: Folic Acid 1 MG Tab PO SCH (19:41)
[2019-05-26] MEDS: Cholecalciferol (Vitamin D3) 25 MCG Tab PO SCH (19:42)
[2019-05-26] MEDS: Simvastatin 20 MG Tab PO SCH (19:42)
[2019-05-26] MEDS: Zolpidem 5 MG Tab PO PRN (20:31)
[2019-05-27] MEDS: Calcium Carbonate/Magnesium Oxide/Zinc Oxide Tab PO SCH (07:35)
[2019-05-27] MEDS: Albuterol 0.083% 2.5 MG/3 ML Neb Soln NEB SCH ×4 (07:35→19:39)
[2019-05-27] MEDS: methylPREDNISolone Sodium Succinate 125 MG/2 ML SDV IVPUSH SCH (07:35)
[2019-05-27] MEDS: Carvedilol 12.5 MG Tab PO SCH ×2 (07:36→19:39)
[2019-05-27] MEDS: Vitamin B Complex Cap PO SCH (07:36)
[2019-05-27] MEDS: Furosemide 40 MG/4 ML VIAL IVPUSH SCH (07:36)
[2019-05-27] MEDS: Montelukast 10 MG Tab PO SCH (07:36)
[2019-05-27] MEDS: Psyllium Husk Powder Sugar Free 5.85 GM Packet PO SCH (07:37)
[2019-05-27] MEDS: Insulin Lispro 100 Units/ML 3 ML Vial SUBCUT SCH ×4 (07:39→20:02)
[2019-05-27] MEDS: Insulin Glargine,Human Rec. Analog 100 Units/ML 3 ML Pen SUBCUT SCH ×2 (07:40→20:00)
[2019-05-27] MEDS: Allopurinol 100 MG Tab PO SCH (11:31)
[2019-05-27] MEDS: Azithromycin 500 MG in Sodium Chloride 0.9% 250 ML IV SCH (13:38)
[2019-05-27] MEDS: cefTRIAXone 1 GM Vial IVPUSH SCH (13:38)
[2019-05-27] MEDS ORDERED: Azithromycin 500 MG Vial ONE (13:45)
[2019-05-27] MEDS: Cholecalciferol (Vitamin D3) 25 MCG Tab PO SCH (19:39)
[2019-05-27] MEDS: Folic Acid 1 MG Tab PO SCH (19:39)
[2019-05-27] MEDS: Simvastatin 20 MG Tab PO SCH (19:40)
[2019-05-27] MEDS: Zolpidem 5 MG Tab PO PRN (20:05)
[2019-05-28] MEDS: Insulin Glargine,Human Rec. Analog 100 Units/ML 3 ML Pen SUBCUT SCH ×2 (07:43→20:48)
[2019-05-28] MEDS: methylPREDNISolone Sodium Succinate 125 MG/2 ML SDV IVPUSH SCH (07:45)
[2019-05-28] MEDS: Calcium Carbonate/Magnesium Oxide/Zinc Oxide Tab PO SCH (07:46)
[2019-05-28] MEDS: Vitamin B Complex Cap PO SCH (07:47)
[2019-05-28] MEDS: Carvedilol 12.5 MG Tab PO SCH ×2 (07:47→19:21)
[2019-05-28] MEDS: Albuterol 0.083% 2.5 MG/3 ML Neb Soln NEB SCH ×4 (07:47→19:21)
[2019-05-28] MEDS: Montelukast 10 MG Tab PO SCH (07:47)
[2019-05-28] MEDS: Psyllium Husk Powder Sugar Free 5.85 GM Packet PO SCH (07:47)
[2019-05-28] MEDS: Furosemide 40 MG/4 ML VIAL IVPUSH SCH (07:48)
[2019-05-28] MEDS: Insulin Lispro 100 Units/ML 3 ML Vial SUBCUT SCH ×4 (07:54→20:47)
--- NOTE | 2019-05-28 08:29 | PCM.PN ---
- General Info Date of Service: 05/28/19 Admission Dx/Problem (Free Text): Pneumonia Functional Status: Reports: Pain Controlled, Tolerating Diet, Ambulating - Review of Systems General: Reports: Weakness, Fatigue, Malaise HEENT: Reports: Rhinitis Pulmonary: Reports: Shortness of Breath, Cough Cardiovascular: Reports: Edema. Denies: Chest Pain, Lightheadedness Gastrointestinal: Denies: Abdominal Pain, Nausea, Vomiting Genitourinary: Reports: No Symptoms Musculoskeletal: Reports: No Symptoms Skin: Reports: No Symptoms Neurological: Reports: Weakness - Patient Data Vitals - Most Recent: Last Vital Signs Temp 96.7 F 05/28/19 07:39 Pulse 75 05/28/19 07:47 Resp 20 05/28/19 07:39 BP 145/82 H 05/28/19 07:47 Pulse Ox 94 L 05/28/19 07:39 Weight - Most Recent: 196 lb 9.6 oz Lab Results Last 24 Hours: Laboratory Results - last 24 hr 05/27/19 05/27/19 05/27/19 Range/Units 11:25 17:06 19:58 POC Glucose 168 H 170 H 235 H (75-105) mg/dl 05/28/19 05/28/19 Range/Units 06:41 07:42 POC Glucose 126 H 96 (75-105) mg/dl Med Orders - Current: Current Medications Acetaminophen (Tylenol) 650 mg PO Q4H PRN PRN Reason: Pain (Mild 1-3)/fever Last Admin: 05/26/19 00:59 Dose: 650 mg Albuterol (Proventil Neb Soln) 2.5 mg NEB QIDRT [facility] Last Admin: 05/28/19 07:47 Dose: 2.5 mg Albuterol (Proventil Neb Soln) 2.5 mg NEB Q4H PRN PRN Reason: Dyspnea Allopurinol (Zyloprim) 100 mg PO DAILY@1200 [facility] Last Admin: 05/27/19 11:31 Dose: 100 mg Calcium/Magnesium/Zinc (Calcium & Magnesium Plus Zinc) 2 tab PO DAILY [facility] Last Admin: 05/28/19 07:46 Dose: 2 tab Carvedilol (Coreg) 12.5 mg PO BID [facility] Last Admin: 05/28/19 07:47 Dose: 12.5 mg Ceftriaxone Sodium (Rocephin) 1 gm IVPUSH Q24H [facility] Last Admin: 05/27/19 13:38 Dose: 1 gm Cholecalciferol (Vitamin D3) 50 mcg PO BEDTIME [facility] Last Admin: 05/27/19 19:39 Dose: 50 mcg Folic Acid (Folic Acid) 0.5 mg PO BEDTIME [facility] Last Admin: 05/27/19 19:39 Dose: 0.5 mg Furosemide (Lasix) 40 mg IVPUSH Q24H [facility] Last Admin: 05/28/19 07:48 Dose: 40 mg Azithromycin 500 mg/ Sodium (Chloride) 250 mls @ 250 mls/hr IV Q24H [facility] Last Admin: 05/27/19 13:38 Dose: 250 mls/hr Insulin Glargine (Lantus Solostar) 8 units SUBCUT BID [facility] Last Admin: 05/28/19 07:43 Dose: 8 unit Insulin Human Lispro (Humalog) 0 unit SUBCUT WITHMEALSANDBED [facility]; Protocol Last Admin: 05/28/19 07:54 Dose: Not Given Methylprednisolone Sodium Succinate (Solu-Medrol) 62.5 mg IVPUSH DAILY [facility] Last Admin: 05/28/19 07:45 Dose: 62.5 mg Montelukast Sodium (Singulair) 10 mg PO DAILY [facility] Last Admin: 05/28/19 07:47 Dose: 10 mg Ondansetron HCl (Zofran Odt) 4 mg PO Q4H PRN PRN Reason: nausea, able to take PO Ondansetron HCl (Zofran) 4 mg IV Q4H PRN PRN Reason: Nausea/Vomiting Psyllium Husk (Metamucil Sugar Free) 1 pkt PO DAILY [facility] Last Admin: 05/28/19 07:47 Dose: 1 pkt Simvastatin (Zocor) 20 mg PO BEDTIME [facility] Last Admin: 05/27/19 19:40 Dose: 20 mg Sodium Chloride (Saline Flush) 10 ml FLUSH ASDIRECTED PRN PRN Reason: Keep Vein Open Sodium Chloride (Saline Flush) 10 ml FLUSH ASDIRECTED PRN PRN Reason: Keep Vein Open Vitamin B Complex (Vitamin B Complex) 1 each PO DAILY [facility] Last Admin: 05/28/19 07:47 Dose: 1 each Warfarin Sodium (Coumadin) 1 mg PO SuTuWeThFrSa@1200 [facility] Last Admin: 05/27/19 11:32 Dose: 1 mg Warfarin Sodium (Coumadin) 2 mg PO Mo@1200 [facility] Last Admin: 05/24/19 11:34 Dose: 2 mg Zolpidem Tartrate (Ambien) 10 mg PO BEDTIME PRN PRN Reason: Insomnia Last Admin: 05/27/19 20:05 Dose: 10 mg Discontinued Medications Azithromycin (Zithromax) Confirm Administered Dose 500 mg .ROUTE .STK-MED ONE Stop: 05/27/19 13:46 Last Admin: 05/27/19 13:47 Dose: Not Given Methylprednisolone Sodium Succinate (Solu-Medrol) 62.5 mg IVPUSH Q24H [facility] Methylprednisolone Sodium Succinate (Solu-Medrol) 62.5 mg IVPUSH Q12H [facility] Last Admin: 05/25/19 08:00 Dose: 62.5 mg Phytonadione (Aquamephyton) 1 mg SUBCUT ONETIME ONE Stop: 05/21/19 13:03 Last Admin: 05/21/19 16:35 Dose: 1 mg Phytonadione (Aquamephyton) Confirm Administered Dose 10 mg .ROUTE .STK-MED ONE Stop: 05/21/19 16:41 Last Admin: 05/21/19 16:45 Dose: Not Given - Exam General: Alert, Oriented HEENT: Mucous Membr. Moist/[place] Neck: Supple Lungs: Decreased Breath Sounds, Rhonchi Cardiovascular: Regular Rate, Regular Rhythm GI/Abdominal Exam: Normal Bowel Sounds, Soft, Non-Tender Extremities: Normal Inspection, Pedal Edema (trace) Skin: Warm, Dry Neurological: No New Focal Deficit Sepsis Event Note - Evaluation Sepsis Screening Result: No Definite Risk - Focused Exam Vital Signs: Vital Signs Temp Pulse Pulse Resp BP BP Pulse Ox 05/28/19 07:47 75 145/82 H 05/28/19 07:39 96.7 F 75 20 145/82 H 94 L Date Exam was Performed: 05/28/19 Time Exam was Performed: 08:25 - Problem List & Annotations (1) General weakness SNOMED Code(s): 27070218 Code(s): R53.1 - WEAKNESS Status: Acute Priority: High Current Visit: Yes (2) Pneumonia SNOMED Code(s): 769969162 Code(s): J18.9 - PNEUMONIA, UNSPECIFIED ORGANISM Status: Acute Priority: High Current Visit: Yes Qualifiers: Pneumonia type: due to other aerobic Gram-negative bacteria Laterality: bilateral Lung location: lower lobe of lung Qualified Code(s): J15.6 - Pneumonia due to other Gram-negative bacteria (3) Respiratory distress SNOMED Code(s): 677731486 Code(s): R06.03 - ACUTE RESPIRATORY DISTRESS Status: Acute Priority: High Current Visit: Yes - Problem List Review Problem List Initiated/Reviewed/Updated: Yes - Assessment Assessment:: bilateral Pneumonia weakness respiratory distress - Plan Plan:: Patient continues to feel weak, short of breath. States gets very winded with ambulation/activity. Oxygen sats do drop with activity, maintain at rest. While in the shower, does stay around 90-92%. Physical therapy does feel he is getting stronger. Lung sounds still continue with rhonchi throughout, diminished. Labs have stabilized this week, last CRP 1. Will continue with IV antibiotics, steroids and nebs over the weekend.j Possible discharge home on Friday
[2019-05-28] MEDS ORDERED: Oxyquinoline/Emollient 0.3% Oint 1 OZ Canister TOP PRN (09:02)
[2019-05-28] MEDS ORDERED: Oxyquinoline/Emollient 0.3% Oint 1 OZ Canister ONE (09:15)
[2019-05-28] MEDS: Allopurinol 100 MG Tab PO SCH (11:20)
[2019-05-28] MEDS: cefTRIAXone 1 GM Vial IVPUSH SCH (13:38)
[2019-05-28] MEDS: Azithromycin 500 MG in Sodium Chloride 0.9% 250 ML IV SCH (13:38)
[2019-05-28] MEDS: Simvastatin 20 MG Tab PO SCH (19:21)
[2019-05-28] MEDS: Cholecalciferol (Vitamin D3) 25 MCG Tab PO SCH (19:21)
[2019-05-28] MEDS: Folic Acid 1 MG Tab PO SCH (19:21)
[2019-05-28] MEDS: Zolpidem 5 MG Tab PO PRN (19:22)
[2019-05-29] MEDS: Albuterol 0.083% 2.5 MG/3 ML Neb Soln NEB SCH ×4 (07:32→19:50)
[2019-05-29] MEDS: Psyllium Husk Powder Sugar Free 5.85 GM Packet PO SCH (07:32)
[2019-05-29] MEDS: Calcium Carbonate/Magnesium Oxide/Zinc Oxide Tab PO SCH (07:32)
[2019-05-29] MEDS: Furosemide 40 MG/4 ML VIAL IVPUSH SCH (07:33)
[2019-05-29] MEDS: Carvedilol 12.5 MG Tab PO SCH ×2 (07:33→19:48)
[2019-05-29] MEDS: methylPREDNISolone Sodium Succinate 125 MG/2 ML SDV IVPUSH SCH (07:33)
[2019-05-29] MEDS: Vitamin B Complex Cap PO SCH (07:33)
[2019-05-29] MEDS: Insulin Glargine,Human Rec. Analog 100 Units/ML 3 ML Pen SUBCUT SCH ×2 (07:49→19:49)
[2019-05-29] MEDS: Insulin Lispro 100 Units/ML 3 ML Vial SUBCUT SCH ×4 (07:49→20:01)
[2019-05-29] MEDS: Montelukast 10 MG Tab PO SCH (09:05)
[2019-05-29] MEDS: Allopurinol 100 MG Tab PO SCH (11:26)
[2019-05-29] MEDS: Azithromycin 500 MG in Sodium Chloride 0.9% 250 ML IV SCH (14:27)
[2019-05-29] MEDS: cefTRIAXone 1 GM Vial IVPUSH SCH (14:27)
[2019-05-29] MEDS: Cholecalciferol (Vitamin D3) 25 MCG Tab PO SCH (19:48)
[2019-05-29] MEDS: Folic Acid 1 MG Tab PO SCH (19:48)
[2019-05-29] MEDS: Simvastatin 20 MG Tab PO SCH (19:48)
[2019-05-29] MEDS: Zolpidem 5 MG Tab PO PRN (20:04)
[2019-05-30 07:34] LABS: CHLORIDE,CL 106 mEq/L (98-106); SODIUM,NA 142 mEq/L (136-145)
[2019-05-30] MEDS: Psyllium Husk Powder Sugar Free 5.85 GM Packet PO SCH (07:53)
[2019-05-30] MEDS: methylPREDNISolone Sodium Succinate 125 MG/2 ML SDV IVPUSH SCH (07:53)
[2019-05-30] MEDS: Furosemide 40 MG/4 ML VIAL IVPUSH SCH (07:53)
[2019-05-30] MEDS: Calcium Carbonate/Magnesium Oxide/Zinc Oxide Tab PO SCH (07:54)
[2019-05-30] MEDS: Montelukast 10 MG Tab PO SCH (07:54)
[2019-05-30] MEDS: Carvedilol 12.5 MG Tab PO SCH ×2 (07:55→20:01)
[2019-05-30] MEDS: Albuterol 0.083% 2.5 MG/3 ML Neb Soln NEB SCH ×4 (07:55→20:02)
[2019-05-30] MEDS: Vitamin B Complex Cap PO SCH (07:55)
[2019-05-30] MEDS: Insulin Lispro 100 Units/ML 3 ML Vial SUBCUT SCH ×4 (07:57→20:07)
[2019-05-30] MEDS: Insulin Glargine,Human Rec. Analog 100 Units/ML 3 ML Pen SUBCUT SCH ×2 (07:58→20:07)
--- NOTE | 2019-05-30 10:56 | PCM.PN ---
- General Info Date of Service: 05/30/19 Functional Status: Reports: Pain Controlled, Tolerating Diet, Ambulating (out to the desk without any issue), Urinating - Review of Systems General: Reports: No Symptoms. Denies: Fever HEENT: Reports: No Symptoms Pulmonary: Reports: Cough (but, improved. ). Denies: Sputum, Hemoptysis ( mornings, but not the last couple of days) Cardiovascular: Reports: No Symptoms Gastrointestinal: Reports: No Symptoms Genitourinary: Reports: No Symptoms Musculoskeletal: Reports: No Symptoms Skin: Reports: No Symptoms Neurological: Reports: No Symptoms Psychiatric: Reports: No Symptoms - Patient Data Vitals - Most Recent: Last Vital Signs Temp 97.1 F 05/30/19 08:00 Pulse 77 05/30/19 08:00 Resp 20 05/30/19 08:00 BP 147/70 H 05/30/19 08:00 Pulse Ox 95 05/30/19 08:00 Weight - Most Recent: 196 lb 9.6 oz Lab Results Last 24 Hours: Laboratory Results - last 24 hr 05/29/19 05/29/19 05/29/19 Range/Units 11:24 16:55 19:45 WBC (5.0-10.0) 10^3/uL RBC (4.50-6.00) 10^6/uL Hgb (14.0-18.0) g/dL Hct (40.0-54.0) % MCV (82.0-94.0) fL MCH (27.0-32.0) pg MCHC (33.0-38.0) g/dL RDW Coeff of Brooke (11.0-15.0) % Plt Count (150-400) 10^3/uL Add Manual Diff Neutrophils % (Manual) (35-85) % Band Neutrophils % (0-5) % Lymphocytes % (Manual) (21-55) % Monocytes % (Manual) (2-12) % Absolute Neutrophils (1.80-7.00) 10^3/uL Lymphocytes # (Manual) (1.00-4.80) 10^3/uL Monocytes # (Manual) (0.00-0.80) 10^3/uL Platelet Estimate (ADEQUATE) PT (9.7-12.3) SEC INR (0.92-1.18) Sodium (136-145) mEq/L Potassium (3.5-5.0) mEq/L Chloride (98-106) mEq/L Carbon Dioxide (21-32) mmol/L BUN (7-18) mg/dL Creatinine (0.7-1.3) mg/dL Est Cr Clr Drug Dosing mL/min Estimated GFR (MDRD) (>=60) mL/min Glucose (75-99) mg/dL POC Glucose 166 H 163 H 409 H* (75-105) mg/dl Lactic Acid (0.4-2.0) mmol/L Calcium (8.4-10.1) mg/dL C-Reactive Protein (0.2-0.8) mg/dL 05/30/19 05/30/19 05/30/19 Range/Units 07:15 07:15 07:15 WBC 21.3 H* (5.0-10.0) 10^3/uL RBC 4.65 (4.50-6.00) 10^6/uL Hgb 15.0 (14.0-18.0) g/dL Hct 44.9 (40.0-54.0) % MCV 96.6 H (82.0-94.0) fL MCH 32.3 H (27.0-32.0) pg MCHC 33.4 (33.0-38.0) g/dL RDW Coeff of Brooke 14.6 (11.0-15.0) % Plt Count 253 (150-400) 10^3/uL Add Manual Diff Yes Neutrophils % (Manual) 88 H (35-85) % Band Neutrophils % 1 (0-5) % Lymphocytes % (Manual) 5 L (21-55) % Monocytes % (Manual) 6 (2-12) % Absolute Neutrophils 18.96 H (1.80-7.00) 10^3/uL Lymphocytes # (Manual) 1.07 (1.00-4.80) 10^3/uL Monocytes # (Manual) 1.28 H (0.00-0.80) 10^3/uL Platelet Estimate Adequate (ADEQUATE) PT 24.6 H (9.7-12.3) SEC INR 2.52 H (0.92-1.18) Sodium 142 (136-145) mEq/L Potassium 4.9 D (3.5-5.0) mEq/L Chloride 106 (98-106) mEq/L Carbon Dioxide 31 (21-32) mmol/L BUN 50 H (7-18) mg/dL Creatinine 1.4 H (0.7-1.3) mg/dL Est Cr Clr Drug Dosing 34.75 mL/min Estimated GFR (MDRD) 48 L (>=60) mL/min Glucose 187 H (75-99) mg/dL POC Glucose (75-105) mg/dl Lactic Acid (0.4-2.0) mmol/L Calcium 7.8 L (8.4-10.1) mg/dL C-Reactive Protein < 0.2 L (0.2-0.8) mg/dL 05/30/19 05/30/19 Range/Units 07:15 07:57 WBC (5.0-10.0) 10^3/uL RBC (4.50-6.00) 10^6/uL Hgb (14.0-18.0) g/dL Hct (40.0-54.0) % MCV (82.0-94.0) fL MCH (27.0-32.0) pg MCHC (33.0-38.0) g/dL RDW Coeff of Brooke (11.0-15.0) % Plt Count (150-400) 10^3/uL Add Manual Diff Neutrophils % (Manual) (35-85) % Band Neutrophils % (0-5) % Lymphocytes % (Manual) (21-55) % Monocytes % (Manual) (2-12) % Absolute Neutrophils (1.80-7.00) 10^3/uL Lymphocytes # (Manual) (1.00-4.80) 10^3/uL Monocytes # (Manual) (0.00-0.80) 10^3/uL Platelet Estimate (ADEQUATE) PT (9.7-12.3) SEC INR (0.92-1.18) Sodium (136-145) mEq/L Potassium (3.5-5.0) mEq/L Chloride (98-106) mEq/L Carbon Dioxide (21-32) mmol/L BUN (7-18) mg/dL Creatinine (0.7-1.3) mg/dL Est Cr Clr Drug Dosing mL/min Estimated GFR (MDRD) (>=60) mL/min Glucose (75-99) mg/dL POC Glucose 137 H (75-105) mg/dl Lactic Acid 2.5 H (0.4-2.0) mmol/L Calcium (8.4-10.1) mg/dL C-Reactive Protein (0.2-0.8) mg/dL Med Orders - Current: Current Medications Acetaminophen (Tylenol) 650 mg PO Q4H PRN PRN Reason: Pain (Mild 1-3)/fever Last Admin: 05/26/19 00:59 Dose: 650 mg Albuterol (Proventil Neb Soln) 2.5 mg NEB QIDRT [facility] Last Admin: 05/30/19 07:55 Dose: 2.5 mg Albuterol (Proventil Neb Soln) 2.5 mg NEB Q4H PRN PRN Reason: Dyspnea Allopurinol (Zyloprim) 100 mg PO DAILY@1200 [facility] Last Admin: 05/29/19 11:26 Dose: 100 mg Calcium/Magnesium/Zinc (Calcium & Magnesium Plus Zinc) 2 tab PO DAILY [facility] Last Admin: 05/30/19 07:54 Dose: 2 tab Carvedilol (Coreg) 12.5 mg PO BID [facility] Last Admin: 05/30/19 07:55 Dose: 12.5 mg Ceftriaxone Sodium (Rocephin) 1 gm IVPUSH Q24H [facility] Last Admin: 05/29/19 14:27 Dose: 1 gm Cholecalciferol (Vitamin D3) 50 mcg PO BEDTIME [facility] Last Admin: 05/29/19 19:48 Dose: 50 mcg Folic Acid (Folic Acid) 0.5 mg PO BEDTIME [facility] Last Admin: 05/29/19 19:48 Dose: 0.5 mg Furosemide (Lasix) 40 mg IVPUSH Q24H [facility] Last Admin: 05/30/19 07:53 Dose: 40 mg Azithromycin 500 mg/ Sodium (Chloride) 250 mls @ 250 mls/hr IV Q24H [facility] Last Admin: 05/29/19 14:27 Dose: 250 mls/hr Insulin Glargine (Lantus Solostar) 8 units SUBCUT BID [facility] Last Admin: 05/30/19 07:58 Dose: 8 unit Insulin Human Lispro (Humalog) 0 unit SUBCUT WITHMEALSANDBED [facility]; Protocol Last Admin: 05/30/19 07:57 Dose: Not Given Methylprednisolone Sodium Succinate (Solu-Medrol) 62.5 mg IVPUSH DAILY [facility] Last Admin: 05/30/19 07:53 Dose: 62.5 mg Montelukast Sodium (Singulair) 10 mg PO DAILY [facility] Last Admin: 05/30/19 07:54 Dose: 10 mg Ondansetron HCl (Zofran Odt) 4 mg PO Q4H PRN PRN Reason: nausea, able to take PO Ondansetron HCl (Zofran) 4 mg IV Q4H PRN PRN Reason: Nausea/Vomiting Oxyquinoline Sulfate (Bag Irving Oint) 1 oz TOP ASDIRECTED PRN PRN Reason: Rash Psyllium Husk (Metamucil Sugar Free) 1 pkt PO DAILY [facility] Last Admin: 05/30/19 07:53 Dose: 1 pkt Simvastatin (Zocor) 20 mg PO BEDTIME [facility] Last Admin: 05/29/19 19:48 Dose: 20 mg Sodium Chloride (Saline Flush) 10 ml FLUSH ASDIRECTED PRN PRN Reason: Keep Vein Open Sodium Chloride (Saline Flush) 10 ml FLUSH ASDIRECTED PRN PRN Reason: Keep Vein Open Vitamin B Complex (Vitamin B Complex) 1 each PO DAILY [facility] Last Admin: 05/30/19 07:55 Dose: 1 each Warfarin Sodium (Coumadin) 1 mg PO SuTuWeThFrSa@1200 [facility] Last Admin: 05/29/19 11:59 Dose: 1 mg Warfarin Sodium (Coumadin) 2 mg PO Mo@1200 [facility] Last Admin: 05/24/19 11:34 Dose: 2 mg Zolpidem Tartrate (Ambien) 10 mg PO BEDTIME PRN PRN Reason: Insomnia Last Admin: 05/29/19 20:04 Dose: 10 mg Discontinued Medications Azithromycin (Zithromax) Confirm Administered Dose 500 mg .ROUTE .STK-MED ONE Stop: 05/27/19 13:46 Last Admin: 05/27/19 13:47 Dose: Not Given Methylprednisolone Sodium Succinate (Solu-Medrol) 62.5 mg IVPUSH Q24H [facility] Methylprednisolone Sodium Succinate (Solu-Medrol) 62.5 mg IVPUSH Q12H [facility] Last Admin: 05/25/19 08:00 Dose: 62.5 mg Oxyquinoline Sulfate (Bag Irving Oint) Confirm Administered Dose 1 oz .ROUTE .STK- MED ONE Stop: 05/28/19 09:16 Last Admin: 05/28/19 09:43 Dose: Not Given Phytonadione (Aquamephyton) 1 mg SUBCUT ONETIME ONE Stop: 05/21/19 13:03 Last Admin: 05/21/19 16:35 Dose: 1 mg Phytonadione (Aquamephyton) Confirm Administered Dose 10 mg .ROUTE .STK-MED ONE Stop: 05/21/19 16:41 Last Admin: 05/21/19 16:45 Dose: Not Given - Exam Quality Assessment: No: Supplemental Oxygen (RA 95% sitting, with 91% RA ambulating. ) General: Alert, Oriented, Cooperative, No Acute Distress Lungs: Crackles (RLL), Rhonchi (moderately throughout) Cardiovascular: Regular Rate, Regular Rhythm, Murmurs Extremities: Normal Inspection, Pedal Edema (+3 per RN. Has teds on: [place]. ) Peripheral Pulses: 2+: Radial (L), Radial (R) Skin: Warm, Dry, Intact Psy/Mental Status: Alert, Normal Affect, Normal Mood Sepsis Event Note - Evaluation Sepsis Screening Result: No Definite Risk - Focused Exam Vital Signs: Vital Signs Temp Pulse Pulse Resp BP BP Pulse Ox 05/30/19 08:00 97.1 F 77 20 147/70 H 95 05/30/19 07:55 77 147/70 H Date Exam was Performed: 05/30/19 Time Exam was Performed: 10:44 - Problem List Review Problem List Initiated/Reviewed/Updated: Yes - My Orders Last 24 Hours: My Active Orders 05/30/19 05:00 Chest 2V [CR] Routine CULTURE SPUTUM + SMEAR [RM] Routine - Assessment Assessment:: bilateral Pneumonia weakness respiratory distress - Plan Plan:: Patient continues to feel weak, short of breath. States gets very winded with ambulation/activity. Oxygen sats do drop with activity, maintain at rest. While in the shower, does stay around 90-92%. Physical therapy does feel he is getting stronger. Lung sounds still continue with rhonchi throughout, diminished. Labs have stabilized this week, last CRP 1. Will continue with IV antibiotics, steroids and nebs over the weekend.j Possible discharge home on Friday05/30/2019 1000 I got asked by RN from night warehouse selector to round on this patient. She felt the patient had no/minimal improvement from admit. I ordered labs on this patient and saw this patient today. The patient labs today were wbc 21. Although, the patient is on steroids and this could be a contributor. Lactic is up, but the CRP is normal. The patient clinical I feel looks very good compared to previous record physical exam. He is moving good air throughout in lungs, does have some rhonchi and crackles. Patient though is ambulating through the halls of [facility] , does not appear to be short of breath. He reports he is feeling better today. I have ordered a CXR for this patient for comparison. PCP will see tomorrow and review the CXR. I agree, if the CXR has not worsened, showing resolution, based on patient clinical presentation, could go home as early as tomorrow. However, this is the decision of the PCP on patient clinical presentation tomorrow and CXR results.
[2019-05-30] MEDS: Allopurinol 100 MG Tab PO SCH (11:43)
[2019-05-30] MEDS: Azithromycin 500 MG in Sodium Chloride 0.9% 250 ML IV SCH (13:41)
[2019-05-30] MEDS: cefTRIAXone 1 GM Vial IVPUSH SCH (13:41)
--- NOTE | 2019-05-30 17:38 | PCM.SN ---
- Free Text/Narrative Note: Reviewed patient xray and radiology impression. No seen infiltrates. Infiltrates compared to previous have resolved. I discussed this result with patient. I believe this patient will be discharged tomorrow.
[2019-05-30] MEDS: Simvastatin 20 MG Tab PO SCH (20:01)
[2019-05-30] MEDS: Folic Acid 1 MG Tab PO SCH (20:01)
[2019-05-30] MEDS: Cholecalciferol (Vitamin D3) 25 MCG Tab PO SCH (20:01)
[2019-05-30] MEDS: Zolpidem 5 MG Tab PO PRN (20:14)
[2019-05-31] MEDS: Albuterol 0.083% 2.5 MG/3 ML Neb Soln NEB SCH (07:51)
[2019-05-31] MEDS: methylPREDNISolone Sodium Succinate 125 MG/2 ML SDV IVPUSH SCH (07:52)
[2019-05-31] MEDS: Psyllium Husk Powder Sugar Free 5.85 GM Packet PO SCH (07:52)
[2019-05-31] MEDS: Calcium Carbonate/Magnesium Oxide/Zinc Oxide Tab PO SCH (07:55)
[2019-05-31] MEDS: Vitamin B Complex Cap PO SCH (07:55)
[2019-05-31] MEDS: Carvedilol 12.5 MG Tab PO SCH (07:55)
[2019-05-31] MEDS: Montelukast 10 MG Tab PO SCH (07:55)
[2019-05-31 07:56] VITALS: BP 146/78; PULSE 79
[2019-05-31] MEDS: Furosemide 40 MG/4 ML VIAL IVPUSH SCH (07:56)
[2019-05-31] MEDS: Insulin Lispro 100 Units/ML 3 ML Vial SUBCUT SCH (08:00)
[2019-05-31] MEDS: Insulin Glargine,Human Rec. Analog 100 Units/ML 3 ML Pen SUBCUT SCH (08:01)
--- NOTE | 2019-05-31 09:22 | PCM.DCSUM1 ---
Discharge Summary - Hospital Course Free Text/Narrative:: Patient initially presented to ER with shortness of breath. Lung sounds were noted to diminished, crackles and wheezing. Hypoxic on room air. Complained of cold symptoms for a few days that have progressively gotten worse. Unaware of any fevers. Labs noted elevated WBC, CRP of 55. Chest xray showed right upper/mid lobe infiltrate. Admitted and started on IV antibiotics, steroids and nebs. Oxygen to keep sats greater than 90%. Required 4 liters on admit. Had slow improvement over acute inpatient stay. Did develop hemopysis. Sputum was collected which was negative. CT scan of chest was done, bilateral lower lobe and right upper lobe pneumonia. Labs slowly improved, increased ambulation for short distances. Continued to require oxygen. Transferred to swing bed for ongoing IV antibiotics and therapy for strengthening. Diagnosis: Stroke: No Modified Shobha Scale: No Symptoms at All Modified Shobha Scale Score: 0 - Discharge Data Discharge Date: 05/31/19 Discharge Disposition: Home, Self-Care 01 Condition: Fair - Referral to Home Health Primary Care Physician: Dante Da Silva MD - Discharge Diagnosis/Problem(s) (1) General weakness SNOMED Code(s): 85610781 ICD Code: R53.1 - WEAKNESS Status: Acute Priority: High (2) Pneumonia SNOMED Code(s): 261171860 ICD Code: J18.9 - PNEUMONIA, UNSPECIFIED ORGANISM Status: Acute Priority : High Qualifiers: Pneumonia type: due to other aerobic Gram-negative bacteria Laterality: bilateral Lung location: lower lobe of lung Qualified Code(s): J15.6 - Pneumonia due to other Gram-negative bacteria (3) Respiratory distress SNOMED Code(s): 609715526 ICD Code: R06.03 - ACUTE RESPIRATORY DISTRESS Status: Acute Priority: High - Patient Summary/Data Complications: none Consults: Consultations 05/24/19 09:17 Consult to Physical Therapy [PT Evaluation and Treatment] [CONS] Routine Hospital Course: Veronica is showing improvement today. Tolerating activity much better today than with last exam on Friday. Lung sounds note rhonchi yet but much better air exchange. Is ambulating in the halls without oxygen. Feels stronger. Has been sleeping better the last 2 nights. Had labs and a repeat xray yesterday as had a bout of difficulty breathing this weekend. Chest xray shows improvement from admission. CRP negative. Will discharge home, continue duonebs and usual meds. - Patient Instructions Diet: Diabetic Diet Activity: As Tolerated - Discharge Plan *PRESCRIPTION DRUG MONITORING PROGRAM REVIEWED*: No *COPY OF PRESCRIPTION DRUG MONITORING REPORT IN PATIENT ADRIENNE: No Prescriptions/Med Rec: Albuterol/Ipratropium [DuoNeb 3.0-0.5 MG/3 ML] 3 ml INH QID #1 box Home Medications: Home Meds Ascorbate Calcium [Vitamin C] 500 mg PO DAILY 12/20/13 [History] Calcium Carb/Mag Ox/Zinc Gluc [Tvhjeds-Ybumlgagl-Imlj] 2 each PO DAILY 12/20/13 [History] Cholecalciferol (Vitamin D3) [Vitamin D3] 2,000 unit PO BEDTIME 12/20/13 [ History] Folic Acid 0.4 mg PO BEDTIME 12/20/13 [History] Psyllium Seed/Aspartame [Metamucil Powder] 1 tbsp PO DAILY 12/20/13 [History] Zolpidem [Ambien] 2 tab PO BEDTIME PRN 12/20/13 [History] carvediloL [Carvedilol] 12.5 mg PO BID 12/20/13 [History] Vitamin B Complex [B Complex] 1 tab PO DAILY 11/22/15 [History] Simvastatin [Zocor] 20 mg PO BEDTIME tablet 11/25/15 [Rx] Insulin Detemir [Levemir] 8 units SQ WITHBREAKFAST 08/27/16 [History] Furosemide 20 mg PO 1200 08/28/16 [History] Furosemide 20 mg PO WITHBREAKFAST 08/28/16 [History] Insulin Detemir [Levemir Flextouch] 8 unit SUBCUT BEDTIME 08/28/16 [History] Spironolactone [Aldactone] 12.5 mg PO 1200 12/30/16 [History] Montelukast Sodium 10 mg PO DAILY 05/05/17 [History] Warfarin [Coumadin] 1 mg PO SUTUWETHFRSA 05/05/17 [History] Warfarin [Coumadin] 2 mg PO MO 05/18/19 [History] allopurinoL [Zyloprim] 100 mg PO 1200 05/18/19 [History] Albuterol/Ipratropium [DuoNeb 3.0-0.5 MG/3 ML] 3 ml INH QID #1 box 05/31/19 [Rx] Referrals: Cathy Mckeon PA [ED Midlevel Provider] - (Follow up with Geovanna in [place] next week) - Discharge Summary/Plan Comment DC Time >30 min.: No - General Info Date of Service: 06/02/19 Admission Dx/Problem (Free Text: Pneumonia Functional Status: Reports: Pain Controlled, Tolerating Diet, Ambulating - Review of Systems General: Reports: Weakness, Fatigue HEENT: Reports: Rhinitis Pulmonary: Reports: Shortness of Breath, Cough, Wheezing Cardiovascular: Denies: Chest Pain, Edema, Lightheadedness Gastrointestinal: Reports: No Symptoms Genitourinary: Reports: No Symptoms Musculoskeletal: Reports: No Symptoms Skin: Reports: No Symptoms Neurological: Reports: Weakness - Patient Data Vitals - Most Recent: Last Vital Signs Temp 96.6 F 05/31/19 08:00 Pulse 79 05/31/19 08:00 Resp 18 05/31/19 08:00 BP 146/78 H 05/31/19 08:00 Pulse Ox 99 05/31/19 08:00 Weight - Most Recent: 196 lb 9.6 oz Lab Results - Last 24 hrs: Laboratory Results - last 24 hr 05/30/19 05/30/19 05/30/19 Range/Units 11:41 17:01 20:04 POC Glucose 178 H 168 H 353 H (75-105) mg/dl 05/31/19 Range/Units 07:40 POC Glucose 101 (75-105) mg/dl Med Orders - Current: Current Medications Acetaminophen (Tylenol) 650 mg PO Q4H PRN PRN Reason: Pain (Mild 1-3)/fever Last Admin: 05/26/19 00:59 Dose: 650 mg Albuterol (Proventil Neb Soln) 2.5 mg NEB QIDRT [facility] Last Admin: 05/31/19 07:51 Dose: 2.5 mg Albuterol (Proventil Neb Soln) 2.5 mg NEB Q4H PRN PRN Reason: Dyspnea Allopurinol (Zyloprim) 100 mg PO DAILY@1200 [facility] Last Admin: 05/30/19 11:43 Dose: 100 mg Calcium/Magnesium/Zinc (Calcium & Magnesium Plus Zinc) 2 tab PO DAILY [facility] Last Admin: 05/31/19 07:55 Dose: 2 tab Carvedilol (Coreg) 12.5 mg PO BID [facility] Last Admin: 05/31/19 07:55 Dose: 12.5 mg Ceftriaxone Sodium (Rocephin) 1 gm IVPUSH Q24H [facility] Last Admin: 05/30/19 13:41 Dose: 1 gm Cholecalciferol (Vitamin D3) 50 mcg PO BEDTIME [facility] Last Admin: 05/30/19 20:01 Dose: 50 mcg Folic Acid (Folic Acid) 0.5 mg PO BEDTIME [facility] Last Admin: 05/30/19 20:01 Dose: 0.5 mg Furosemide (Lasix) 40 mg IVPUSH Q24H [facility] Last Admin: 05/31/19 07:56 Dose: 40 mg Azithromycin 500 mg/ Sodium (Chloride) 250 mls @ 250 mls/hr IV Q24H [facility] Last Admin: 05/30/19 13:41 Dose: 250 mls/hr Insulin Glargine (Lantus Solostar) 8 units SUBCUT BID [facility] Last Admin: 05/31/19 08:01 Dose: 8 unit Insulin Human Lispro (Humalog) 0 unit SUBCUT WITHMEALSANDBED [facility]; Protocol Last Admin: 05/31/19 08:00 Dose: Not Given Methylprednisolone Sodium Succinate (Solu-Medrol) 62.5 mg IVPUSH DAILY [facility] Last Admin: 05/31/19 07:52 Dose: 62.5 mg Montelukast Sodium (Singulair) 10 mg PO DAILY [facility] Last Admin: 05/31/19 07:55 Dose: 10 mg Ondansetron HCl (Zofran Odt) 4 mg PO Q4H PRN PRN Reason: nausea, able to take PO Ondansetron HCl (Zofran) 4 mg IV Q4H PRN PRN Reason: Nausea/Vomiting Oxyquinoline Sulfate (Bag Devol Oint) 1 oz TOP ASDIRECTED PRN PRN Reason: Rash Psyllium Husk (Metamucil Sugar Free) 1 pkt PO DAILY [facility] Last Admin: 05/31/19 07:52 Dose: 1 pkt Simvastatin (Zocor) 20 mg PO BEDTIME [facility] Last Admin: 05/30/19 20:01 Dose: 20 mg Sodium Chloride (Saline Flush) 10 ml FLUSH ASDIRECTED PRN PRN Reason: Keep Vein Open Sodium Chloride (Saline Flush) 10 ml FLUSH ASDIRECTED PRN PRN Reason: Keep Vein Open Vitamin B Complex (Vitamin B Complex) 1 each PO DAILY [facility] Last Admin: 05/31/19 07:55 Dose: 1 each Warfarin Sodium (Coumadin) 1 mg PO SuTuWeThFrSa@1200 [facility] Last Admin: 05/30/19 11:43 Dose: 1 mg Warfarin Sodium (Coumadin) 2 mg PO Mo@1200 [facility] Last Admin: 05/24/19 11:34 Dose: 2 mg Zolpidem Tartrate (Ambien) 10 mg PO BEDTIME PRN PRN Reason: Insomnia Last Admin: 05/30/19 20:14 Dose: 10 mg Discontinued Medications Azithromycin (Zithromax) Confirm Administered Dose 500 mg .ROUTE .STK-MED ONE Stop: 05/27/19 13:46 Last Admin: 05/27/19 13:47 Dose: Not Given Methylprednisolone Sodium Succinate (Solu-Medrol) 62.5 mg IVPUSH Q24H [facility] Methylprednisolone Sodium Succinate (Solu-Medrol) 62.5 mg IVPUSH Q12H [facility] Last Admin: 05/25/19 08:00 Dose: 62.5 mg Oxyquinoline Sulfate (Bag Devol Oint) Confirm Administered Dose 1 oz .ROUTE .STK- MED ONE Stop: 05/28/19 09:16 Last Admin: 05/28/19 09:43 Dose: Not Given Phytonadione (Aquamephyton) 1 mg SUBCUT ONETIME ONE Stop: 05/21/19 13:03 Last Admin: 05/21/19 16:35 Dose: 1 mg Phytonadione (Aquamephyton) Confirm Administered Dose 10 mg .ROUTE .STK-MED ONE Stop: 05/21/19 16:41 Last Admin: 05/21/19 16:45 Dose: Not Given - Exam General: Reports: Alert, Oriented HEENT: Reports: Mucous Membr. Moist/[place] Neck: Reports: Supple Lungs: Reports: Decreased Breath Sounds, Rhonchi Cardiovascular: Reports: Regular Rate, Regular Rhythm GI/Abdominal Exam: Normal Bowel Sounds, Soft, Non-Tender Extremities: Normal Inspection, No Pedal Edema Skin: Reports: Warm, Dry Neurological: Reports: No New Focal Deficit
== END 2019-05-31 10:20 | disposition home or self-care (01) | DRG 177 ==
LOC: CC.MS 08:52 → UNDOADMIN 10:52
PROVIDERS: ADMIT Family Medicine; ATTEND Family Medicine
DX: J15.6 Pneumonia due to other Gram-negative bacteria (principal); I50.23 Acute on chronic systolic (congestive) heart failure; R04.2 Hemoptysis; R06.03 Acute respiratory distress; R53.1 Weakness; E11.9 Type 2 diabetes mellitus without complications; Z51.5 Encounter for palliative care; Z79.01 Long term (current) use of anticoagulants; Z79.51 Long term (current) use of inhaled steroids; Z79.4 Long term (current) use of insulin; Z79.899 Other long term (current) drug therapy; Z99.81 Dependence on supplemental oxygen
CPT/HCPCS: 36415; 71046; 80048; 82962; 83605; 83880; 85025; 85610; 86140; 87070; 87077; 87186; 87205; 94640; 97110-GP; 97161-GP; A9270-GY; J0456; J0696; J1815-GY; J1940; J2930; J3430; J7050; J7613-GY

== ENCOUNTER 2021-05-22 08:29 | Inpatient (IN) | payer MEDICARE, BC ==
[~2021-05-22 08:29] MED LIST: Albuterol/Ipratropium 3.0-0.5 MG/3 ML Neb Soln ONE
[2021-05-22] MEDS ORDERED: Albuterol/Ipratropium 3.0-0.5 MG/3 ML Neb Soln NEB ONE (08:37)
--- NOTE | 2021-05-22 09:13 | EDM.PDOC ---
ED HPI GENERAL MEDICAL PROBLEM - General Chief Complaint: Respiratory Problem Stated Complaint: SOB Time Seen by Provider: 05/22/21 08:30 Source of Information: Reports: Patient, EMS, Family - History of Present Illness INITIAL COMMENTS - FREE TEXT/NARRATIVE: Came in by EMS due to SOB and weakness, productive cough. was seen in clinic last and placed on doxycycline. States COVID and flu swabs negative at that time. States had flu vaccine and COVID vaccines including booster. States is not getting better, is worsening. Denies CP, has hx CHF, pacemaker. Onset: Gradual Onset Date: 06/12/21 Duration: Getting Worse Location: Reports: Chest Quality: Reports: Other (Denies pain) Improves with: Reports: None Worsens with: Reports: Movement (SOB worse on exertion) Context: Reports: Activity Associated Symptoms: Reports: cough w sputum, Shortness of Breath - Related Data Allergies Allergy/AdvReac Type Severity Reaction Status Date / Time amoxicillin Allergy Abdominal Verified 05/22/21 09:18 Pain Home Meds: Home Meds Cholecalciferol (Vitamin D3) [Vitamin D3] 2,000 unit PO BEDTIME 12/20/13 [History] Folic Acid 0.4 mg PO BEDTIME 12/20/13 [History] Zolpidem [Ambien] 2 tab PO BEDTIME PRN 12/20/13 [History] Simvastatin [Zocor] 20 mg PO BEDTIME tablet 11/25/15 [Rx] Furosemide 20 mg PO 1200 08/28/16 [History] Furosemide 40 mg PO WITHBREAKFAST 08/28/16 [History] Spironolactone [Aldactone] 12.5 mg PO 1200 12/30/16 [History] Warfarin [Coumadin] 3 mg PO ASDIRECTED 05/05/17 [History] Warfarin [Coumadin] 2 mg PO ASDIRECTED 05/18/19 [History] allopurinoL [Zyloprim] 100 mg PO 1200 05/18/19 [History] Albuterol/Ipratropium [DuoNeb 3.0-0.5 MG/3 ML] 3 ml INH DAILY 05/22/21 [History] Doxycycline Hyclate 100 mg PO BID 05/22/21 [History] Metoprolol Succinate [Toprol XL] 25 mg PO DAILY 05/22/21 [History] Montelukast [Singulair] 10 mg PO DAILY 05/22/21 [History] Multivitamin 1 tab PO DAILY 05/22/21 [History] Psyllium Husk [Metamucil] 1 tsp PO DAILY 05/22/21 [History] Past Medical History HEENT History: Reports: Hard of Hearing, Impaired Vision Other HEENT History: wears bilateral hearing aides Cardiovascular History: Reports: Bypass, Heart Failure, High Cholesterol, Hypertension, [place], Pacemaker, SOB on Exertion Other Cardiovascular History: 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 Dermatologic History: Reports: Cellulitis Other Dermatologic History: buttock rash at times, skin cancerous cells removed to right side of face. - Infectious Disease History Infectious Disease History: Reports: MRSA - Past Surgical History Cardiovascular Surgical History: Reports: Pacer GI Surgical History: Reports: Appendectomy, Colonoscopy Male Surgical History: Reports: Prostatectomy Social & Family History - Family History Family Medical History: No Pertinent Family History - Tobacco Use Tobacco Use Status *Q: Never Tobacco User - Caffeine Use Caffeine Use: Reports: Coffee - Recreational Drug Use Recreational Drug Use: No ED ROS GENERAL - Review of Systems Review Of Systems: See Below Constitutional: Reports: No Symptoms HEENT: Reports: Hearing Loss Respiratory: Reports: Shortness of Breath, Wheezing, Cough, Sputum Cardiovascular: Reports: No Symptoms Endocrine: Reports: No Symptoms GI/Abdominal: Reports: No Symptoms : Reports: No Symptoms Musculoskeletal: Reports: No Symptoms Skin: Reports: No Symptoms Neurological: Reports: No Symptoms Psychiatric: Reports: No Symptoms Hematologic/Lymphatic: Reports: No Symptoms Immunologic: Reports: No Symptoms ED EXAM, GENERAL - Physical Exam Exam: See Below Exam Limited By: No Limitations General Appearance: Alert, No Apparent Distress Eye Exam: Bilateral Eye: EOMI, Normal Inspection Ears: Normal External Exam Nose: Normal Inspection, No Blood Throat/Mouth: Normal Lips, Normal Voice, No Airway Compromise Head: Atraumatic, Normocephalic Neck: Normal Inspection, Supple, Non-Tender, Full Range of Motion Respiratory/Chest: No Accessory Muscle Use, Chest Non-Tender, Rhonchi, Wheezing Cardiovascular: Normal Peripheral Pulses, Regular Rate, Rhythm GI/Abdominal: Normal Bowel Sounds, Soft, Non-Tender, No Distention Back Exam: Normal Inspection, Full Range of Motion Extremities: Normal Inspection, Normal Range of Motion, Non-Tender, No Pedal Edema, Normal Capillary Refill Neurological: Alert, Oriented, Normal Cognition Psychiatric: Normal Affect, Normal Mood Skin Exam: Warm, Dry, Intact, Normal Color, No Rash Lymphatic: No Adenopathy #1 Interpretation EKG Date: 05/22/21 Rhythm: Other (V Paced) Course - Vital Signs Last Recorded V/S: Last Vital Signs Temp 97.1 F 05/22/21 09:15 Pulse 96 05/22/21 09:15 Resp 20 05/22/21 09:15 BP 140/79 05/22/21 09:15 Pulse Ox 94 L 05/22/21 09:15 - Orders/Labs/Meds Orders: Active Orders 24 hr Category Date Time Status RT Aerosol Therapy [RC] ASDIRECTED Care 05/22/21 08:37 Active Chest 2V [CR] Stat Exams 05/22/21 08:44 Taken Levofloxacin/Dextrose 5%-Water [Levaquin in D5W 750 MG/ Med 05/22/21 10:24 Ordered 150 ML] 750 mg Premix Bag 1 bag IV ONETIME Labs: Laboratory Tests 05/22/21 05/22/21 05/22/21 Range/Units 08:44 08:44 08:44 WBC 15.7 H (4.0-11.0) 10^3/uL RBC 4.96 (4.50-6.00) x10^6/uL Hgb 16.0 (14.0-18.0) g/dL Hct 48.8 (42.0-52.0) % MCV 98.4 H (83.0-97.0) fL MCH 32.3 H (27.0-32.0) pg MCHC 32.8 (32.0-36.0) g/dL RDW Coeff of [place] 13.0 (11.0-15.0) % Plt Count 290 (150-400) 10^3/uL Immature Gran % (Auto) 0.2 (0.0-4.9) % Neut % (Auto) 76.9 H (41-71) % Lymph % (Auto) 11.6 L (24-44) % [place] % (Auto) 10.7 H (0-10) % Eos % (Auto) 0.5 (0-6) % Baso % (Auto) 0.1 (0-1) % Neut # (Auto) 12.07 H (1.80-8.00) x10^3/uL Lymph # (Auto) 1.83 (0.60-5.00) 10^3/uL [place] # (Auto) 1.68 H (0.00-1.50) 10^3/uL Eos # (Auto) 0.08 (0.00-1.50) 10^3/uL Baso # (Auto) 0.02 (0.00-0.50) 10^3/uL Immature Gran # (Auto) 0.03 (0.00-0.49) 10^3/uL PT 29.6 H (9.7-12.3) SEC INR 2.92 H (0.92-1.18) Sodium 142 (136-145) mEq/L Potassium 4.7 (3.5-5.0) mEq/L Chloride 103 (98-106) mEq/L Carbon Dioxide 33 H (21-32) mmol/L BUN 51 H (7-18) mg/dL Creatinine 1.9 H (0.7-1.3) mg/dL Est Cr Clr Drug Dosing 24.64 mL/min Estimated GFR (MDRD) 34 L (>=60) mL/min Glucose 111 H (75-99) mg/dL Calcium 9.0 (8.4-10.1) mg/dL Total Bilirubin 1.1 H (0.0-1.0) mg/dL AST 29 (15-37) U/L ALT 45 (12-78) U/L Alkaline Phosphatase 75 (46-116) U/L C-Reactive Protein 0.7 (0.2-0.8) mg/dL NT-Pro-B Natriuret Pep 2445 H (0-1000) pg/mL Total Protein 7.1 (6.4-8.2) g/dL Albumin 3.3 L (3.4-5.0) g/dL SARS CoV-2 RNA Rapid TRES (NEGATIVE) 05/22/21 Range/Units 08:44 WBC (4.0-11.0) 10^3/uL RBC (4.50-6.00) x10^6/uL Hgb (14.0-18.0) g/dL Hct (42.0-52.0) % MCV (83.0-97.0) fL MCH (27.0-32.0) pg MCHC (32.0-36.0) g/dL RDW Coeff of [place] (11.0-15.0) % Plt Count (150-400) 10^3/uL Immature Gran % (Auto) (0.0-4.9) % Neut % (Auto) (41-71) % Lymph % (Auto) (24-44) % [place] % (Auto) (0-10) % Eos % (Auto) (0-6) % Baso % (Auto) (0-1) % Neut # (Auto) (1.80-8.00) x10^3/uL Lymph # (Auto) (0.60-5.00) 10^3/uL [place] # (Auto) (0.00-1.50) 10^3/uL Eos # (Auto) (0.00-1.50) 10^3/uL Baso # (Auto) (0.00-0.50) 10^3/uL Immature Gran # (Auto) (0.00-0.49) 10^3/uL PT (9.7-12.3) SEC INR (0.92-1.18) Sodium (136-145) mEq/L Potassium (3.5-5.0) mEq/L Chloride (98-106) mEq/L Carbon Dioxide (21-32) mmol/L BUN (7-18) mg/dL Creatinine (0.7-1.3) mg/dL Est Cr Clr Drug Dosing mL/min Estimated GFR (MDRD) (>=60) mL/min Glucose (75-99) mg/dL Calcium (8.4-10.1) mg/dL Total Bilirubin (0.0-1.0) mg/dL AST (15-37) U/L ALT (12-78) U/L Alkaline Phosphatase (46-116) U/L C-Reactive Protein (0.2-0.8) mg/dL NT-Pro-B Natriuret Pep (0-1000) pg/mL Total Protein (6.4-8.2) g/dL Albumin (3.4-5.0) g/dL SARS CoV-2 RNA Rapid TRES Negative (NEGATIVE) Meds: Medications Discontinued Medications Generic Name Dose Route Start Last Admin Trade Name Jose PRN Reason Stop Dose Admin Albuterol/Ipratropium 3 ml 05/22/21 08:37 Albuterol/Ipratropium 3.0-0.5 Mg/3 Ml Neb Soln NEB 05/22/21 08:38 ONETIME ONE Albuterol/Ipratropium Confirm 05/22/21 08:15 05/22/21 10:27 Albuterol/Ipratropium 3.0-0.5 Mg/3 Ml Neb Soln Administered 05/22/21 08:16 Not Given Dose 3 ml .ROUTE .STK-MED ONE - Re-Assessments/Exams Free Text/Narrative Re-Assessment/Exam: 05/22/21 10:31 Discussed case with pt's PCP, [employer]. Will start on levofloxacin and admit pt. Departure - Departure Time of Disposition: 10:43 Disposition: Admitted As Inpatient 67 Condition: Good Clinical Impression: Pneumonia, General weakness, Productive cough, Congestive heart failure (CHF) - Discharge Information *PRESCRIPTION DRUG MONITORING PROGRAM REVIEWED*: Not Applicable *COPY OF PRESCRIPTION DRUG MONITORING REPORT IN PATIENT ADRIENNE: Not Applicable Referrals: Cathy Mckeon PA [Primary Care Provider] - Delores Dykes NP [ED Midlevel Provider] - Forms: ED Department Discharge Sepsis Event Note (ED) - Focused Exam Vital Signs: Vital Signs Temp Pulse Resp BP Pulse Ox 05/22/21 09:15 97.1 F 96 20 140/79 94 L - Problem List & Annotations (1) Productive cough SNOMED Code(s): 43041937, 811736367, 082669824 Code(s): R05.8 - OTHER SPECIFIED COUGH Status: Acute Current Visit: Yes (2) Pneumonia SNOMED Code(s): 250612233 Code(s): J18.9 - PNEUMONIA, UNSPECIFIED ORGANISM Status: Acute Priority: High Current Visit: No Qualifiers: Pneumonia type: due to unspecified organism Laterality: bilateral Lung location: lower lobe of lung Qualified Code(s): J18.9 - Pneumonia, unspecified organism (3) General weakness SNOMED Code(s): 77131740 Code(s): R53.1 - WEAKNESS Status: Acute Priority: High Current Visit: No - Problem List Review Problem List Initiated/Reviewed/Updated: Yes - My Orders Last 24 Hours: My Active Orders 05/22/21 08:37 RT Aerosol Therapy [RC] ASDIRECTED 05/22/21 08:44 Chest 2V [CR] Stat 05/22/21 10:24 Levofloxacin/Dextrose 5%-Water [Levaquin in D5W 750 MG/150 ML] 750 mg Premix Bag 1 bag IV ONETIME - Assessment/Plan Admission H&P: Please use this note as an admission H&P Last 24 Hours: My Active Orders 05/22/21 08:37 RT Aerosol Therapy [RC] ASDIRECTED 05/22/21 08:44 Chest 2V [CR] Stat 05/22/21 10:24 Levofloxacin/Dextrose 5%-Water [Levaquin in D5W 750 MG/150 ML] 750 mg Premix Bag 1 bag IV ONETIME
[2021-05-22] MEDS ORDERED: Levofloxacin/Dextrose 5%-Water 750 MG in Premix Bag 1 BAG IV ONE (10:24)
[2021-05-22] MEDS ORDERED: Furosemide 20 MG/2 ML VIAL IVPUSH ONE (10:34)
[2021-05-22] MEDS ORDERED: Acetaminophen 325 MG Tab PO PRN (11:20)
[2021-05-22] MEDS ORDERED: Ondansetron 4 MG Tab.DIS PO PRN (11:20)
[2021-05-22] MEDS: Spironolactone 25 MG Tab PO SCH (14:07)
[2021-05-22] MEDS: Furosemide 20 MG Tab PO SCH (14:08)
[2021-05-22] MEDS: Allopurinol 100 MG Tab PO SCH (14:08)
[2021-05-22] MEDS: Albuterol/Ipratropium 3.0-0.5 MG/3 ML Neb Soln NEB PRN ×2 (17:59→22:28)
[2021-05-22] MEDS: Cholecalciferol (Vitamin D3) 25 MCG Tab PO SCH (20:11)
[2021-05-22] MEDS: Folic Acid 1 MG Tab PO SCH (20:11)
[2021-05-22] MEDS: Simvastatin 20 MG Tab PO SCH (20:11)
[2021-05-22] MEDS: guaiFENesin 200 MG Tab PO SCH (20:11)
[2021-05-22] MEDS ORDERED: Zolpidem 5 MG Tab PO PRN (21:00)
[2021-05-23] MEDS: Psyllium Husk Powder Sugar Free 5.85 GM Packet PO SCH (08:19)
[2021-05-23] MEDS: Metoprolol Succinate 25 MG Tab.ER PO SCH (08:19)
[2021-05-23] MEDS: Montelukast 10 MG Tab PO SCH (08:20)
[2021-05-23] MEDS: guaiFENesin 200 MG Tab PO SCH ×3 (08:20→19:42)
[2021-05-23] MEDS: Furosemide 40 MG Tab PO SCH (08:20)
[2021-05-23] MEDS: Multivitamin Tab PO SCH (08:20)
[2021-05-23] MEDS: Albuterol/Ipratropium 3.0-0.5 MG/3 ML Neb Soln NEB PRN ×2 (09:34→12:01)
--- NOTE | 2021-05-23 10:04 | PCM.PN ---
- General Info Date of Service: 05/23/21 Admission Dx/Problem (Free Text): Pneumonia SOB Elevated SOB Subjective Update: Sitting up in bed expectorating thick sputum, states feels much better than yesterday. WBCs are improved. O2 still in use. Functional Status: Reports: Pain Controlled, Tolerating Diet - Review of Systems General: Reports: No Symptoms HEENT: Reports: No Symptoms Pulmonary: Reports: Shortness of Breath, Cough, Sputum Cardiovascular: Reports: No Symptoms Gastrointestinal: Reports: No Symptoms Genitourinary: Reports: No Symptoms Musculoskeletal: Reports: No Symptoms Skin: Reports: No Symptoms Neurological: Reports: No Symptoms Psychiatric: Reports: No Symptoms - Patient Data Vitals - Most Recent: Last Vital Signs Temp 97.1 F 05/23/21 08:00 Pulse 99 05/23/21 08:19 Resp 20 05/23/21 08:00 BP 117/93 H 05/23/21 08:19 Pulse Ox 96 05/23/21 08:00 Weight - Most Recent: 184 lb 6.4 oz I&O - Last 24 Hours: Intake & Output 05/22/21 05/23/21 05/23/21 22:59 06:59 14:59 Intake Total 500 Balance 500 Lab Results Last 24 Hours: Laboratory Results - last 24 hr 05/22/21 05/23/21 05/23/21 Range/Units 08:44 08:05 08:43 WBC 12.3 H (4.0-11.0) 10^3/uL RBC 4.73 (4.50-6.00) x10^6/uL Hgb 15.3 (14.0-18.0) g/dL Hct 46.9 (42.0-52.0) % MCV 99.2 H (83.0-97.0) fL MCH 32.3 H (27.0-32.0) pg MCHC 32.6 (32.0-36.0) g/dL RDW Coeff of [place]oke 13.0 (11.0-15.0) % Plt Count 268 (150-400) 10^3/uL Immature Gran % (Auto) 0.2 (0.0-4.9) % Neut % (Auto) 75.5 H (41-71) % Lymph % (Auto) 14.8 L (24-44) % [place] % (Auto) 8.7 (0-10) % Eos % (Auto) 0.6 (0-6) % Baso % (Auto) 0.2 (0-1) % Neut # (Auto) 9.29 H (1.80-8.00) x10^3/uL Lymph # (Auto) 1.82 (0.60-5.00) 10^3/uL [place] # (Auto) 1.07 (0.00-1.50) 10^3/uL Eos # (Auto) 0.07 (0.00-1.50) 10^3/uL Baso # (Auto) 0.03 (0.00-0.50) 10^3/uL Immature Gran # (Auto) 0.03 (0.00-0.49) 10^3/uL Sodium 142 (136-145) mEq/L Potassium 4.7 (3.5-5.0) mEq/L Chloride 103 (98-106) mEq/L Carbon Dioxide 33 H (21-32) mmol/L BUN 51 H (7-18) mg/dL Creatinine 1.9 H (0.7-1.3) mg/dL Est Cr Clr Drug Dosing 24.64 mL/min Estimated GFR (MDRD) 34 L (>=60) mL/min Glucose 111 H (75-99) mg/dL POC Glucose 110 H (75-105) mg/dL Calcium 9.0 (8.4-10.1) mg/dL Total Bilirubin 1.1 H (0.0-1.0) mg/dL AST 29 (15-37) U/L ALT 45 (12-78) U/L Alkaline Phosphatase 75 (46-116) U/L C-Reactive Protein 0.7 (0.2-0.8) mg/dL NT-Pro-B Natriuret Pep 2445 H (0-1000) pg/mL Total Protein 7.1 (6.4-8.2) g/dL Albumin 3.3 L (3.4-5.0) g/dL 05/23/21 Range/Units 08:43 WBC (4.0-11.0) 10^3/uL RBC (4.50-6.00) x10^6/uL Hgb (14.0-18.0) g/dL Hct (42.0-52.0) % MCV (83.0-97.0) fL MCH (27.0-32.0) pg MCHC (32.0-36.0) g/dL RDW Coeff of [place] (11.0-15.0) % Plt Count (150-400) 10^3/uL Immature Gran % (Auto) (0.0-4.9) % Neut % (Auto) (41-71) % Lymph % (Auto) (24-44) % [place] % (Auto) (0-10) % Eos % (Auto) (0-6) % Baso % (Auto) (0-1) % Neut # (Auto) (1.80-8.00) x10^3/uL Lymph # (Auto) (0.60-5.00) 10^3/uL [place] # (Auto) (0.00-1.50) 10^3/uL Eos # (Auto) (0.00-1.50) 10^3/uL Baso # (Auto) (0.00-0.50) 10^3/uL Immature Gran # (Auto) (0.00-0.49) 10^3/uL Sodium 138 (136-145) mEq/L Potassium 4.4 (3.5-5.0) mEq/L Chloride 101 (98-106) mEq/L Carbon Dioxide 32 (21-32) mmol/L BUN 46 H (7-18) mg/dL Creatinine 2.0 H (0.7-1.3) mg/dL Est Cr Clr Drug Dosing 23.41 mL/min Estimated GFR (MDRD) 32 L (>=60) mL/min Glucose 155 H D (75-99) mg/dL POC Glucose (75-105) mg/dL Calcium 8.3 L (8.4-10.1) mg/dL Total Bilirubin 1.4 H (0.0-1.0) mg/dL AST 25 (15-37) U/L ALT 39 (12-78) U/L Alkaline Phosphatase 66 (46-116) U/L C-Reactive Protein (0.2-0.8) mg/dL NT-Pro-B Natriuret Pep (0-1000) pg/mL Total Protein 6.7 (6.4-8.2) g/dL Albumin 2.9 L (3.4-5.0) g/dL Med Orders - Current: Current Medications Acetaminophen (Acetaminophen 325 Mg Tab) 650 mg PO Q4H PRN PRN Reason: Pain (Mild 1-3)/fever Albuterol/Ipratropium (Albuterol/Ipratropium 3.0-0.5 Mg/3 Ml Neb Soln) 3 ml NEB Q4H PRN PRN Reason: Dyspnea Last Admin: 05/23/21 09:34 Dose: 3 ml Documented by: Allopurinol (Allopurinol 100 Mg Tab) 100 mg PO 1200 [facility] Last Admin: 05/22/21 14:08 Dose: 100 mg Documented by: Cholecalciferol (Cholecalciferol (Vitamin D3) 25 Mcg Tab) 50 mcg PO BEDTIME [facility] Last Admin: 05/22/21 20:11 Dose: 50 mcg Documented by: Folic Acid (Folic Acid 1 Mg Tab) 0.5 mg PO BEDTIME [facility] Last Admin: 05/22/21 20:11 Dose: 0.5 mg Documented by: Furosemide (Furosemide 20 Mg Tab) 20 mg PO 1200 [facility] Last Admin: 05/22/21 14:08 Dose: 20 mg Documented by: Furosemide (Furosemide 40 Mg Tab) 40 mg PO WITHBREAKFAST [facility] Last Admin: 05/23/21 08:20 Dose: 40 mg Documented by: Guaifenesin (Guaifenesin 200 Mg Tab) 200 mg PO TID [facility] Last Admin: 05/23/21 08:20 Dose: 200 mg Documented by: Levofloxacin/Dextrose 750 mg/ (Premix) 150 mls @ 100 mls/hr IV Q48H [facility] Stop: 06/01/21 12:29 Metoprolol Succinate (Metoprolol Succinate 25 Mg Tab.Er) 25 mg PO DAILY [facility] Last Admin: 05/23/21 08:19 Dose: 25 mg Documented by: Montelukast Sodium (Montelukast 10 Mg Tab) 10 mg PO DAILY [facility] Last Admin: 05/23/21 08:20 Dose: 10 mg Documented by: Multivitamins/Minerals/Vitamin C (Multivitamin Tab) 1 tab PO DAILY [facility] Last Admin: 05/23/21 08:20 Dose: 1 tab Documented by: Ondansetron HCl (Ondansetron 4 Mg Tab.Dis) 4 mg PO Q6H PRN PRN Reason: nausea, able to take PO Psyllium Husk (Psyllium Husk Powder Sugar Free 5.85 Gm Packet) 1 pkt PO DAILY [facility] Last Admin: 05/23/21 08:19 Dose: 1 pkt Documented by: Simvastatin (Simvastatin 20 Mg Tab) 20 mg PO BEDTIME [facility] Last Admin: 05/22/21 20:11 Dose: 20 mg Documented by: Spironolactone (Spironolactone 25 Mg Tab) 12.5 mg PO 1200 [facility] Last Admin: 05/22/21 14:07 Dose: 12.5 mg Documented by: Warfarin Sodium (Warfarin 2 Mg Tab) 2 mg PO SuMoWeThSa@1200 JADEN Warfarin Sodium (Warfarin 1 Mg Tab) 3 mg PO TuFr@1200 JADEN Zolpidem Tartrate (Zolpidem 5 Mg Tab) 10 mg PO BEDTIME PRN PRN Reason: Insomnia Discontinued Medications Albuterol/Ipratropium (Albuterol/Ipratropium 3.0-0.5 Mg/3 Ml Neb Soln) 3 ml NEB ONETIME ONE Stop: 05/22/21 08:38 Last Admin: 05/22/21 08:45 Dose: 3 ml Documented by: Albuterol/Ipratropium (Albuterol/Ipratropium 3.0-0.5 Mg/3 Ml Neb Soln) Confirm Administered Dose 3 ml .ROUTE .STK-MED ONE Stop: 05/22/21 08:16 Last Admin: 05/22/21 10:27 Dose: Not Given Documented by: Furosemide (Furosemide 20 Mg/2 Ml Vial) 20 mg IVPUSH ONETIME ONE Stop: 05/22/21 10:35 Last Admin: 05/22/21 10:39 Dose: 20 mg Documented by: Levofloxacin/Dextrose 750 mg/ (Premix) 150 mls @ 100 mls/hr IV ONETIME ONE Stop: 05/22/21 11:53 Last Admin: 05/22/21 10:34 Dose: 100 mls/hr Documented by: Zolpidem Tartrate (Zolpidem 5 Mg Tab) 5 mg PO BEDTIME PRN PRN Reason: Insomnia Last Admin: 05/22/21 20:11 Dose: 5 mg Documented by: - Exam Quality Assessment: Supplemental Oxygen General: Alert, Oriented, Cooperative, No Acute Distress HEENT: EOMI, Mucous Membr. Moist/[place] Neck: Supple Lungs: Rhonchi, Wheezing, Other (much less rhonchi and wheezing than yesterday, more airflow) Cardiovascular: Regular Rate, Regular Rhythm GI/Abdominal Exam: Normal Bowel Sounds, Soft, Non-Tender Back Exam: Normal Inspection, Full Range of Motion Extremities: Normal Inspection, Normal Range of Motion, Non-Tender, No Pedal Edema, Normal Capillary Refill Skin: Warm, Dry, Intact Neurological: No New Focal Deficit Psy/Mental Status: Alert, Normal Affect, Normal Mood - Patient Data Lab Results Last 24 hrs: Laboratory Results - last 24 hr 05/22/21 05/23/21 05/23/21 Range/Units 08:44 08:05 08:43 WBC 12.3 H (4.0-11.0) 10^3/uL RBC 4.73 (4.50-6.00) x10^6/uL Hgb 15.3 (14.0-18.0) g/dL Hct 46.9 (42.0-52.0) % MCV 99.2 H (83.0-97.0) fL MCH 32.3 H (27.0-32.0) pg MCHC 32.6 (32.0-36.0) g/dL RDW Coeff of [place]oke 13.0 (11.0-15.0) % Plt Count 268 (150-400) 10^3/uL Immature Gran % (Auto) 0.2 (0.0-4.9) % Neut % (Auto) 75.5 H (41-71) % Lymph % (Auto) 14.8 L (24-44) % [place] % (Auto) 8.7 (0-10) % Eos % (Auto) 0.6 (0-6) % Baso % (Auto) 0.2 (0-1) % Neut # (Auto) 9.29 H (1.80-8.00) x10^3/uL Lymph # (Auto) 1.82 (0.60-5.00) 10^3/uL [place] # (Auto) 1.07 (0.00-1.50) 10^3/uL Eos # (Auto) 0.07 (0.00-1.50) 10^3/uL Baso # (Auto) 0.03 (0.00-0.50) 10^3/uL Immature Gran # (Auto) 0.03 (0.00-0.49) 10^3/uL Sodium 142 (136-145) mEq/L Potassium 4.7 (3.5-5.0) mEq/L Chloride 103 (98-106) mEq/L Carbon Dioxide 33 H (21-32) mmol/L BUN 51 H (7-18) mg/dL Creatinine 1.9 H (0.7-1.3) mg/dL Est Cr Clr Drug Dosing 24.64 mL/min Estimated GFR (MDRD) 34 L (>=60) mL/min Glucose 111 H (75-99) mg/dL POC Glucose 110 H (75-105) mg/dL Calcium 9.0 (8.4-10.1) mg/dL Total Bilirubin 1.1 H (0.0-1.0) mg/dL AST 29 (15-37) U/L ALT 45 (12-78) U/L Alkaline Phosphatase 75 (46-116) U/L C-Reactive Protein 0.7 (0.2-0.8) mg/dL NT-Pro-B Natriuret Pep 2445 H (0-1000) pg/mL Total Protein 7.1 (6.4-8.2) g/dL Albumin 3.3 L (3.4-5.0) g/dL 05/23/21 Range/Units 08:43 WBC (4.0-11.0) 10^3/uL RBC (4.50-6.00) x10^6/uL Hgb (14.0-18.0) g/dL Hct (42.0-52.0) % MCV (83.0-97.0) fL MCH (27.0-32.0) pg MCHC (32.0-36.0) g/dL RDW Coeff of [place] (11.0-15.0) % Plt Count (150-400) 10^3/uL Immature Gran % (Auto) (0.0-4.9) % Neut % (Auto) (41-71) % Lymph % (Auto) (24-44) % [place] % (Auto) (0-10) % Eos % (Auto) (0-6) % Baso % (Auto) (0-1) % Neut # (Auto) (1.80-8.00) x10^3/uL Lymph # (Auto) (0.60-5.00) 10^3/uL [place] # (Auto) (0.00-1.50) 10^3/uL Eos # (Auto) (0.00-1.50) 10^3/uL Baso # (Auto) (0.00-0.50) 10^3/uL Immature Gran # (Auto) (0.00-0.49) 10^3/uL Sodium 138 (136-145) mEq/L Potassium 4.4 (3.5-5.0) mEq/L Chloride 101 (98-106) mEq/L Carbon Dioxide 32 (21-32) mmol/L BUN 46 H (7-18) mg/dL Creatinine 2.0 H (0.7-1.3) mg/dL Est Cr Clr Drug Dosing 23.41 mL/min Estimated GFR (MDRD) 32 L (>=60) mL/min Glucose 155 H D (75-99) mg/dL POC Glucose (75-105) mg/dL Calcium 8.3 L (8.4-10.1) mg/dL Total Bilirubin 1.4 H (0.0-1.0) mg/dL AST 25 (15-37) U/L ALT 39 (12-78) U/L Alkaline Phosphatase 66 (46-116) U/L C-Reactive Protein (0.2-0.8) mg/dL NT-Pro-B Natriuret Pep (0-1000) pg/mL Total Protein 6.7 (6.4-8.2) g/dL Albumin 2.9 L (3.4-5.0) g/dL Result Diagrams: 05/23/21 08:43 05/23/21 08:43 Sepsis Event Note - Evaluation Sepsis Screening Result: Possible Sepsis Risk - Focused Exam Vital Signs: Vital Signs Temp Pulse Pulse Resp BP BP Pulse Ox 05/23/21 08:19 99 117/93 H 05/23/21 08:00 97.1 F 98 20 117/93 H 96 05/23/21 04:00 97.8 F 85 18 122/79 95 05/23/21 00:00 97.2 F 88 20 137/69 95 - Problem List & Annotations (1) Productive cough SNOMED Code(s): 20323675, 154625227, 627621787 Code(s): R05.8 - OTHER SPECIFIED COUGH Status: Acute Current Visit: Yes (2) Pneumonia SNOMED Code(s): 987649579 Code(s): J18.9 - PNEUMONIA, UNSPECIFIED ORGANISM Status: Acute Priority: High Current Visit: Yes Qualifiers: Pneumonia type: due to unspecified organism Laterality: bilateral Lung location: lower lobe of lung Qualified Code(s): J18.9 - Pneumonia, unspecified organism (3) General weakness SNOMED Code(s): 02137183 Code(s): R53.1 - WEAKNESS Status: Acute Priority: High Current Visit: Yes - Problem List Review Problem List Initiated/Reviewed/Updated: Yes - My Orders Last 24 Hours: My Active Orders 05/22/21 11:12 Vital Signs [RC] 0800,1200,1600,2000,0000,0400 Resuscitation Status Routine 05/22/21 11:18 Patient Status [ADT] Routine 05/22/21 11:20 Patient Status [ADT] Routine Blood Glucose Check, Bedside [RC] 0730,1700 Height and Weight [RC] .PRN Oxygen Therapy [RC] 2355 Acetaminophen [TylenoL] 650 mg PO Q4H PRN Ondansetron [Zofran ODT] 4 mg PO Q6H PRN 05/22/21 11:32 Albuterol/Ipratropium [DuoNeb 3.0-0.5 MG/3 ML] 3 ml NEB Q4H PRN 05/22/21 11:33 RT Aerosol Therapy [RC] .PRN 05/22/21 Lunch Consistent Carbohydrate Diet [DIET] Furosemide [Lasix] 20 mg PO 1200 Spironolactone [Aldactone] 12.5 mg PO 1200 allopurinoL [Zyloprim] 100 mg PO 1200 05/22/21 20:00 Cholecalciferol (Vitamin D3) [Vitamin D3] 50 mcg PO BEDTIME Folic Acid 0.5 mg PO BEDTIME Simvastatin [Zocor] 20 mg PO BEDTIME guaiFENesin [Organ-I NR] 200 mg PO TID 05/23/21 08:00 Furosemide [Lasix] 40 mg PO WITHBREAKFAST Metoprolol Succinate [Toprol XL] 25 mg PO DAILY Montelukast [Singulair] 10 mg PO DAILY Multivitamins [Tab-A-Irma] 1 tab PO DAILY Psyllium Husk/Aspartame [Metamucil Sugar Free] 1 pkt PO DAILY 05/23/21 08:39 Zolpidem [Ambien] 10 mg PO BEDTIME PRN 05/23/21 12:00 Warfarin [Coumadin] 2 mg PO SuMoWeThSa@1200 05/24/21 06:00 CBC WITH AUTO DIFF [HEME] DAILY CMP [COMPREHENSIVE METABOLIC PN,CMP] [CHEM] DAILY 05/24/21 11:00 Levofloxacin/Dextrose 5%-Water [Levaquin in D5W 750 MG/150 ML] 750 mg Premix Bag 1 bag IV Q48H 05/25/21 06:00 CBC WITH AUTO DIFF [HEME] DAILY CMP [COMPREHENSIVE METABOLIC PN,CMP] [CHEM] DAILY 05/25/21 12:00 Warfarin [Coumadin] 3 mg PO TuFr@1200 05/26/21 06:00 CBC WITH AUTO DIFF [HEME] DAILY CMP [COMPREHENSIVE METABOLIC PN,CMP] [CHEM] DAILY - Plan Plan:: Continue antibiotics, continue oxygen, attempt to wean.
[2021-05-23] MEDS: Warfarin 2 MG Tab PO SCH (11:57)
[2021-05-23] MEDS: Furosemide 20 MG Tab PO SCH (11:58)
[2021-05-23] MEDS: Spironolactone 25 MG Tab PO SCH (11:58)
[2021-05-23] MEDS: Allopurinol 100 MG Tab PO SCH (12:00)
[2021-05-23] MEDS: Albuterol/Ipratropium 3.0-0.5 MG/3 ML Neb Soln NEB SCH ×2 (16:07→19:42)
[2021-05-23] MEDS: Zolpidem 5 MG Tab PO PRN (19:41)
[2021-05-23] MEDS: Folic Acid 1 MG Tab PO SCH (19:42)
[2021-05-23] MEDS: Simvastatin 20 MG Tab PO SCH (19:42)
[2021-05-23] MEDS: Cholecalciferol (Vitamin D3) 25 MCG Tab PO SCH (19:43)
[2021-05-24] MEDS: Albuterol/Ipratropium 3.0-0.5 MG/3 ML Neb Soln NEB SCH ×4 (07:52→20:01)
[2021-05-24] MEDS: guaiFENesin 200 MG Tab PO SCH ×3 (07:52→20:05)
[2021-05-24] MEDS: Montelukast 10 MG Tab PO SCH (07:52)
[2021-05-24] MEDS: Furosemide 40 MG Tab PO SCH (07:52)
[2021-05-24] MEDS: Psyllium Husk Powder Sugar Free 5.85 GM Packet PO SCH (07:53)
[2021-05-24] MEDS: Metoprolol Succinate 25 MG Tab.ER PO SCH (07:53)
[2021-05-24] MEDS: Multivitamin Tab PO SCH (07:53)
--- NOTE | 2021-05-24 08:49 | PCM.PN ---
- General Info Date of Service: 05/24/21 Admission Dx/Problem (Free Text): Pneumonia SOB Elevated SOB Subjective Update: Admitted through ER with SOB, productive couth, elevated WBCs. On oxygen. Placed on levofloxacin, responding favorably, WBCs are improved. Pt appears in good spirits today, states does not feel ready to leave hospital yet. Functional Status: Reports: Pain Controlled, Tolerating Diet, Urinating - Review of Systems General: Reports: Weakness HEENT: Reports: No Symptoms Pulmonary: Reports: Shortness of Breath, Cough, Sputum Cardiovascular: Reports: No Symptoms Gastrointestinal: Reports: No Symptoms Genitourinary: Reports: No Symptoms Musculoskeletal: Reports: No Symptoms Skin: Reports: No Symptoms Neurological: Reports: No Symptoms Psychiatric: Reports: No Symptoms - Patient Data Vitals - Most Recent: Last Vital Signs Temp 96.8 F L 05/24/21 07:49 Pulse 92 05/24/21 07:53 Resp 18 05/24/21 07:49 BP 125/74 05/24/21 07:53 Pulse Ox 93 L 05/24/21 07:49 Weight - Most Recent: 184 lb 6.4 oz I&O - Last 24 Hours: Intake & Output 05/23/21 05/24/21 05/24/21 22:59 06:59 14:59 Intake Total 1000 Balance 1000 Lab Results Last 24 Hours: Laboratory Results - last 24 hr 05/23/21 05/23/21 05/23/21 Range/Units 08:43 08:43 16:59 WBC 12.3 H (4.0-11.0) 10^3/uL RBC 4.73 (4.50-6.00) x10^6/uL Hgb 15.3 (14.0-18.0) g/dL Hct 46.9 (42.0-52.0) % MCV 99.2 H (83.0-97.0) fL MCH 32.3 H (27.0-32.0) pg MCHC 32.6 (32.0-36.0) g/dL RDW Coeff of Brooke 13.0 (11.0-15.0) % Plt Count 268 (150-400) 10^3/uL Immature Gran % (Auto) 0.2 (0.0-4.9) % Neut % (Auto) 75.5 H (41-71) % Lymph % (Auto) 14.8 L (24-44) % [place] % (Auto) 8.7 (0-10) % Eos % (Auto) 0.6 (0-6) % Baso % (Auto) 0.2 (0-1) % Neut # (Auto) 9.29 H (1.80-8.00) x10^3/uL Lymph # (Auto) 1.82 (0.60-5.00) 10^3/uL [place] # (Auto) 1.07 (0.00-1.50) 10^3/uL Eos # (Auto) 0.07 (0.00-1.50) 10^3/uL Baso # (Auto) 0.03 (0.00-0.50) 10^3/uL Immature Gran # (Auto) 0.03 (0.00-0.49) 10^3/uL Sodium 138 (136-145) mEq/L Potassium 4.4 (3.5-5.0) mEq/L Chloride 101 (98-106) mEq/L Carbon Dioxide 32 (21-32) mmol/L BUN 46 H (7-18) mg/dL Creatinine 2.0 H (0.7-1.3) mg/dL Est Cr Clr Drug Dosing 23.41 mL/min Estimated GFR (MDRD) 32 L (>=60) mL/min Glucose 155 H D (75-99) mg/dL POC Glucose 145 H (75-105) mg/dL Calcium 8.3 L (8.4-10.1) mg/dL Total Bilirubin 1.4 H (0.0-1.0) mg/dL AST 25 (15-37) U/L ALT 39 (12-78) U/L Alkaline Phosphatase 66 (46-116) U/L Total Protein 6.7 (6.4-8.2) g/dL Albumin 2.9 L (3.4-5.0) g/dL 05/24/21 05/24/21 Range/Units 06:55 06:55 WBC 11.3 H (4.0-11.0) 10^3/uL RBC 4.38 L (4.50-6.00) x10^6/uL Hgb 14.1 (14.0-18.0) g/dL Hct 43.4 (42.0-52.0) % MCV 99.1 H (83.0-97.0) fL MCH 32.2 H (27.0-32.0) pg MCHC 32.5 (32.0-36.0) g/dL RDW Coeff of Brooke 13.1 (11.0-15.0) % Plt Count 259 (150-400) 10^3/uL Immature Gran % (Auto) 0.5 (0.0-4.9) % Neut % (Auto) 69.4 (41-71) % Lymph % (Auto) 15.4 L (24-44) % [place] % (Auto) 12.6 H (0-10) % Eos % (Auto) 2.0 (0-6) % Baso % (Auto) 0.1 (0-1) % Neut # (Auto) 7.85 (1.80-8.00) x10^3/uL Lymph # (Auto) 1.75 (0.60-5.00) 10^3/uL [place] # (Auto) 1.43 (0.00-1.50) 10^3/uL Eos # (Auto) 0.23 (0.00-1.50) 10^3/uL Baso # (Auto) 0.01 (0.00-0.50) 10^3/uL Immature Gran # (Auto) 0.06 (0.00-0.49) 10^3/uL Sodium 139 (136-145) mEq/L Potassium 4.9 (3.5-5.0) mEq/L Chloride 104 (98-106) mEq/L Carbon Dioxide 32 (21-32) mmol/L BUN 47 H (7-18) mg/dL Creatinine 2.0 H (0.7-1.3) mg/dL Est Cr Clr Drug Dosing 23.41 mL/min Estimated GFR (MDRD) 32 L (>=60) mL/min Glucose 110 H D (75-99) mg/dL POC Glucose (75-105) mg/dL Calcium 7.9 L (8.4-10.1) mg/dL Total Bilirubin 0.7 (0.0-1.0) mg/dL AST 24 (15-37) U/L ALT 33 (12-78) U/L Alkaline Phosphatase 63 (46-116) U/L Total Protein 6.2 L (6.4-8.2) g/dL Albumin 2.7 L (3.4-5.0) g/dL [place] Results Last 24 Hours: Microbiology 05/23/21 09:58 Gram Stain - Final Sputum - Expectorated Med Orders - Current: Current Medications Acetaminophen (Acetaminophen 325 Mg Tab) 650 mg PO Q4H PRN PRN Reason: Pain (Mild 1-3)/fever Albuterol/Ipratropium (Albuterol/Ipratropium 3.0-0.5 Mg/3 Ml Neb Soln) 3 ml NEB Q4H PRN PRN Reason: Dyspnea Last Admin: 05/23/21 12:01 Dose: 3 ml Documented by: Albuterol/Ipratropium (Albuterol/Ipratropium 3.0-0.5 Mg/3 Ml Neb Soln) 3 ml NEB QIDRT [facility] Last Admin: 05/24/21 07:52 Dose: 3 ml Documented by: Allopurinol (Allopurinol 100 Mg Tab) 100 mg PO 1200 [facility] Last Admin: 05/23/21 12:00 Dose: 100 mg Documented by: Cholecalciferol (Cholecalciferol (Vitamin D3) 25 Mcg Tab) 50 mcg PO BEDTIME [facility] Last Admin: 05/23/21 19:43 Dose: 50 mcg Documented by: Folic Acid (Folic Acid 1 Mg Tab) 0.5 mg PO BEDTIME [facility] Last Admin: 05/23/21 19:42 Dose: 0.5 mg Documented by: Furosemide (Furosemide 20 Mg Tab) 20 mg PO 1200 [facility] Last Admin: 05/23/21 11:58 Dose: 20 mg Documented by: Furosemide (Furosemide 40 Mg Tab) 40 mg PO WITHBREAKFAST [facility] Last Admin: 05/24/21 07:52 Dose: 40 mg Documented by: Guaifenesin (Guaifenesin 200 Mg Tab) 200 mg PO TID [facility] Last Admin: 05/24/21 07:52 Dose: 200 mg Documented by: Levofloxacin/Dextrose 750 mg/ (Premix) 150 mls @ 100 mls/hr IV Q48H [facility] Stop: 06/01/21 12:29 Metoprolol Succinate (Metoprolol Succinate 25 Mg Tab.Er) 25 mg PO DAILY [facility] Last Admin: 05/24/21 07:53 Dose: 25 mg Documented by: Montelukast Sodium (Montelukast 10 Mg Tab) 10 mg PO DAILY [facility] Last Admin: 05/24/21 07:52 Dose: 10 mg Documented by: Multivitamins/Minerals/Vitamin C (Multivitamin Tab) 1 tab PO DAILY [facility] Last Admin: 05/24/21 07:53 Dose: 1 tab Documented by: Ondansetron HCl (Ondansetron 4 Mg Tab.Dis) 4 mg PO Q6H PRN PRN Reason: nausea, able to take PO Psyllium Husk (Psyllium Husk Powder Sugar Free 5.85 Gm Packet) 1 pkt PO DAILY [facility] Last Admin: 05/24/21 07:53 Dose: 1 pkt Documented by: Simvastatin (Simvastatin 20 Mg Tab) 20 mg PO BEDTIME [facility] Last Admin: 05/23/21 19:42 Dose: 20 mg Documented by: Spironolactone (Spironolactone 25 Mg Tab) 12.5 mg PO 1200 [facility] Last Admin: 05/23/21 11:58 Dose: 12.5 mg Documented by: Warfarin Sodium (Warfarin 2 Mg Tab) 2 mg PO SuMoWeThSa@1200 [facility] Last Admin: 05/23/21 11:57 Dose: 2 mg Documented by: Warfarin Sodium (Warfarin 1 Mg Tab) 3 mg PO TuFr@1200 [facility] Zolpidem Tartrate (Zolpidem 5 Mg Tab) 10 mg PO BEDTIME PRN PRN Reason: Insomnia Last Admin: 05/23/21 19:41 Dose: 10 mg Documented by: Discontinued Medications Albuterol/Ipratropium (Albuterol/Ipratropium 3.0-0.5 Mg/3 Ml Neb Soln) 3 ml NEB ONETIME ONE Stop: 05/22/21 08:38 Last Admin: 05/22/21 08:45 Dose: 3 ml Documented by: Albuterol/Ipratropium (Albuterol/Ipratropium 3.0-0.5 Mg/3 Ml Neb Soln) Confirm Administered Dose 3 ml .ROUTE .STK-MED ONE Stop: 05/22/21 08:16 Last Admin: 05/22/21 10:27 Dose: Not Given Documented by: Furosemide (Furosemide 20 Mg/2 Ml Vial) 20 mg IVPUSH ONETIME ONE Stop: 05/22/21 10:35 Last Admin: 05/22/21 10:39 Dose: 20 mg Documented by: Levofloxacin/Dextrose 750 mg/ (Premix) 150 mls @ 100 mls/hr IV ONETIME ONE Stop: 05/22/21 11:53 Last Admin: 05/22/21 10:34 Dose: 100 mls/hr Documented by: Zolpidem Tartrate (Zolpidem 5 Mg Tab) 5 mg PO BEDTIME PRN PRN Reason: Insomnia Last Admin: 05/22/21 20:11 Dose: 5 mg Documented by: - Exam Quality Assessment: Supplemental Oxygen General: Alert, Oriented, Cooperative, No Acute Distress HEENT: Pupils Equal, Pupils Reactive, EOMI, Mucous Membr. Moist/[place] Neck: Supple Lungs: Rhonchi (scattered rhonchi, improved) Cardiovascular: Regular Rate, Regular Rhythm GI/Abdominal Exam: Normal Bowel Sounds, Soft, Non-Tender, No Distention Extremities: Normal Inspection, Normal Range of Motion, Non-Tender, No Pedal Edema, Normal Capillary Refill Skin: Warm, Dry, Intact Neurological: No New Focal Deficit Psy/Mental Status: Alert, Normal Affect, Normal Mood - Patient Data Lab Results Last 24 hrs: Laboratory Results - last 24 hr 05/23/21 05/23/21 05/23/21 Range/Units 08:43 08:43 16:59 WBC 12.3 H (4.0-11.0) 10^3/uL RBC 4.73 (4.50-6.00) x10^6/uL Hgb 15.3 (14.0-18.0) g/dL Hct 46.9 (42.0-52.0) % MCV 99.2 H (83.0-97.0) fL MCH 32.3 H (27.0-32.0) pg MCHC 32.6 (32.0-36.0) g/dL RDW Coeff of Brooke 13.0 (11.0-15.0) % Plt Count 268 (150-400) 10^3/uL Immature Gran % (Auto) 0.2 (0.0-4.9) % Neut % (Auto) 75.5 H (41-71) % Lymph % (Auto) 14.8 L (24-44) % [place] % (Auto) 8.7 (0-10) % Eos % (Auto) 0.6 (0-6) % Baso % (Auto) 0.2 (0-1) % Neut # (Auto) 9.29 H (1.80-8.00) x10^3/uL Lymph # (Auto) 1.82 (0.60-5.00) 10^3/uL [place] # (Auto) 1.07 (0.00-1.50) 10^3/uL Eos # (Auto) 0.07 (0.00-1.50) 10^3/uL Baso # (Auto) 0.03 (0.00-0.50) 10^3/uL Immature Gran # (Auto) 0.03 (0.00-0.49) 10^3/uL Sodium 138 (136-145) mEq/L Potassium 4.4 (3.5-5.0) mEq/L Chloride 101 (98-106) mEq/L Carbon Dioxide 32 (21-32) mmol/L BUN 46 H (7-18) mg/dL Creatinine 2.0 H (0.7-1.3) mg/dL Est Cr Clr Drug Dosing 23.41 mL/min Estimated GFR (MDRD) 32 L (>=60) mL/min Glucose 155 H D (75-99) mg/dL POC Glucose 145 H (75-105) mg/dL Calcium 8.3 L (8.4-10.1) mg/dL Total Bilirubin 1.4 H (0.0-1.0) mg/dL AST 25 (15-37) U/L ALT 39 (12-78) U/L Alkaline Phosphatase 66 (46-116) U/L Total Protein 6.7 (6.4-8.2) g/dL Albumin 2.9 L (3.4-5.0) g/dL 05/24/21 05/24/21 Range/Units 06:55 06:55 WBC 11.3 H (4.0-11.0) 10^3/uL RBC 4.38 L (4.50-6.00) x10^6/uL Hgb 14.1 (14.0-18.0) g/dL Hct 43.4 (42.0-52.0) % MCV 99.1 H (83.0-97.0) fL MCH 32.2 H (27.0-32.0) pg MCHC 32.5 (32.0-36.0) g/dL RDW Coeff of Brooke 13.1 (11.0-15.0) % Plt Count 259 (150-400) 10^3/uL Immature Gran % (Auto) 0.5 (0.0-4.9) % Neut % (Auto) 69.4 (41-71) % Lymph % (Auto) 15.4 L (24-44) % [place] % (Auto) 12.6 H (0-10) % Eos % (Auto) 2.0 (0-6) % Baso % (Auto) 0.1 (0-1) % Neut # (Auto) 7.85 (1.80-8.00) x10^3/uL Lymph # (Auto) 1.75 (0.60-5.00) 10^3/uL [place] # (Auto) 1.43 (0.00-1.50) 10^3/uL Eos # (Auto) 0.23 (0.00-1.50) 10^3/uL Baso # (Auto) 0.01 (0.00-0.50) 10^3/uL Immature Gran # (Auto) 0.06 (0.00-0.49) 10^3/uL Sodium 139 (136-145) mEq/L Potassium 4.9 (3.5-5.0) mEq/L Chloride 104 (98-106) mEq/L Carbon Dioxide 32 (21-32) mmol/L BUN 47 H (7-18) mg/dL Creatinine 2.0 H (0.7-1.3) mg/dL Est Cr Clr Drug Dosing 23.41 mL/min Estimated GFR (MDRD) 32 L (>=60) mL/min Glucose 110 H D (75-99) mg/dL POC Glucose (75-105) mg/dL Calcium 7.9 L (8.4-10.1) mg/dL Total Bilirubin 0.7 (0.0-1.0) mg/dL AST 24 (15-37) U/L ALT 33 (12-78) U/L Alkaline Phosphatase 63 (46-116) U/L Total Protein 6.2 L (6.4-8.2) g/dL Albumin 2.7 L (3.4-5.0) g/dL Result Diagrams: 01/06/22 06:55 05/24/21 06:55 [place] Results Last 24 hrs: Microbiology 05/23/21 09:58 Gram Stain - Final Sputum - Expectorated Sepsis Event Note - Evaluation Sepsis Screening Result: Possible Sepsis Risk - Focused Exam Vital Signs: Vital Signs Temp Pulse Pulse Resp BP BP Pulse Ox 05/24/21 07:53 92 125/74 05/24/21 07:49 96.8 F L 92 18 125/74 93 L 05/24/21 00:00 62 18 141/74 H 98 - Problem List & Annotations (1) Productive cough SNOMED Code(s): 33242554, 992736856, 244134641 Code(s): R05.8 - OTHER SPECIFIED COUGH Status: Acute Current Visit: Yes (2) Pneumonia SNOMED Code(s): 022807167 Code(s): J18.9 - PNEUMONIA, UNSPECIFIED ORGANISM Status: Acute Priority: High Current Visit: Yes Qualifiers: Pneumonia type: due to unspecified organism Laterality: bilateral Lung location: lower lobe of lung Qualified Code(s): J18.9 - Pneumonia, unspecified organism (3) General weakness SNOMED Code(s): 92932839 Code(s): R53.1 - WEAKNESS Status: Acute Priority: High Current Visit: Yes - Problem List Review Problem List Initiated/Reviewed/Updated: Yes - My Orders Last 24 Hours: My Active Orders 05/23/21 08:00 Furosemide [Lasix] 40 mg PO WITHBREAKFAST Metoprolol Succinate [Toprol XL] 25 mg PO DAILY Montelukast [Singulair] 10 mg PO DAILY Multivitamins [Tab-A-Irma] 1 tab PO DAILY Psyllium Husk/Aspartame [Metamucil Sugar Free] 1 pkt PO DAILY 05/23/21 08:39 Zolpidem [Ambien] 10 mg PO BEDTIME PRN 05/23/21 12:00 Warfarin [Coumadin] 2 mg PO SuMoWeThSa@1200 05/23/21 12:22 Echo Comp wo Cont [US] Routine 05/23/21 15:17 RT Aerosol Therapy [RC] 0800,1200,1600,20 05/23/21 16:00 Albuterol/Ipratropium [DuoNeb 3.0-0.5 MG/3 ML] 3 ml NEB QIDRT 05/24/21 11:00 Levofloxacin/Dextrose 5%-Water [Levaquin in D5W 750 MG/150 ML] 750 mg Premix Bag 1 bag IV Q48H 05/25/21 06:00 CBC WITH AUTO DIFF [HEME] DAILY CMP [COMPREHENSIVE METABOLIC PN,CMP] [CHEM] DAILY 05/25/21 12:00 Warfarin [Coumadin] 3 mg PO TuFr@1200 05/26/21 06:00 CBC WITH AUTO DIFF [HEME] DAILY CMP [COMPREHENSIVE METABOLIC PN,CMP] [CHEM] DAILY - Plan Plan:: Continue antibiotics, continue oxygen, attempt to wean. 05/24/20 Up to chair, 02 sat 89% on RA. Is 94 - 95% on O2 2L NC. Will continue with nebs, antibiotic, oxygen for now.
[2021-05-24] MEDS ORDERED: Levofloxacin/Dextrose 5%-Water 750 MG in Premix Bag 1 BAG IV SCH (11:00)
[2021-05-24] MEDS: Spironolactone 25 MG Tab PO SCH (11:02)
[2021-05-24] MEDS: Allopurinol 100 MG Tab PO SCH (11:04)
[2021-05-24] MEDS: Warfarin 2 MG Tab PO SCH (11:05)
[2021-05-24] MEDS: Furosemide 20 MG Tab PO SCH (11:05)
[2021-05-24] MEDS: Zolpidem 5 MG Tab PO PRN (20:03)
[2021-05-24] MEDS: Folic Acid 1 MG Tab PO SCH (20:04)
[2021-05-24] MEDS: Simvastatin 20 MG Tab PO SCH (20:05)
[2021-05-24] MEDS: Cholecalciferol (Vitamin D3) 25 MCG Tab PO SCH (20:05)
[2021-05-25] MEDS: Albuterol/Ipratropium 3.0-0.5 MG/3 ML Neb Soln NEB SCH ×2 (07:42→12:19)
[2021-05-25] MEDS: Metoprolol Succinate 25 MG Tab.ER PO SCH (07:42)
[2021-05-25] MEDS: Furosemide 40 MG Tab PO SCH (07:42)
[2021-05-25] MEDS: Multivitamin Tab PO SCH (07:43)
[2021-05-25] MEDS: Montelukast 10 MG Tab PO SCH (07:43)
[2021-05-25] MEDS: guaiFENesin 200 MG Tab PO SCH (07:43)
[2021-05-25] MEDS: Psyllium Husk Powder Sugar Free 5.85 GM Packet PO SCH (07:43)
--- NOTE | 2021-05-25 11:26 | PCM.DCSUM1 ---
Discharge Summary - Hospital Course Free Text/Narrative:: Admitted to hospital through ER with SOB, weakness. Treated with levofloxacin for PNA and has responded favorably. Sputum cx done, but it should be noted that he had IV antibiotics prior to it being performed. He is ambulatory and able to speak in full sentences. Will discharge him back home to his [facility]. Rx for Levofloxacin po (to complete a 5 day course, first doses given IV here) and a probiotic were written. Has nebulizer and meds at home. He should follow up with his PCP within 10 days, sooner if needed. Diagnosis: Stroke: No - Discharge Data Discharge Date: 05/25/21 Discharge Disposition: Home, Self-Care 01 Condition: Good - Referral to Home Health Primary Care Physician: MICAH Gómez - Discharge Diagnosis/Problem(s) (1) Productive cough SNOMED Code(s): 91974586, 735670763, 399789423 ICD Code: R05.8 - OTHER SPECIFIED COUGH Status: Acute Current Visit: Yes (2) Pneumonia SNOMED Code(s): 735177613 ICD Code: J18.9 - PNEUMONIA, UNSPECIFIED ORGANISM Status: Acute Priority: High Current Visit: Yes Qualifiers: Pneumonia type: due to unspecified organism Laterality: bilateral Lung location: lower lobe of lung Qualified Code(s): J18.9 - Pneumonia, unspecified organism (3) General weakness SNOMED Code(s): 45432451 ICD Code: R53.1 - WEAKNESS Status: Acute Priority: High Current Visit: Yes - Patient Instructions Diet: Usual Diet as Tolerated Activity: As Tolerated Notify Provider of: Fever, Increased Pain, Swelling and Redness, Drainage, Nausea and/or Vomiting - Discharge Plan *PRESCRIPTION DRUG MONITORING PROGRAM REVIEWED*: Not Applicable *COPY OF PRESCRIPTION DRUG MONITORING REPORT IN PATIENT ADRIENNE: Not Applicable Home Medications: Home Meds Cholecalciferol (Vitamin D3) [Vitamin D3] 2,000 unit PO BEDTIME 12/20/13 [History] Folic Acid 0.4 mg PO BEDTIME 12/20/13 [History] Zolpidem [Ambien] 2 tab PO BEDTIME PRN 12/20/13 [History] Simvastatin [Zocor] 20 mg PO BEDTIME tablet 11/25/15 [Rx] Furosemide 20 mg PO 1200 08/28/16 [History] Furosemide 40 mg PO WITHBREAKFAST 08/28/16 [History] Spironolactone [Aldactone] 12.5 mg PO 1200 12/30/16 [History] Warfarin [Coumadin] 3 mg PO ASDIRECTED 05/05/17 [History] Warfarin [Coumadin] 2 mg PO ASDIRECTED 05/18/19 [History] allopurinoL [Zyloprim] 100 mg PO 1200 05/18/19 [History] Albuterol/Ipratropium [DuoNeb 3.0-0.5 MG/3 ML] 3 ml INH DAILY 05/22/21 [History] Doxycycline Hyclate 100 mg PO BID 05/22/21 [History] Metoprolol Succinate [Toprol XL] 25 mg PO DAILY 05/22/21 [History] Montelukast [Singulair] 10 mg PO DAILY 05/22/21 [History] Multivitamin 1 tab PO DAILY 05/22/21 [History] Psyllium Husk [Metamucil] 1 tsp PO DAILY 05/22/21 [History] Oxygen Therapy Mode: Room Air (Continue nebulizer and respiratory treatments at home as previously ordered) Patient Handouts: Community-Acquired Pneumonia, Adult Forms: ED Department Discharge Referrals: Cathy Mckeon PA [Primary Care Provider] - Delores Dykes NP [ED Midlevel Provider] - - Discharge Summary/Plan Comment DC Time >30 min.: No Total # of Minutes for Discharge Time: 30 min - General Info Date of Service: 05/25/21 Admission Dx/Problem (Free Text: Pneumonia SOB Elevated SOB Subjective Update: Admitted to hospital through ER with SOB, weakness. Treated with levofloxacin for PNA and has responded favorably. Sputum cx done, but it should be noted mavis t he had IV antibiotics prior to it being performed. He is ambulatory and able to speak in full sentences. Will discharge him back home to his [facility]. Rx for Levofloxacin po (to complete a 5 day course, first doses given IV here) and a probiotic were written. Has nebulizer and meds at home. He should follow up with his PCP within 10 days, sooner if needed. Functional Status: Reports: Pain Controlled, Tolerating Diet, Ambulating, Urinating - Review of Systems General: Reports: No Symptoms HEENT: Reports: No Symptoms Pulmonary: Reports: Cough, Sputum Cardiovascular: Reports: No Symptoms Gastrointestinal: Reports: No Symptoms Genitourinary: Reports: No Symptoms Musculoskeletal: Reports: No Symptoms Skin: Reports: No Symptoms Neurological: Reports: No Symptoms Psychiatric: Reports: No Symptoms - Patient Data Vitals - Most Recent: Last Vital Signs Temp 97.9 F 05/25/21 08:00 Pulse 94 05/25/21 08:00 Resp 20 05/25/21 08:00 BP 130/70 05/25/21 08:00 Pulse Ox 93 L 05/25/21 08:00 Weight - Most Recent: 184 lb 6.4 oz I&O - Last 24 hours: Intake & Output 05/24/21 05/25/21 05/25/21 22:59 06:59 14:59 Intake Total 800 900 Output Total 700 Balance 100 900 Lab Results - Last 24 hrs: Laboratory Results - last 24 hr 05/24/21 05/25/21 05/25/21 Range/Units 20:15 07:00 07:00 WBC 10.2 (4.0-11.0) 10^3/uL RBC 4.53 (4.50-6.00) x10^6/uL Hgb 14.8 (14.0-18.0) g/dL Hct 44.8 (42.0-52.0) % MCV 98.9 H (83.0-97.0) fL MCH 32.7 H (27.0-32.0) pg MCHC 33.0 (32.0-36.0) g/dL RDW Coeff of Brooke 13.1 (11.0-15.0) % Plt Count 281 (150-400) 10^3/uL Immature Gran % (Auto) 0.6 (0.0-4.9) % Neut % (Auto) 69.3 (41-71) % Lymph % (Auto) 16.9 L (24-44) % [place] % (Auto) 10.6 H (0-10) % Eos % (Auto) 2.4 (0-6) % Baso % (Auto) 0.2 (0-1) % Neut # (Auto) 7.05 (1.80-8.00) x10^3/uL Lymph # (Auto) 1.72 (0.60-5.00) 10^3/uL [place] # (Auto) 1.08 (0.00-1.50) 10^3/uL Eos # (Auto) 0.24 (0.00-1.50) 10^3/uL Baso # (Auto) 0.02 (0.00-0.50) 10^3/uL Immature Gran # (Auto) 0.06 (0.00-0.49) 10^3/uL PT (9.7-12.3) SEC INR (0.92-1.18) Sodium 139 (136-145) mEq/L Potassium 4.3 (3.5-5.0) mEq/L Chloride 104 (98-106) mEq/L Carbon Dioxide 27 (21-32) mmol/L BUN 42 H (7-18) mg/dL Creatinine 2.0 H (0.7-1.3) mg/dL Est Cr Clr Drug Dosing 23.41 mL/min Estimated GFR (MDRD) 32 L (>=60) mL/min Glucose 102 H (75-99) mg/dL POC Glucose 187 H (75-105) mg/dL Calcium 8.2 L (8.4-10.1) mg/dL Total Bilirubin 0.8 (0.0-1.0) mg/dL AST 22 (15-37) U/L ALT 35 (12-78) U/L Alkaline Phosphatase 66 (46-116) U/L Total Protein 6.4 (6.4-8.2) g/dL Albumin 2.8 L (3.4-5.0) g/dL 05/25/21 Range/Units 07:13 WBC (4.0-11.0) 10^3/uL RBC (4.50-6.00) x10^6/uL Hgb (14.0-18.0) g/dL Hct (42.0-52.0) % MCV (83.0-97.0) fL MCH (27.0-32.0) pg MCHC (32.0-36.0) g/dL RDW Coeff of Brooke (11.0-15.0) % Plt Count (150-400) 10^3/uL Immature Gran % (Auto) (0.0-4.9) % Neut % (Auto) (41-71) % Lymph % (Auto) (24-44) % [place] % (Auto) (0-10) % Eos % (Auto) (0-6) % Baso % (Auto) (0-1) % Neut # (Auto) (1.80-8.00) x10^3/uL Lymph # (Auto) (0.60-5.00) 10^3/uL [place] # (Auto) (0.00-1.50) 10^3/uL Eos # (Auto) (0.00-1.50) 10^3/uL Baso # (Auto) (0.00-0.50) 10^3/uL Immature Gran # (Auto) (0.00-0.49) 10^3/uL PT 27.9 H (9.7-12.3) SEC INR 2.73 H (0.92-1.18) Sodium (136-145) mEq/L Potassium (3.5-5.0) mEq/L Chloride (98-106) mEq/L Carbon Dioxide (21-32) mmol/L BUN (7-18) mg/dL Creatinine (0.7-1.3) mg/dL Est Cr Clr Drug Dosing mL/min Estimated GFR (MDRD) (>=60) mL/min Glucose (75-99) mg/dL POC Glucose (75-105) mg/dL Calcium (8.4-10.1) mg/dL Total Bilirubin (0.0-1.0) mg/dL AST (15-37) U/L ALT (12-78) U/L Alkaline Phosphatase (46-116) U/L Total Protein (6.4-8.2) g/dL Albumin (3.4-5.0) g/dL BABS Results - Last 24 hrs: Microbiology 05/23/21 09:58 Gram Stain - Final Sputum - Expectorated Sputum Culture - Final Med Orders - Current: Current Medications Acetaminophen (Acetaminophen 325 Mg Tab) 650 mg PO Q4H PRN PRN Reason: Pain (Mild 1-3)/fever Albuterol/Ipratropium (Albuterol/Ipratropium 3.0-0.5 Mg/3 Ml Neb Soln) 3 ml NEB Q4H PRN PRN Reason: Dyspnea Last Admin: 05/23/21 12:01 Dose: 3 ml Documented by: Albuterol/Ipratropium (Albuterol/Ipratropium 3.0-0.5 Mg/3 Ml Neb Soln) 3 ml NEB QIDRT [facility] Last Admin: 05/25/21 07:42 Dose: 3 ml Documented by: Allopurinol (Allopurinol 100 Mg Tab) 100 mg PO 1200 [facility] Last Admin: 05/24/21 11:04 Dose: 100 mg Documented by: Cholecalciferol (Cholecalciferol (Vitamin D3) 25 Mcg Tab) 50 mcg PO BEDTIME [facility] Last Admin: 05/24/21 20:05 Dose: 50 mcg Documented by: Folic Acid (Folic Acid 1 Mg Tab) 0.5 mg PO BEDTIME [facility] Last Admin: 05/24/21 20:04 Dose: 0.5 mg Documented by: Furosemide (Furosemide 20 Mg Tab) 20 mg PO 1200 [facility] Last Admin: 05/24/21 11:05 Dose: 20 mg Documented by: Furosemide (Furosemide 40 Mg Tab) 40 mg PO WITHBREAKFAST [facility] Last Admin: 05/25/21 07:42 Dose: 40 mg Documented by: Guaifenesin (Guaifenesin 200 Mg Tab) 200 mg PO TID [facility] Last Admin: 05/25/21 07:43 Dose: 200 mg Documented by: Levofloxacin/Dextrose 750 mg/ (Premix) 150 mls @ 100 mls/hr IV Q48H [facility] Stop: 06/01/21 12:29 Last Admin: 05/24/21 10:58 Dose: 100 mls/hr Documented by: Metoprolol Succinate (Metoprolol Succinate 25 Mg Tab.Er) 25 mg PO DAILY [facility] Last Admin: 05/25/21 07:42 Dose: 25 mg Documented by: Montelukast Sodium (Montelukast 10 Mg Tab) 10 mg PO DAILY [facility] Last Admin: 05/25/21 07:43 Dose: 10 mg Documented by: Multivitamins/Minerals/Vitamin C (Multivitamin Tab) 1 tab PO DAILY [facility] Last Admin: 05/25/21 07:43 Dose: 1 tab Documented by: Ondansetron HCl (Ondansetron 4 Mg Tab.Dis) 4 mg PO Q6H PRN PRN Reason: nausea, able to take PO Psyllium Husk (Psyllium Husk Powder Sugar Free 5.85 Gm Packet) 1 pkt PO DAILY [facility] Last Admin: 05/25/21 07:43 Dose: 1 pkt Documented by: Simvastatin (Simvastatin 20 Mg Tab) 20 mg PO BEDTIME [facility] Last Admin: 05/24/21 20:05 Dose: 20 mg Documented by: Spironolactone (Spironolactone 25 Mg Tab) 12.5 mg PO 1200 [facility] Last Admin: 05/24/21 11:02 Dose: 12.5 mg Documented by: Warfarin Sodium (Warfarin 2 Mg Tab) 2 mg PO SuMoWeThSa@1200 [facility] Last Admin: 05/24/21 11:05 Dose: 2 mg Documented by: Warfarin Sodium (Warfarin 1 Mg Tab) 3 mg PO TuFr@1200 [facility] Zolpidem Tartrate (Zolpidem 5 Mg Tab) 10 mg PO BEDTIME PRN PRN Reason: Insomnia Last Admin: 05/24/21 20:03 Dose: 10 mg Documented by: Discontinued Medications Albuterol/Ipratropium (Albuterol/Ipratropium 3.0-0.5 Mg/3 Ml Neb Soln) 3 ml NEB ONETIME ONE Stop: 05/22/21 08:38 Last Admin: 05/22/21 08:45 Dose: 3 ml Documented by: Albuterol/Ipratropium (Albuterol/Ipratropium 3.0-0.5 Mg/3 Ml Neb Soln) Confirm Administered Dose 3 ml .ROUTE .STK-MED ONE Stop: 05/22/21 08:16 Last Admin: 05/22/21 10:27 Dose: Not Given Documented by: Furosemide (Furosemide 20 Mg/2 Ml Vial) 20 mg IVPUSH ONETIME ONE Stop: 05/22/21 10:35 Last Admin: 05/22/21 10:39 Dose: 20 mg Documented by: Levofloxacin/Dextrose 750 mg/ (Premix) 150 mls @ 100 mls/hr IV ONETIME ONE Stop: 05/22/21 11:53 Last Admin: 05/22/21 10:34 Dose: 100 mls/hr Documented by: Zolpidem Tartrate (Zolpidem 5 Mg Tab) 5 mg PO BEDTIME PRN PRN Reason: Insomnia Last Admin: 05/22/21 20:11 Dose: 5 mg Documented by: - Exam General: Reports: Alert, Oriented, Cooperative, No Acute Distress HEENT: Reports: Pupils Equal, Pupils Reactive, EOMI, Mucous Membr. Moist/[place]: Reports: Supple Lungs: Reports: Normal Respiratory Effort, Other (Scattered rhonchi RLL, improves with coughing) Cardiovascular: Reports: Regular Rate, Regular Rhythm GI/Abdominal Exam: Normal Bowel Sounds, Soft, Non-Tender, No Distention Back Exam: Reports: Normal Inspection, Full Range of Motion Extremities: Normal Inspection, Normal Range of Motion, Non-Tender, No Pedal Edema, Normal Capillary Refill Skin: Reports: Warm, Dry, Intact Neurological: Reports: No New Focal Deficit Psy/Mental Status: Reports: Alert, Normal Affect, Normal Mood
[2021-05-25] MEDS: Furosemide 20 MG Tab PO SCH (12:19)
[2021-05-25] MEDS: Allopurinol 100 MG Tab PO SCH (12:20)
[2021-05-25] MEDS: Spironolactone 25 MG Tab PO SCH (12:20)
[2021-05-25 12:39] VITALS: BP 142/59; PULSE 98
== END 2021-05-25 13:10 | disposition home or self-care (01) | DRG 195 ==
LOC: CC.ED 08:29 → CC.MS 10:39 → UNDOADMIN 10:43
PROVIDERS: ADMIT Nurse Practitioner Family; ATTEND Family Medicine
DX: J18.9 Pneumonia, unspecified organism (principal); I11.0 Hypertensive heart disease with heart failure; Z86.16 Personal history of COVID-19; R53.1 Weakness; I50.9 Heart failure, unspecified; H91.93 Unspecified hearing loss, bilateral; E78.5 Hyperlipidemia, unspecified; H54.7 Unspecified visual loss; E78.00 Pure hypercholesterolemia, unspecified; I25.2 Old myocardial infarction; Z95.1 Presence of aortocoronary bypass graft; Z87.01 Personal history of pneumonia (recurrent); Z97.4 Presence of external hearing-aid; Z87.19 Personal history of other diseases of the digestive system; Z79.4 Long term (current) use of insulin; Z95.0 Presence of cardiac pacemaker; Z86.14 Personal history of Methicillin resistant Staphylococcus aureus infection; Z90.49 Acquired absence of other specified parts of digestive tract; Z90.79 Acquired absence of other genital organ(s); G47.30 Sleep apnea, unspecified; K21.9 Gastro-esophageal reflux disease without esophagitis; M19.90 Unspecified osteoarthritis, unspecified site; M10.9 Gout, unspecified; E11.9 Type 2 diabetes mellitus without complications; Z85.46 Personal history of malignant neoplasm of prostate; Z79.01 Long term (current) use of anticoagulants; Z79.899 Other long term (current) drug therapy; Z88.1 Allergy status to other antibiotic agents; Z20.822 Contact with and (suspected) exposure to COVID-19
CPT/HCPCS: 36415; 71046; 80053; 82947; 83880; 85025; 85610; 86140; 87070; 87205; 93005; 93306; 94640; 96365; 96375; 99285-25; A9270-GY; J1940; J1956; J7620-GY; U0002